=== PATIENT | female | born 1970 | race Two or more races ===

== ENCOUNTER 2020-06-04 10:34 | Outpatient (REF) | payer MEDICAID, SELFPAY | END 2020-06-04 10:35 | disposition home or self-care (01) | LOC: HO.LAB 10:34 | PROVIDERS: PCP Nurse Practitioner Family; Visit Provider Internal Medicine | DX: Z20.828 Contact with and (suspected) exposure to other viral communicable diseases (principal) | CPT/HCPCS: 87635 ==

== ENCOUNTER 2020-09-25 13:42 | Emergency (ER) | payer MEDICAID, SELFPAY ==
[2020-09-25 13:46] VITALS: BP 155/86; PULSE 114; RESP 18; TEMP 37.1; O2SAT 97; BMI 28.8
--- NOTE | 2020-09-25 14:11 | ED.EXTPRO ---
HPI - Extremity Problem General Chief complaint: Extremity Problem Stated complaint: BOTH ARM PAIN Time Seen by Provider: 09/25/20 14:10 Source: patient Mode of arrival: ambulatory Limitations: language barrier History of Present Illness HPI Narrative: 50 y/o female presenting with non-traumatic bilateral arm and hand pain for the last 2 weeks. She states it is intermittent and aching and sharp in nature. She states it is worse in the morning. She has had pain like this on/off for years. She has never had it worked up. She is in between doctors at this time. She states her hands are weak in the morning but improve throughout the day. No numbness. MD Complaint: extremity pain Onset (ago): week(s) (2-3) Pain Consistency: intermittent Location: left, right and upper extremity Severity scale (1-10): 6 Quality: aching Radiation: none Relieving factors: nothing Exacerbating factors: range of motion and palpation Related Data Previous Rx's Medication Instructions Recorded cyclobenzaprine 10 mg PO TID PRN #12 tab 09/25/20 ibuprofen 600 mg PO Q8H PRN #20 tab 09/25/20 oxycodone 5 mg PO Q8H PRN #5 tab 09/25/20 Allergies Allergy/AdvReac Type Severity Reaction Status Date / Time No Known Allergies Allergy Unverified 05/03/20 18:22 Review of Systems Review of Systems: Constitutional: No Fever, No Chills Cardiovascular: No Chest Pain, No SOB, No Orthopnea, No Edema Respiratory: No Cough, No Sputum, No Wheezing, No dyspnea Gastrointestinal: No Nausea, No Vomiting, No Diarrhea, No abdominal Pain Musculoskeletal: + joint pain, + Myalgias Skin: No Skin Lesions, No rash Neuro: No Weakness, No Numbness Heme/Lymph: No Bruising, No Lymphadenopathy PMFSH Past Medical History Attestation statement: The following information was validated with the patient. Social History Social History Advance Directives: No Advance Directives Information Provided: No Physical Exam Vital Signs: Vital Signs: Last Vital Signs Temp 98.7 F 09/25/20 13:46 Pulse 114 H 09/25/20 13:46 Resp 18 09/25/20 13:46 BP 155/86 H 09/25/20 13:46 Pulse Ox 97 09/25/20 13:46 Body Mass Index 28.8 Appearance: Alert. Oriented X3. No acute distress. HEENT: normal inspection CVS: Normal heart rate and rhythm. Pulses normal. Respiratory: No respiratory distress. Skin: Skin warm and dry. Normal skin color. Normal skin turgor. No rashes. Extremities: normal UE inspection with normal shoulder, elbow and wrist ROM bilaterally. diffuse soft tissue tenderness from upper trapezius to lower forearm. no skin changes, ecchymosis, erythema or warmth. no joint swelling or point tenderness Neuro: Oriented X 3. No motor deficit. No sensory deficit. Course Course Course Narrative: 50 y/o female presenting with acute on chronic UE pain. Diffuse tenderness of soft tissues. ?trigger point pain ?undiagnosed fibromyalgia. No evidence of acute infection, injury. Will provide short term pain relief methods with muscle relaxer and NSAID. Encouraged to f/u with PCP for more definitive treatment and workup. Critical Care Time Critical Care Time Critical Care Time: No Discharge Plan Discharge Clinical Impression: Arm pain Patient Disposition: Home, Self-Care Instructions: Arm Pain (ED) Additional Instructions: Take the prescribed medications as needed for pain. Follow up with your doctor this week. If you have worsening pain, numbness, tingling or any other concerning symptom come back to the ER for further evaluation. Prescriptions: New ibuprofen 600 mg tablet 600 mg PO Q8H PRN (Reason: pain) Qty: 20 RF: 0 cyclobenzaprine 10 mg tablet 10 mg PO TID PRN (Reason: muscle spasm) Qty: 12 RF: 0 oxycodone 5 mg tablet 5 mg PO Q8H PRN (Reason: pain) Qty: 5 RF: 0 Interventions: ED Discharge Assessment Last Done: 09/25/20 15:27 Discharge Date/Time: 09/25/20 15:28
== END 2020-09-25 15:28 | disposition home or self-care (01) ==
PROVIDERS: Emergency Provider Emergency Medicine Emergency Medical Services; PCP Nurse Practitioner Family
DX: M79.602 Pain in left arm (principal); M79.601 Pain in right arm; Z79.899 Other long term (current) drug therapy
CPT/HCPCS: 99283

== ENCOUNTER 2020-10-29 09:58 | Outpatient (REF) | payer MEDICAID, SELFPAY ==
--- NOTE | ~2020-10-29 | MM_ITS ---
EXAMINATION: MM SCREENING DIGITAL BREAST TOMOSYNTHESIS, BILATERAL CLINICAL INFORMATION: Screening. Asymptomatic. The lifetime risk of breast cancer based on the Tyrer-Cuzick Model is 6%. COMPARISON: Mammography: 10/24/2019, 09/27/2018, 09/12/2017 TECHNIQUE: Digital breast tomosynthesis is performed in both the craniocaudal and mediolateral oblique views along with computer-aided detection (CAD). Synthesized 2D images are generated from the tomosynthesis. Additional right CC and left MLO views are provided. FINDINGS: The breasts are heterogeneously dense, which may obscure small masses (ACR BI-RADS breast composition Category c). Breast tissue composition borders on extremely dense. The cyst central 11:30 o'clock left breast is slightly decreased in size from prior exam 2019 and substantially decreased in size since 2018. There is no interval mass or architectural abnormality or abnormal calcifications. The axilla and skin contours are unremarkable. MM/MM tomosynthesis screening BI IMPRESSION: No mammographic evidence of malignancy. ASSESSMENT: BI-RADS 2: Benign RECOMMENDATION: Routine annual mammography screening. This patient's information was entered into a reminder system with a target due date for their next mammogram.
== END 2020-10-29 09:59 | disposition home or self-care (01) ==
LOC: HO.MAMMO 09:58
PROVIDERS: PCP Nurse Practitioner Family; Visit Provider Nurse Practitioner Family
DX: Z12.31 Encounter for screening mammogram for malignant neoplasm of breast (principal)
CPT/HCPCS: 77063; 77067

== ENCOUNTER 2020-11-06 08:15 | Emergency (ER) | payer MEDICAID, SELFPAY ==
[2020-11-06 08:36] VITALS: BP 133/80; PULSE 96; RESP 18; TEMP 37.4; O2SAT 99; BMI 29.4
--- NOTE | 2020-11-06 09:12 | ED.URI ---
HPI - URI/Sore Throat General Chief Complaint: Upper Respiratory Symptoms Stated Complaint: body ache Time Seen by Provider: 11/06/20 09:05 Source: patient and hall monitor Mode of arrival: ambulatory Limitations: language barrier History of Present Illness HPI Narrative: 50 yo female with past medical history of hypothyroidism here with complaints of body aches, cough, headache x 2 days Had exposure to [id number] who is COVID positive 5 days ago Related Data Previous Rx's Medication Instructions Recorded cyclobenzaprine 10 mg PO TID PRN #12 tab 09/25/20 ibuprofen 600 mg PO Q8H PRN #20 tab 09/25/20 oxycodone 5 mg PO Q8H PRN #5 tab 09/25/20 Allergies Allergy/AdvReac Type Severity Reaction Status Date / Time No Known Allergies Allergy Unverified 10/15/20 13:32 Review of Systems Review of Systems: Yes all other systems are reviewed and are negative Constitutional: Constitutional: Reports no additional constitutional complaints, Reports body ache(s), Denies chills, Denies fever(s), Reports headache(s) and Denies weakness Eyes: Eyes: Reports no additional eye complaints and Denies change in vision ENT: Reports system reviewed and no additional complaints, except as documented, Denies dizziness, Reports headache(s), Denies nasal congestion, Denies nasal discharge and Denies neck pain Cardiovascular: Cardiovascular: Reports no additional cardiovascular complaints, Denies chest pain, Denies leg edema and Denies dyspnea Respiratory: Respiratory: Reports no additional respiratory complaints, Reports cough and Denies dyspnea Gastrointestinal: Gastrointestinal: Reports no additional gastrointestinal complaints, Denies abdominal pain, Denies diarrhea, Denies nausea and Denies vomiting Genitourinary: Genitourinary: Reports no additional female genitourinary complaints and Denies urinary incontinence Musculoskeletal: Musculoskeletal: Reports no additional musculoskeletal complaints, Denies back pain, Denies arthralgias, Denies joint swelling, Denies neck pain, Denies numbness and Denies tingling Integumentary/Breasts: Skin/Breast: Reports system reviewed and no additional complaints, except as docu and Denies rash Neurologic: Reports system reviewed and no additional complaints, except as documented, Denies Abnormal speech present, Denies dizziness, Reports headache(s), Denies numbness, Denies tingling and Denies weakness [facility] Past Medical History Attestation statement: The following information was validated with the patient. Source: old records reviewed and nursing notes reviewed Medical History Adult hypothyroidism Social History Social History Advance Directives: No Advance Directives Information Provided: No Physical Exam Vital Signs: Vital Signs: Last Vital Signs Temp 99.3 F 11/06/20 08:36 Pulse 96 11/06/20 08:36 Resp 18 11/06/20 08:36 BP 133/80 11/06/20 08:36 Pulse Ox 100 11/06/20 09:35 Body Mass Index 29.4 Const: General: cooperative, healthy appearing, comfortable and no acute distress Orientation/consciousness: patient oriented x3 Limitations: no limitations HENMT: Head: Yes normal to inspection Ears: hearing grossly normal bilaterally General nose exam: Normal external nose present Face and sinus: Yes normal facial exam Mouth: Normal oral and palatal mucosa present Throat: Yes posterior oropharynx normal Eyes: General: appearance normal, both eyes and all related structures Pupils: Equal, round and reactive pupils present Neck: Neck: Yes normal visual inspection Chest: Chest palpation & inspection: normal inspection of the chest Resp: Effort & Inspection: normal respiratory effort Auscultation: clear to auscultation bilaterally Cardio: Rate: regular rate Rhythm: regular rhythm Peripheral pulses: Peripheral pulses 2+ throughout GI: Inspection: Yes normal to inspection Palpation (GI): Soft to palpation and nontender Auscultation: normal bowel sounds Back/Spine/Pelvis: Thoracic/Lumbar Spine: thoracic and lumbar spine normal to inspection Skin: General skin exam: no rashes or lesions noted Neuro: General: patient oriented x3, no focal motor deficits and normal sensation to monofilament Cranial nerves: Yes Equal, round and reactive pupils present Cognition (Neuro): normal cognition Speech: No Abnormal speech present Gait exam (Neuro): Normal gait present Motor exam (neuro): 5/5 motor strength present throughout Extrem: General: Yes normal to inspection Course Course Course Narrative: flu like symptoms x several days with recent COVID exposure. Will send covid testing. 0950-COVID positive. Exam is benign. Vital signs stable. Speaking full sentences in no apparent distress with oxygen saturations greater than 99%. Reviewed worrisome signs and symptoms of when to return to the emergency department. Comfortable discharge home. MDM - URI/Sore Throat Medical Records Attestation: I reviewed the patient's medical records. Lab Data Attestation: I reviewed the patient's lab results. Labs: Lab Results 11/06/20 Range/Units 09:34 COVID-19 (MILA) Positive A (Negative) COVID-19 Clin Com See Note Discharge Plan Discharge Clinical Impression: COVID-19 Patient Disposition: Home, Self-Care Instructions: COVID-19 (Coronavirus Disease 2019) (ED) Additional Instructions: You have tested positive for COVID-19. Per the CDC you must quarantine for total of 10 days from when her symptoms started and her symptoms mostly resolved for greater than 24 hours before discontinuing her quarantine. Take Motrin or Tylenol if able as needed for pain or fever Increase fluids, rest Return to the emergency department for shortness of breath, chest pain, fever that does not respond to Motrin and Tylenol. Consider buying a pulse oximeter and monitoring her oxygen saturations at home and returning to the emergency department for oxygen saturations less than 90% Prescriptions: No Action ibuprofen 600 mg tablet 600 mg PO Q8H PRN (Reason: pain) Qty: 20 RF: 0 cyclobenzaprine 10 mg tablet 10 mg PO TID PRN (Reason: muscle spasm) Qty: 12 RF: 0 oxycodone 5 mg tablet 5 mg PO Q8H PRN (Reason: pain) Qty: 5 RF: 0 Referrals: Alireza Ritchie NP [Primary Care Provider] - 2 days Interventions: ED Discharge Assessment Last Done: 11/06/20 10:11 Discharge Date/Time: 11/06/20 10:11 Print Language: Vietnamese
[2020-11-06 09:35] VITALS: O2SAT 100
[2020-11-06 09:49] LABS: COVID-19 Test Positive (Negative)
== END 2020-11-06 10:11 | disposition home or self-care (01) ==
PROVIDERS: Nurse Practitioner Family; Emergency Provider Emergency Medicine Emergency Medical Services; PCP Nurse Practitioner Family
DX: U07.1 COVID-19 (principal)
CPT/HCPCS: 36415; 87635; 99283

== ENCOUNTER 2021-01-10 12:30 | Outpatient (REF) | payer MEDICAID, SELFPAY ==
[2021-01-10 14:13] LABS: MANUAL DIFF FLAG NO
[2021-01-10 14:16] LABS: Glucose Urine UA NEG (NEG); Leukocyte Esterase Urine NEG (NEG); Nitrite Urine NEG (NEG); PH 6.5 (5.0-8.0); Urine Blood NEG (NEG); Urine Ketones NEG (NEG); Urine Protein NEG (NEG-TRACE)
[2021-01-10 14:17] LABS: Appearance Urine CLEAR; Color Urine YELLOW
[2021-01-10 14:20] LABS: Basophils Absolute Auto 0.1 X10*3/uL (0.0-0.2); Basophils Percent Auto 0.8 % (0-2); Eosinophils Absolute Auto 0.1 X10*3/uL (0.0-0.4); Eosinophils Percent Auto 1.7 % (0-4); Hematocrit 34.9 % (37-47); Hemoglobin 10.9 g/dl (12.0-16.0); Imm Gran Abs Auto 0.02 X10*3/uL (0.00-0.03); Imm Gran Pct Auto 0.3 % (0.0-0.4); Lymphocytes Absolute Auto 2.2 X10*3/uL (1.2-4.9); Lymphocytes Percent Auto 36.4 % (20-40); Mean Corpuscular HGB Conc 31.2 g/dl (31.0-35.0); Mean Corpuscular Hemoglobin 24.8 pg (27.0-33.0); Mean Corpuscular Volume 79.3 fL (80-98); Mean Platelet Volume 11.2 fL (9.4-12.3); Monocytes Absolute Auto 0.6 X10*3/uL (0.1-1.2); Monocytes Percent Auto 9.8 % (2-11); Neutrophils Absolute Auto 3.1 X10*3/uL (2.0-8.3); Platelet Count 274 X10*3/uL (160-400); Red Cell Distribution Width 17.4 % (11.0-16.0)
[2021-01-10 14:27] LABS: RBC Urine 0 /HPF (0); Squamous Epithelial Cell Urine TRACE /LPF; WBC Urine 0 /HPF (0-4)
[2021-01-10 14:41] LABS: Alanine Aminotransferase 23 U/L (0-31); Albumin Level 4.2 g/dL (3.5-5.0); Alkaline Phosphatase 129 U/L (39-117); Anion Gap 13 (12-20); Aspartate Amino Transferase 25 U/L (5-31); Bilirubin Total 0.5 mg/dL (0.0-1.0); Blood Urea Nitrogen 12 mg/dL (9-16); C Reactive Protein 0.52 mg/dL (< or = 0.50); Calcium 9.2 mg/dL (8.4-10.2); Carbon Dioxide 27 mmol/L (22-29); Chloride 103 mmol/L (96-108); Estimated Glomerular Filt Rate 60; Glucose Random 72 mg/dL (60-115); Rheumatoid Factor < 15.0 IU/mL (<15.0); Sodium 139 mmol/L (135-145); Total Protein 7.2 g/dL (6.5-8.0)
[2021-01-10 15:14] LABS: Erythrocyte Sedimentation Rate 10 MM/HR (0-20)
[2021-01-11 09:31] LABS: Thyroglobulin Antibodies 8 IU/mL (< or = 1); Thyroid Peroxidase Antibodies 46 IU/mL (<9)
[2021-01-11 12:51] LABS: Cyclic Citrullinated Peptide <16 UNITS
[2021-01-11 14:25] LABS: Anti DNA DS Antibody 1 IU/mL; Antibody to SS-A Antigen <1.0 NEG AI (<1.0 NEG); Antibody to SS-B Antigen <1.0 NEG AI (<1.0 NEG); SM/Ribonucleoprotein Ab <1.0 NEG AI (<1.0 NEG); Smith Protein <1.0 NEG AI (<1.0 NEG)
[2021-01-11 20:06] LABS: Complement C3 89 mg/dL (83-193)
== END 2021-01-10 12:31 | disposition home or self-care (01) ==
LOC: HO.LAB 12:30
PROVIDERS: Visit Provider Student in an Organized Health Care Education/Training Program
DX: R76.8 Other specified abnormal immunological findings in serum (principal); Z79.899 Other long term (current) drug therapy; Z87.891 Personal history of nicotine dependence
CPT/HCPCS: 36415; 80053; 81001; 84443; 85025; 85652; 86140; 86160; 86200; 86225; 86235; 86376; 86431; 86800; 99202

== ENCOUNTER → 2021-02-06 15:54 | Outpatient (BNVA) | payer MEDICAID, SELFPAY | PROVIDERS: PCP Nurse Practitioner Family; Visit Provider Student in an Organized Health Care Education/Training Program | DX: R76.8 Other specified abnormal immunological findings in serum (principal); E03.9 Hypothyroidism, unspecified; E53.8 Deficiency of other specified B group vitamins; E55.9 Vitamin D deficiency, unspecified; F41.8 Other specified anxiety disorders; F17.210 Nicotine dependence, cigarettes, uncomplicated | CPT/HCPCS: 99212 ==

== ENCOUNTER 2021-06-20 10:29 | Outpatient (REF) | payer MEDICAID, SELFPAY ==
--- NOTE | ~2021-06-20 | XR_ITS ---
EXAMINATION: XR HAND, RIGHT XR HAND, LEFT CLINICAL INFORMATION: Pain. COMPARISON: Right wrist radiographs dated 07/19/2013. TECHNIQUE: AP, oblique, and lateral views of the right and left hand. FINDINGS: Right hand: No fracture or dislocation. Normal carpal alignment. No significant joint space narrowing or marginal osteophytes. No osseous erosion. No periarticular osteopenia. No abnormal soft tissue calcification. Left hand: No fracture or dislocation. Normal carpal alignment. No significant joint space narrowing or marginal osteophytes. No osseous erosion. No periarticular osteopenia. No abnormal soft tissue calcification. XR/XR hand RT min 3V IMPRESSION: Right hand: Unremarkable examination. Left hand: Unremarkable examination.
--- NOTE | ~2021-06-20 | XR_ITS ---
EXAMINATION: XR HAND, RIGHT XR HAND, LEFT CLINICAL INFORMATION: Pain. COMPARISON: Right wrist radiographs dated 07/19/2013. TECHNIQUE: AP, oblique, and lateral views of the right and left hand. FINDINGS: Right hand: No fracture or dislocation. Normal carpal alignment. No significant joint space narrowing or marginal osteophytes. No osseous erosion. No periarticular osteopenia. No abnormal soft tissue calcification. Left hand: No fracture or dislocation. Normal carpal alignment. No significant joint space narrowing or marginal osteophytes. No osseous erosion. No periarticular osteopenia. No abnormal soft tissue calcification. XR/XR hand LT min 3V IMPRESSION: Right hand: Unremarkable examination. Left hand: Unremarkable examination.
== END 2021-06-20 10:30 | disposition home or self-care (01) ==
LOC: HO.XRAY 10:29
PROVIDERS: Visit Provider General Practice
DX: M79.642 Pain in left hand (principal); M79.641 Pain in right hand
CPT/HCPCS: 73130

== ENCOUNTER 2021-07-19 09:48 | Outpatient (REF) | payer MEDICAID, SELFPAY ==
--- NOTE | 2021-07-19 09:54 | EMG_ITS ---
HISTORY OF PRESENT ILLNESS: This is a 51-year-old woman with a 2-month history of bilateral upper extremity pain and numbness. She has no other medical problems. PHYSICAL EXAMINATION: On examination, she is alert and oriented with normal intellectual functions. Cranial nerves II through XII are normal. Muscle tone and strength are normal in all 4 extremities. Deep tendon reflexes symmetrical. No Tinel or Phalen sign. IMPRESSION: Carpal tunnel syndrome. Nerve conduction EMG study: Moderately severe carpal tunnel syndrome bilaterally. Normal EMG of the right C5-T1 innervated muscles. MD CARMELA De Anda/TOMMY / [phone]
== END 2021-07-19 09:49 | disposition home or self-care (01) ==
LOC: HO.NEURO 09:48
PROVIDERS: PCP General Practice; Visit Provider General Practice
DX: G56.03 Carpal tunnel syndrome, bilateral upper limbs (principal)
CPT/HCPCS: 95885; 95913

== ENCOUNTER 2021-08-16 12:05 | Outpatient (REF) | payer MEDICAID, SELFPAY ==
[2021-08-16 13:14] LABS: Binax Internal Control QC Valid; Binax Lot number: 9864; Binax Now Covid-19 Ag Negative (Negative)
== END 2021-08-16 12:06 | disposition home or self-care (01) ==
LOC: HO.LAB 12:05
PROVIDERS: Visit Provider Internal Medicine
DX: Z20.822 Contact with and (suspected) exposure to COVID-19 (principal)
CPT/HCPCS: 36415; C9803

== ENCOUNTER 2021-11-18 14:00 | Outpatient (RCR) | payer MEDICAID, SELFPAY | END 2021-12-03 08:05 | disposition home or self-care (01) | LOC: HO.OT 14:00 | PROVIDERS: PCP Nurse Practitioner Primary Care; Visit Provider General Practice | DX: G56.03 Carpal tunnel syndrome, bilateral upper limbs (principal) | CPT/HCPCS: 29125; 97033; 97035; 97110; 97140; 97166; 97760 ==

== ENCOUNTER → 2021-11-20 10:05 | Outpatient (BNVA) | payer MEDICAID, SELFPAY | PROVIDERS: PCP Nurse Practitioner Primary Care; Visit Provider Orthopaedic Surgery | DX: G56.03 Carpal tunnel syndrome, bilateral upper limbs (principal); M65.4 Radial styloid tenosynovitis [de Quervain] | CPT/HCPCS: 20550; 99202; J1100 ==

== ENCOUNTER 2021-11-25 09:46 | Day surgery (SDC) | payer MEDICAID, SELFPAY ==
[2021-11-25 10:07] VITALS: BP 131/73; PULSE 84; RESP 16; TEMP 36.4; O2SAT 99
[2021-11-25 10:08] VITALS: BMI 32.5
--- NOTE | 2021-11-25 12:23 | MHC.SHP ---
Pre-Procedural Eval Section A Date of Service: 11/25/21 The patient is an INPATIENT: No Changes since office visit: No Cold of Flu in the past 2 weeks, No New Medical Problems, No Changes in Medication and No Patient answered all questions The History & Physical has been completed within 30 days and I have reviewed it.: Yes Section B Chief Complaint: carpal tunnel Allergies: Allergies Allergy/AdvReac Type Severity Reaction Status Date / Time No Known Allergies Allergy Verified 11/25/21 10:04 Plan I have reviewed the history and physical and performed a pertinent physical examination on my patient. No changes have occurred unless specified.
--- NOTE | 2021-11-25 12:23 | W.PM.OPN ---
Operative Note Operative Note Date of Service: 11/25/21 Narrative: Operative Note Preop diagnosis: 1. Left carpal tunnel syndrome 2. Left DeQuervain's tenosynovitis Postop diagnosis: 1. Left carpal tunnel syndrome 2. Left DeQuervain's tenosynovitis Procedure: 1. Left carpal tunnel release 2. Left 1st dorsal compartment release Surgeon: Joya Batista MD Anesthesia: local block using 1% lidocaine with epinephrine Findings: Thickened transverse carpal ligament Thickened 1st dorsal compartment. EBL: Less than 5 mL Tourniquet time: None Specimens: None Complications: None Disposition: Brought to recovery room in stable condition Plan: Follow-up for 7-10 days for wound check and suture removal Indications: The patient is 51 years old, with left carpal tunnel syndrome and DeQuervain's tenosynovitis that has been unresponsive to nonoperative management. The risks and benefits of operative treatment including but not limited to risk of damage to blood vessels, nerves, tendons, infection, persistent pain, persistent symptoms, recurrence or possible need for additional surgery were discussed with the patient and the patient wishes to proceed with surgery. Procedure: Once consent was obtained a local block was performed in the preop area using a combination of 1% lidocaine with epinephrine. The patient was then brought back to the operating suite and placed on the operative table in supine position. A tourniquet was applied to the proximal aspect of the left upper extremity and the limb was prepped and draped in a standard surgical fashion. Once assured that we had a good block, a 1.5 cm longitudinal incision was made centered over the left carpal tunnel. The incision was made through the skin to the subcutaneous tissues using a #15 blade. Dissection was made down to the level of the transverse carpal ligament with care being taken to protect the palmar cutaneous nerve. Once the transverse carpal ligament was clearly visualized, a longitudinal incision was made in the transverse carpal ligament 1st using a #15 blade, then using tenotomy scissors under direct visualization. Care was taken to look for and protect the motor branch of the median nerve when seen in this area. Once satisfied with our carpal tunnel release the wound was irrigated with normal saline. Once assured that we had a good block, a 1.5 cm longitudinal incision was made centered over the 1st dorsal compartment as it passed over the radial styloid of the left wrist. The incision was made through the skin to the subcutaneous tissues using a #15 blade. Careful dissection was made down to the level of the 1st dorsal compartment using tenotomy scissors, with care being taken to protect the nearby branches of the superficial radial nerve. Once the 1st dorsal compartment was exposed, A longitudinal incision was made in the 1st dorsal compartment 1st using a #15 blade, then using tenotomy scissors under direct visualization. The 1st dorsal compartment was noted to be thickened. Following our release, we saw smooth gliding abductor pollicis longus and extensor pollicis brevis tendons. Once satisfied with our 1st dorsal compartment release the wound was copiously irrigated with normal saline and hemostasis was obtained with a brief period of local pressure. The subcutaneous layer was closed with some 4-0 Vicryl suture, and the skin edges were reapproximated with some 5.0 nylon suture material. A sterile dressing was applied. The patient appears to have tolerated the procedure well and with no complications. All digits were well vascularized at the conclusion of the case.
[2021-11-25 13:48] VITALS: BP 116/71; PULSE 77; RESP 18; TEMP 36.6; O2SAT 97
== END 2021-11-25 14:27 | disposition home or self-care (01) ==
PROVIDERS: PCP Nurse Practitioner Primary Care; Visit Provider Orthopaedic Surgery
PROC: (CPT 64721; principal; 2021-11-25 11:00)
DX: G56.02 Carpal tunnel syndrome, left upper limb (principal); M65.4 Radial styloid tenosynovitis [de Quervain]
CPT/HCPCS: 64721; 25000; J0171

== ENCOUNTER → 2021-12-10 09:52 | Outpatient (BNVA) | payer MEDICAID, SELFPAY | PROVIDERS: PCP Nurse Practitioner Primary Care; Visit Provider Orthopaedic Surgery | DX: Z47.89 Encounter for other orthopedic aftercare (principal); M65.4 Radial styloid tenosynovitis [de Quervain]; G56.01 Carpal tunnel syndrome, right upper limb; Z86.69 Personal history of other diseases of the nervous system and sense organs | CPT/HCPCS: 99212 ==

== ENCOUNTER 2022-01-24 14:54 | Outpatient (REF) | payer MEDICAID, SELFPAY ==
--- NOTE | ~2022-01-24 | MM_ITS ---
EXAMINATION: MM SCREENING DIGITAL BREAST TOMOSYNTHESIS, BILATERAL CLINICAL INFORMATION: Screening. Asymptomatic. The lifetime risk of breast cancer based on the Tyrer-Cuzick Model is 6%. COMPARISON: Mammography: 10/29/2020, 10/24/2019, 09/27/2018, ultrasound right breast 03/25/2017, ultrasound left breast 10/09/2009. TECHNIQUE: Digital breast tomosynthesis is performed in both the craniocaudal and mediolateral oblique views along with computer-aided detection (CAD). Synthesized 2D images are generated from the tomosynthesis. FINDINGS: The breasts are heterogeneously dense, which may obscure small masses (ACR BI-RADS breast composition Category c). There are no significant masses, abnormal calcifications, or other abnormalities. There is a smooth nodule mid 12:00 left breast decreased in size from prior studies consistent with regressing fibrocystic changes as previously noted. The axilla and skin contours are unremarkable. No significant changes. MM/MM tomosynthesis screening BI IMPRESSION: No mammographic evidence of malignancy. ASSESSMENT: BI-RADS 2: Benign RECOMMENDATION: Routine annual mammography screening. This patient's information was entered into a reminder system with a target due date for their next mammogram.
== END 2022-01-24 14:55 | disposition home or self-care (01) ==
LOC: HO.MAMMO 14:54
PROVIDERS: Visit Provider Nurse Practitioner Primary Care
DX: Z12.31 Encounter for screening mammogram for malignant neoplasm of breast (principal)
CPT/HCPCS: 77063; 77067

== ENCOUNTER 2022-05-28 14:21 | Outpatient (REF) | payer MEDICAID, SELFPAY ==
--- NOTE | ~2022-05-28 | US_ITS ---
EXAMINATION: US PELVIS CLINICAL INFORMATION: Ovarian cyst, left side. COMPARISON: None. TECHNIQUE: Ultrasound of the pelvis is performed using both transabdominal and transvaginal transducers along with Doppler. Transvaginal imaging is performed due to inadequate visualization transabdominally. FINDINGS: UTERUS: The uterus is anteverted, anteflexed and measures 6.0 cm in length, 2.4 mL in AP and 3.9 cm in transverse dimension. The double wall endometrial thickness is 0.4 cm. The uterus is smooth in contour and has normal myometrial echogenicity. No visible fibroid. ADNEXA: Both ovaries are visualized. There is normal color flow to the adnexa. There is no ovarian torsion. There is no pelvic ascites or fluid collection. Right ovary measures 2.8 x 1.4 x 1.6 cm and volume 3.3 mL. There is punctate calcification seen. Left ovary is not visualized. There is no free fluid in the cul-de-sac. US/US pelvic and transvaginal IMPRESSION: Unremarkable uterus and right ovary. Left ovary is not seen.
== END 2022-05-28 14:22 | disposition home or self-care (01) ==
LOC: HO.US 14:21
PROVIDERS: Visit Provider Advanced Practice Midwife
DX: G56.01 Carpal tunnel syndrome, right upper limb (principal); M65.4 Radial styloid tenosynovitis [de Quervain]; N83.292 Other ovarian cyst, left side
CPT/HCPCS: 76830; 76856; 99212

== ENCOUNTER 2022-06-12 12:13 | Day surgery (SDC) | payer MEDICAID, SELFPAY ==
--- NOTE | 2022-06-12 10:03 | W.PM.OPN ---
Operative Note Operative Note Date of Service: 06/12/22 Narrative: Operative Note Preop diagnosis: 1. right DeQuervain's tenosynovitis 2. Right carpal tunnel syndrome Postop diagnosis: 1. right DeQuervain's tenosynovitis 2. Right carpal tunnel syndrome Procedure: 1. right 1st dorsal compartment release 2. Right carpal tunnel release Surgeon: Joya Batista MD Anesthesia: local block using 1% lidocaine with epinephrine Findings: Thickened 1st dorsal compartment. thickened transverse carpal ligament EBL: Less than 5 mL Tourniquet time: None Specimens: None Complications: None Disposition: Brought to recovery room in stable condition Plan: Follow-up for 7-10 days for wound check and suture removal Indications: The patient is 51 years old, with right carpal tunnel syndrome and right DeQuervain's tenosynovitis that has been unresponsive to nonoperative management. The risks and benefits of operative treatment including but not limited to risk of damage to blood vessels, nerves, tendons, infection, persistent pain, persistent symptoms, recurrence or possible need for additional surgery were discussed with the patient and the patient wishes to proceed with surgery. Procedure: Once consent was obtained a local block was performed in the preop area using a combination of 1% lidocaine with epinephrine. The patient was then brought back to the operating suite and placed on the operative table in supine position. A tourniquet was applied to the proximal aspect of the right upper extremity and the limb was prepped and draped in a standard surgical fashion. Once assured that we had a good block, a 2.0 cm longitudinal incision was made centered over the right carpal tunnel. The incision was made through the skin to the subcutaneous tissues using a #15 blade. Dissection was made down to the level of the transverse carpal ligament with care being taken to protect the palmar cutaneous nerve. Once the transverse carpal ligament was clearly visualized, a longitudinal incision was made in the transverse carpal ligament 1st using a #15 blade, then using tenotomy scissors under direct visualization. Care was taken to look for and protect the motor branch of the median nerve when seen in this area. Once satisfied with our carpal tunnel release the wound was irrigated with normal saline. Once assured that we had a good block, a 1.5 cm longitudinal incision was made centered over the 1st dorsal compartment as it passed over the radial styloid of the right wrist. The incision was made through the skin to the subcutaneous tissues using a #15 blade. Careful dissection was made down to the level of the 1st dorsal compartment using tenotomy scissors, with care being taken to protect the nearby branches of the superficial radial nerve. Once the 1st dorsal compartment was exposed, A longitudinal incision was made in the 1st dorsal compartment 1st using a #15 blade, then using tenotomy scissors under direct visualization. The 1st dorsal compartment was noted to be thickened. Following our release, we saw smooth gliding abductor pollicis longus and extensor pollicis brevis tendons. Once satisfied with our 1st dorsal compartment release the wound was copiously irrigated with normal saline and hemostasis was obtained with a brief period of local pressure. The subcutaneous layer was closed with some 4-0 Vicryl suture, and the skin edges were reapproximated with some 5.0 nylon suture material. A sterile dressing was applied. The patient appears to have tolerated the procedure well and with no complications. All digits were well vascularized at the conclusion of the case.
[2022-06-12 12:46] VITALS: BP 128/71; PULSE 87; RESP 16; TEMP 36.2; O2SAT 96; BMI 29.6
--- NOTE | 2022-06-12 15:34 | MHC.SHP ---
Pre-Procedural Eval Section A Date of Service: 06/12/22 The patient is an INPATIENT: No Changes since office visit: No Cold of Flu in the past 2 weeks, No New Medical Problems, No Changes in Medication and No Patient answered all questions The History & Physical has been completed within 30 days and I have reviewed it.: Yes Section B Chief Complaint: Carpal tunnel syndrome,radial styloid tenosynoviti Allergies: Allergies Allergy/AdvReac Type Severity Reaction Status Date / Time No Known Allergies Allergy Verified 05/28/22 09:42 Plan I have reviewed the history and physical and performed a pertinent physical examination on my patient. No changes have occurred unless specified.
== END 2022-06-12 16:04 | disposition home or self-care (01) ==
PROVIDERS: Visit Provider Orthopaedic Surgery
PROC: (CPT 64721; principal; 2022-06-12 13:40)
PROC: (CPT 64721; 2022-06-12 13:40)
DX: G56.01 Carpal tunnel syndrome, right upper limb (principal); M65.4 Radial styloid tenosynovitis [de Quervain]; M79.641 Pain in right hand; R20.0 Anesthesia of skin; E03.9 Hypothyroidism, unspecified; E53.8 Deficiency of other specified B group vitamins; E55.9 Vitamin D deficiency, unspecified; Z87.891 Personal history of nicotine dependence
CPT/HCPCS: 64721; 25000; J0171

== ENCOUNTER 2022-08-29 16:54 | Emergency (ER) | payer MEDICAID, SELFPAY ==
--- NOTE | ~2022-08-29 | US_ITS ---
EXAMINATION: US VENOUS ULTRASOUND WITH DOPPLER LOWER EXTREMITY, RIGHT CLINICAL INFORMATION: Right calf pain. COMPARISON: None TECHNIQUE: Ultrasound of the deep veins is performed from the hip to the calf with compression sonography and color and pulse Doppler assessment. Spectral analysis with color-flow imaging is performed. FINDINGS: There is normal venous compression and respiratory variation and augmented flow. The visualized common femoral vein, superficial femoral vein, profunda femoral vein, popliteal vein, and the trifurcation region shows no evidence of deep venous thrombosis. There is no significant popliteal fossa cyst. If the patient's symptoms persist, followup ultrasound in 5 days 7 days might be of value to exclude proximal propagation from a non-visualized calf vein. US/US venous duplex LE RT IMPRESSION: No DVT demonstrated in the right lower extremity.
--- NOTE | ~2022-08-29 | CT_ITS ---
EXAMINATION: CT HEAD WITHOUT CONTRAST CLINICAL INFORMATION: Headache. Blurred vision. COMPARISON: None. TECHNIQUE: Contiguous axial imaging was performed from the skull base to vertex without intravenous administration of contrast. Coronal and sagittal reformatted images are performed at the CT scanner. [This CT examination was performed using dose optimization techniques as appropriate, variously including the following: *Automated exposure control *Adjustment of mA and/or kV according to patient size (this includes techniques or standardized protocols for targeted exams where dose is matched to indication/reason for exam; i.e. extremities or head) *Use of iterative reconstruction technique] DLP: 678 mGy-cm. FINDINGS: There is no evidence of acute intracranial hemorrhage or territorial infarction. No abnormal mass-effect or midline shift is seen. Jensen to white matter differentiation is well preserved. No extra-axial fluid collections are identified. The ventricles are normal in size. There is no abnormal attenuation within the brain parenchyma. There is no osseous abnormality. The mastoid air cells and visualized portions of the paranasal sinuses are well-aerated. CT/CT head/brain wo IV con IMPRESSION: No acute intracranial pathology.
[2022-08-29 16:59] VITALS: BP 159/84; PULSE 85; RESP 18; TEMP 36.6; O2SAT 99; BMI 32.1
--- NOTE | 2022-08-29 17:06 | ED_ITS ---
HPI - Headache General Chief Complaint: Headache <Adriana Grissom NP - Last Filed: 08/29/22 17:09> Stated Complaint: headache, blurred vision, xray for neck pain? <Adriana Grissom NP - Last Filed: 08/29/22 17:09> Time Seen by Provider: 08/29/22 19:26 <Adriana Grissom NP - Last Filed: 08/29/22 17:09> Source: patient <KANU hC - Last Filed: 08/29/22 21:41> Mode of arrival: ambulatory <KANU Ch Last Filed: 08/29/22 21:41> Limitations: no limitations <KANU Ch Last Filed: 08/29/22 21:41> History of Present Illness HPI Narrative: 52-year-old female history of carpal tunnel syndrome, de Quervain tenosynovitis presenting to the emergency department with complaints of headache, bilateral frontal headache that has been intermittent and severe in nature for the past 2 weeks, not improving with [id number] medications. She tells me when she takes Tylenol it gets better slightly and then once it is wearing off it comes back again. She rates it a 7/10. She reports that she has had intermittent blurred vision for the past 2 weeks when she gets severe pain. She also tells me that this feels like her typical headache however did not going away. Patient reports that she is also having dull aching pain to her right calf, she tells me this has been going on for a few months however she has never gotten it checked out. She does not have a history of PE or DVT. Not on blood thinners. Denies fevers, chills, chest pain, shortness of breath, nausea, vomiting, dizziness, weakness. NIH stroke scale 0 <KANU Ch Last Filed: 08/29/22 21:41> Related Data Home Medications: Home Medications Medication Instructions Recorded Confirmed cholecalciferol (vitamin D3) 50 50 mcg PO DAILY 01/10/21 mcg (2,000 unit) capsule cyanocobalamin (vitamin B-12) 1,000 mcg PO DAILY 01/10/21 1,000 mcg capsule levothyroxine 150 mcg capsule 150 mcg PO DAILY 01/10/21 01/10/21 Previous Rx's Medication Instructions Recorded ibuprofen 600 mg tablet 600 mg PO Q8H PRN pain #20 tabs 09/25/20 hydrocodone 5 mg-acetaminophen 325 1 tab PO Q4-6H PRN pain #10 tabs 06/12/22 mg tablet diphenhydramine HCl 25 mg capsule 25 mg PO ONCE #10 caps 08/29/22 (Benadryl) metoclopramide HCl 5 mg tablet 5 mg PO DAILY #10 tabs 08/29/22 (Reglan) <Adriana Grissom NP - Last Filed: 08/29/22 17:09> Allergies/Adverse Reactions: Allergies Allergy/AdvReac Type Severity Reaction Status Date / Time No Known Allergies Allergy Verified 06/25/22 11:44 <Adriana Grissom NP - Last Filed: 08/29/22 17:09> Review of Systems Review of Systems: Constitutional : No Weight loss, No Fever, No Chills, No Fatigue, No Malaise ENT/Mouth : No sore throat, No Rhinorrhea Eyes: No Eye Pain, No Swelling, No Redness Cardiovascular : No Chest Pain, No SOB, No Dyspnea on Exertion, No Orthopnea, No Edema, No Palpitations Respiratory : No Cough, No Sputum, No Wheezing Gastrointestinal : No Nausea, No Vomiting, No Diarrhea, No Constipation, No abdominal Pain, No Hematochezia, No Melena Genitourinary : No Dysuria, No Urinary Frequency, No Hematuria, Musculoskeletal : No joint pain, No Myalgias, No Joint Swelling, +RLE pain Skin : No Skin Lesions, No rash Neuro : No Weakness, No Numbness, No Dizziness, + Headache Psych : No Anxiety/Panic, No Depression All other systems reviewed and are negative <KANU Ch - Last Filed: 08/29/22 21:41> Yes all other systems are reviewed and are negative <KANU Ch Last Filed: 08/29/22 21:41> [facility] Past Medical History Attestation statement: The following information was validated with the patient. <KANU Ch Last Filed: 08/29/22 21:41> Source: old records reviewed and nursing notes reviewed <KANU Ch - Last Filed: 08/29/22 21:41> Medical History: Medical History Adult hypothyroidism Anxiety Depression Diffuse cystic mastopathy of both breasts Midline back pain Poor vision Tobacco abuse Vitamin B 12 deficiency Vitamin D deficiency <Adriana Grissom NP - Last Filed: 08/29/22 17:09> Surgical History: Surgical History Hx of tubal ligation <Adriana Grissom NP - Last Filed: 08/29/22 17:09> Family History Family History: Family History Mother Diabetes Leukemia <Adriana Grissom NP - Last Filed: 08/29/22 17:09> Social History Social History: Social History Alcohol intake: current Patient Tobacco Use Status: Former Tobacco user Tobacco use type: Cigarette Cigarettes Per Day: 3 Years Smoked: 20 Advance Directives: No Advance Directives Information Provided: No Current occupational status: employed 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 <Adriana Grissmo NP - Last Filed: 08/29/22 17:09> Physical Exam Vital Signs: Vital Signs: Last Vital Signs Temp 97.8 F 08/29/22 19:31 Pulse 68 08/29/22 19:31 Resp 16 08/29/22 19:31 BP 131/77 08/29/22 19:31 Pulse Ox 100 08/29/22 19:31 O2 Del Method 08/29/22 19:31 BMI result Body Mass Index 32.1 <Adriana Grissom NP - Last Filed: 08/29/22 17:09> Vital Signs: Last Vital Signs Temp 97.8 F 08/29/22 19:31 Pulse 68 08/29/22 19:31 Resp 16 08/29/22 19:31 BP 131/77 08/29/22 19:31 Pulse Ox 100 08/29/22 19:31 O2 Del Method 08/29/22 19:31 BMI result Body Mass Index 32.1 vss <KANU Ch - Last Filed: 08/29/22 21:41> Appearance: Alert.? Oriented X3.? No acute distress.? Head: Normocephalic, atraumatic, no step-offs or deformities Eyes: Pupils equal, round and reactive to light.? Neck: Normal inspection.? Neck supple.? CVS: Normal heart rate and rhythm.? Pulses normal.? Respiratory: No respiratory distress.? Breath sounds normal.? Abdomen: Soft and nontender.? Skin: Skin warm and dry.? Normal skin color.? Normal skin turgor.? Extremities: No lower extremity edema.? + R sided calf pain. 5/5 strength to bilateral upper and lower extremities Neuro: Oriented X 3.? No motor deficit.? No sensory deficit. CN 2-12 intact <KANU Ch - Last Filed: 08/29/22 21:41> Course Course Course Narrative: This is a rapid medical exam. Defer additional HPI, ROS, PE to primary provider. 52-year-old female here with 2 weeks of headache, blurry vision. <Adriana Grissom NP - Last Filed: 08/29/22 17:09> Reevaluation(s) Reevaluation #1: CBC appears to be within normal limits, chemistry with no acute electrolyt e abnormalities requiring intervention. Normal inflammatory markers, low suspicion for temporal arteritis. COVID negative. Ultrasound of right lower extremity with no acute findings. CT of head unremarkable. I did re-evaluate patient after fluids, Reglan and Benadryl and patient tells me she feels much better, she no longer has a headache, tells me that her right calf pain is not present at this time. Advised her to follow-up with her PCP and return in 5-7 days if symptoms persist. Explained all discharge instructions with patient. I will send her home with Benadryl and Reglan as needed for headaches I did educate her that she should take both together not take Reglan own as this can cause abnormal twitching. Educated patient on diagnosis and treatment plan, answered all question, patient verbalizes understanding. At this time patient will be discharged home, advised to return with new or worsening symptoms. Educated on worrisome signs and symptoms and when to return. At this time I feel comfortable discharge home. To know at time of discharge patient feeling better stable vital signs, NIH stroke scale 0, neuro nonfocal and patient tells me she is back to baseline <KANU Ch - Last Filed: 08/29/22 21:41> Time: 21:41 <KANU Ch - Last Filed: 08/29/22 21:41> Medications Administered Discontinued Medications Generic Name Dose Route Start Last Admin Trade Name Freq PRN Reason Stop Dose Admin Diphenhydramine HCl 25 mg 08/29/22 20:11 08/29/22 20:26 Diphenhydramine Hcl 50 Mg/Ml Vial IVPUSH 08/29/22 20:12 25 mg ONCE ONE Administration Sodium Chloride 1,000 mls @ 999 mls/hr 08/29/22 20:15 08/29/22 20:20 Ns IV 08/29/22 21:15 999 mls/hr .Q1H1M DARCY Administration Metoclopramide HCl 10 mg 08/29/22 20:11 08/29/22 20:25 Metoclopramide Hcl 10 Mg/2 Ml Vial IVPUSH 08/29/22 20:12 10 mg ONCE ONE Administration <Adriana Grissom NP - Last Filed: 08/29/22 17:09> Medications Administered Discontinued Medications Generic Name Dose Route Start Last Admin Trade Name Freq PRN Reason Stop Dose Admin Diphenhydramine HCl 25 mg 08/29/22 20:11 08/29/22 20:26 Diphenhydramine Hcl 50 Mg/Ml Vial IVPUSH 08/29/22 20:12 25 mg ONCE ONE Administration Sodium Chloride 1,000 mls @ 999 mls/hr 08/29/22 20:15 08/29/22 20:20 Ns IV 08/29/22 21:15 999 mls/hr .Q1H1M DARCY Administration Metoclopramide HCl 10 mg 08/29/22 20:11 08/29/22 20:25 Metoclopramide Hcl 10 Mg/2 Ml Vial IVPUSH 08/29/22 20:12 10 mg ONCE ONE Administration <KANU Ch - Last Filed: 08/29/22 21:41> Medical Decision Making Medical Decision Making MDM Narrative: 2001 52 year old female presents w/ headache and right calf pain PE w/ discomfort w/ palpatio of right calf. Neuro nonfocal. Cerebellar intact. NIHSS 0 Likely headache versus migraine unlikely stroke, posterior stroke, meningitis encephalitis. Right calf pain likely secondary to muscle sprain or strain, unlikely DVT, muscle tear. Plan at this time labs, imaging <KANU Ch - Last Filed: 08/29/22 21:41> Differential Diagnosis Differential Diagnoses: The differential diagnosis associated with the presentation includes <KANU Ch - Last Filed: 08/29/22 21:41> Likely headache versus migraine unlikely stroke, posterior stroke, meningitis encephalitis. Right calf pain likely secondary to muscle sprain or strain, unlikely DVT, muscle tear. <KANU Ch - Last Filed: 08/29/22 21:41> Admission/Observation Consideration of admission/observation: Escalation of care including admission/observation considered <KANU Ch - Last Filed: 08/29/22 21:41> Unlikely <KANU Ch - Last Filed: 08/29/22 21:41> Lab Data [facility] Lab Attestation statement: I reviewed the patient's lab results. <KANU Ch - Last Filed: 08/29/22 21:41> Result Diagrams: 08/29/22 17:27 08/29/22 17:27 <Adriana Grissom NP - Last Filed: 08/29/22 17:09> Labs: Lab Results 08/29/22 08/29/22 08/29/22 Range/Units 17:27 17:27 17:27 WBC 6.7 (4.8-10.8) X10*3/uL RBC 4.70 (4.20-5.50) X10*6/uL Hgb 12.9 (12.0-16.0) g/dl Hct 38.9 (37.0-47.0) % MCV 82.8 (80.0-98.0) fL MCH 27.4 (27.0-33.0) pg MCHC 33.2 (31.0-35.0) g/dl RDW 13.8 (11.0-16.0) % Plt Count 257 (160-400) X10*3/uL MPV 11.4 (9.4-12.3) fL Immature Gran % (Auto) 0.1 (0.0-0.4) % Neut % (Auto) 51.5 (45-73) % Lymph % (Auto) 37.2 (20-40) % [place] % (Auto) 7.8 (2-11) % Eos % (Auto) 2.5 (0-4) % Baso % (Auto) 0.9 (0-2) % Lymph # (Auto) 2.5 (1.2-4.9) X10*3/uL [place] # (Auto) 0.5 (0.1-1.2) X10*3/uL Eos # (Auto) 0.2 (0.0-0.4) X10*3/uL Baso # (Auto) 0.1 (0.0-0.2) X10*3/uL Abs Immat Gran (auto) 0.01 (0.00-0.03) X10*3/uL Absolute Neuts (auto) 3.4 (2.0-8.3) x10*3/uL Absolute Nucleated RBC 0.000 (0.0-0.012) X10*3/uL Nucleated RBC % (auto) 0.0 (0.0-0.2) /100WBC ESR (0-20) MM/HR Sodium 141 (135-145) mmol/L Potassium 3.8 (3.3-5.1) mmol/L Chloride 106 (96-108) mmol/L Carbon Dioxide 24 (22-29) mmol/L Anion Gap 15 (12-20) BUN 16 (9-16) mg/dL Creatinine 0.83 (0.5-1.4) mg/dL Estim Creat Clear Calc 72.8 Estimated GFR > 60 Random Glucose 107 (60-115) mg/dL Calcium 9.3 (8.4-10.2) mg/dL Total Bilirubin 0.6 (0.0-1.0) mg/dL Direct Bilirubin 0.2 (0.0-0.5) mg/dL AST 21 (5-31) U/L ALT 23 (0-31) U/L Alkaline Phosphatase 160 H (39-117) U/L C-Reactive Protein 0.27 (< or = 0.50) mg/dL Total Protein 7.5 (6.5-8.0) g/dL Albumin 4.2 (3.5-5.0) g/dL COVID-19 (MILA) Negative (Negative) COVID-19 Clin Com See Note 08/29/22 Range/Units 17:27 WBC (4.8-10.8) X10*3/uL RBC (4.20-5.50) X10*6/uL Hgb (12.0-16.0) g/dl Hct (37.0-47.0) % MCV (80.0-98.0) fL MCH (27.0-33.0) pg MCHC (31.0-35.0) g/dl RDW (11.0-16.0) % Plt Count (160-400) X10*3/uL MPV (9.4-12.3) fL Immature Gran % (Auto) (0.0-0.4) % Neut % (Auto) (45-73) % Lymph % (Auto) (20-40) % [place] % (Auto) (2-11) % Eos % (Auto) (0-4) % Baso % (Auto) (0-2) % Lymph # (Auto) (1.2-4.9) X10*3/uL [place] # (Auto) (0.1-1.2) X10*3/uL Eos # (Auto) (0.0-0.4) X10*3/uL Baso # (Auto) (0.0-0.2) X10*3/uL Abs Immat Gran (auto) (0.00-0.03) X10*3/uL Absolute Neuts (auto) (2.0-8.3) x10*3/uL Absolute Nucleated RBC (0.0-0.012) X10*3/uL Nucleated RBC % (auto) (0.0-0.2) /100WBC ESR 7 (0-20) MM/HR Sodium (135-145) mmol/L Potassium (3.3-5.1) mmol/L Chloride (96-108) mmol/L Carbon Dioxide (22-29) mmol/L Anion Gap (12-20) BUN (9-16) mg/dL Creatinine (0.5-1.4) mg/dL Estim Creat Clear Calc Estimated GFR Random Glucose (60-115) mg/dL Calcium (8.4-10.2) mg/dL Total Bilirubin (0.0-1.0) mg/dL Direct Bilirubin (0.0-0.5) mg/dL AST (5-31) U/L ALT (0-31) U/L Alkaline Phosphatase (39-117) U/L C-Reactive Protein (< or = 0.50) mg/dL Total Protein (6.5-8.0) g/dL Albumin (3.5-5.0) g/dL COVID-19 (MILA) (Negative) COVID-19 Clin Com <Adriana Grissom [employer]ESS PROJECT ENGINEER - Last Filed: 08/29/22 17:09> Lab Results 08/29/22 08/29/22 08/29/22 Range/Units 17:27 17:27 17:27 WBC 6.7 (4.8-10.8) X10*3/uL RBC 4.70 (4.20-5.50) X10*6/uL Hgb 12.9 (12.0-16.0) g/dl Hct 38.9 (37.0-47.0) % MCV 82.8 (80.0-98.0) fL MCH 27.4 (27.0-33.0) pg MCHC 33.2 (31.0-35.0) g/dl RDW 13.8 (11.0-16.0) % Plt Count 257 (160-400) X10*3/uL MPV 11.4 (9.4-12.3) fL Immature Gran % (Auto) 0.1 (0.0-0.4) % Neut % (Auto) 51.5 (45-73) % Lymph % (Auto) 37.2 (20-40) % [place] % (Auto) 7.8 (2-11) % Eos % (Auto) 2.5 (0-4) % Baso % (Auto) 0.9 (0-2) % Lymph # (Auto) 2.5 (1.2-4.9) X10*3/uL [place] # (Auto) 0.5 (0.1-1.2) X10*3/uL Eos # (Auto) 0.2 (0.0-0.4) X10*3/uL Baso # (Auto) 0.1 (0.0-0.2) X10*3/uL Abs Immat Gran (auto) 0.01 (0.00-0.03) X10*3/uL Absolute Neuts (auto) 3.4 (2.0-8.3) x10*3/uL Absolute Nucleated RBC 0.000 (0.0-0.012) X10*3/uL Nucleated RBC % (auto) 0.0 (0.0-0.2) /100WBC ESR (0-20) MM/HR Sodium 141 (135-145) mmol/L Potassium 3.8 (3.3-5.1) mmol/L Chloride 106 (96-108) mmol/L Carbon Dioxide 24 (22-29) mmol/L Anion Gap 15 (12-20) BUN 16 (9-16) mg/dL Creatinine 0.83 (0.5-1.4) mg/dL Estim Creat Clear Calc 72.8 Estimated GFR > 60 Random Glucose 107 (60-115) mg/dL Calcium 9.3 (8.4-10.2) mg/dL Total Bilirubin 0.6 (0.0-1.0) mg/dL Direct Bilirubin 0.2 (0.0-0.5) mg/dL AST 21 (5-31) U/L ALT 23 (0-31) U/L Alkaline Phosphatase 160 H (39-117) U/L C-Reactive Protein 0.27 (< or = 0.50) mg/dL Total Protein 7.5 (6.5-8.0) g/dL Albumin 4.2 (3.5-5.0) g/dL COVID-19 (MILA) Negative (Negative) COVID-19 Clin Com See Note 08/29/22 Range/Units 17:27 WBC (4.8-10.8) X10*3/uL RBC (4.20-5.50) X10*6/uL Hgb (12.0-16.0) g/dl Hct (37.0-47.0) % MCV (80.0-98.0) fL MCH (27.0-33.0) pg MCHC (31.0-35.0) g/dl RDW (11.0-16.0) % Plt Count (160-400) X10*3/uL MPV (9.4-12.3) fL Immature Gran % (Auto) (0.0-0.4) % Neut % (Auto) (45-73) % Lymph % (Auto) (20-40) % [place] % (Auto) (2-11) % Eos % (Auto) (0-4) % Baso % (Auto) (0-2) % Lymph # (Auto) (1.2-4.9) X10*3/uL [place] # (Auto) (0.1-1.2) X10*3/uL Eos # (Auto) (0.0-0.4) X10*3/uL Baso # (Auto) (0.0-0.2) X10*3/uL Abs Immat Gran (auto) (0.00-0.03) X10*3/uL Absolute Neuts (auto) (2.0-8.3) x10*3/uL Absolute Nucleated RBC (0.0-0.012) X10*3/uL Nucleated RBC % (auto) (0.0-0.2) /100WBC ESR 7 (0-20) MM/HR Sodium (135-145) mmol/L Potassium (3.3-5.1) mmol/L Chloride (96-108) mmol/L Carbon Dioxide (22-29) mmol/L Anion Gap (12-20) BUN (9-16) mg/dL Creatinine (0.5-1.4) mg/dL Estim Creat Clear Calc Estimated GFR Random Glucose (60-115) mg/dL Calcium (8.4-10.2) mg/dL Total Bilirubin (0.0-1.0) mg/dL Direct Bilirubin (0.0-0.5) mg/dL AST (5-31) U/L ALT (0-31) U/L Alkaline Phosphatase (39-117) U/L C-Reactive Protein (< or = 0.50) mg/dL Total Protein (6.5-8.0) g/dL Albumin (3.5-5.0) g/dL COVID-19 (MILA) (Negative) COVID-19 Clin Com <KANU Ch - Last Filed: 08/29/22 21:41> Independent Interpretation I performed an independent interpretation of an: Ultrasound (Negative) and CT Scan (Negative) <KANU Ch - Last Filed: 08/29/22 21:41> Radiology Impression Discussion of test interpretation with radiology: I have reviewed the radiologist's reading. <KANU Ch - Last Filed: 08/29/22 21:41> External Record Review External record reviewed: Inpatient record, Office record and Outside ED record <KANU Ch - Last Filed: 08/29/22 21:41> Prescription Management I considered prescription management with: Other (Benadryl and Reglan for headache) <KANU Ch - Last Filed: 08/29/22 21:41> Core Measures AMI core measures followed: Yes <KANU Ch - Last Filed: 08/29/22 21:41> Measure exclusions: not indicated <KANU Ch - Last Filed: 08/29/22 21:41> Discharge Plan Discharge Clinical Impression: Headache, Pain of right calf <Adriana Grissom NP - Last Filed: 08/29/22 17:09> Patient Disposition: Home, Self-Care <Adriana Grissom NP - Last Filed: 08/29/22 17:09> Instructions: Acute Headache (ED), Leg Cramps (ED), Leg Pain (ED) <Adriana Grissom NP - Last Filed: 08/29/22 17:09> Additional Instructions: Take your medications as prescribed. If you were prescribed antibiotics today, it is important that you take your medication to their entirety, do not skip any doses, do not finish them early. Follow-up with your primary care provider this week. Return to the emergency department with new or worsening symptoms. Such as fevers, chills, chest pain, shortness of breath, nausea, vomiting, dizziness, headache, vision changes, lethargy In case of emergency call 911 Follow up with neurology if symptoms persist Reglan and Benadryl have been sent to your pharmacy you can take this as needed for migraines. Please do not take Reglan alone as it can cause involuntary twitching. If the patient's symptoms persist, followup ultrasound in 5 days 7 days might be of value to exclude proximal propagation from a non-visualized calf vein. <Adriana Grissom NP - Last Filed: 08/29/22 17:09> Prescriptions: New metoclopramide HCl [Reglan] 5 mg tablet 5 mg PO DAILY Qty: 10 0RF diphenhydramine HCl [Benadryl] 25 mg capsule 25 mg PO ONCE Qty: 10 0RF No Action ibuprofen 600 mg tablet 600 mg PO Q8H PRN (Reason: pain) Qty: 20 0RF hydrocodone-acetaminophen 5-325 mg tablet 1 tab PO Q4-6H PRN (Reason: pain) Qty: 10 0RF Rx Instructions: Partial Fill upon patient request. levothyroxine 150 mcg capsule 150 mcg PO DAILY cholecalciferol (vitamin D3) 50 mcg (2,000 unit) capsule 50 mcg PO DAILY cyanocobalamin (vitamin B-12) 1,000 mcg capsule 1,000 mcg PO DAILY Rx Instructions: 2 caps daily <Adriana Grissom NP - Last Filed: 08/29/22 17:09> Referrals: [facility] [Primary Care Provider] - 2 days <Adriana Grissom NP - Last Filed: 08/29/22 17:09> Stand Alone Forms: Work/School Release <Adriana Grissom NP - Last Filed: 08/29/22 17:09>
[2022-08-29 17:32] LABS: MANUAL DIFF FLAG NO
[2022-08-29 17:34] LABS: Basophils Absolute Auto 0.1 X10*3/uL (0.0-0.2); Basophils Percent Auto 0.9 % (0-2); Eosinophils Absolute Auto 0.2 X10*3/uL (0.0-0.4); Eosinophils Percent Auto 2.5 % (0-4); Hematocrit 38.9 % (37.0-47.0); Hemoglobin 12.9 g/dl (12.0-16.0); Imm Gran Abs Auto 0.01 X10*3/uL (0.00-0.03); Imm Gran Pct Auto 0.1 % (0.0-0.4); Lymphocytes Absolute Auto 2.5 X10*3/uL (1.2-4.9); Lymphocytes Percent Auto 37.2 % (20-40); Mean Corpuscular HGB Conc 33.2 g/dl (31.0-35.0); Mean Corpuscular Hemoglobin 27.4 pg (27.0-33.0); Mean Corpuscular Volume 82.8 fL (80.0-98.0); Mean Platelet Volume 11.4 fL (9.4-12.3); Monocytes Absolute Auto 0.5 X10*3/uL (0.1-1.2); Monocytes Percent Auto 7.8 % (2-11); Neutrophils Absolute Auto 3.4 x10*3/uL (2.0-8.3); Neutrophils Percent Auto 51.5 % (45-73); Platelet Count 257 X10*3/uL (160-400); Red Cell Distribution Width 13.8 % (11.0-16.0); White Blood Count 6.7 X10*3/uL (4.8-10.8)
[2022-08-29 17:48] LABS: COVID-19 Test Negative (Negative); IDNOW Serial# BCCEAD1C
[2022-08-29 17:55] LABS: Alanine Aminotransferase 23 U/L (0-31); Albumin Level 4.2 g/dL (3.5-5.0); Alkaline Phosphatase 160 U/L (39-117); Anion Gap 15 (12-20); Aspartate Amino Transferase 21 U/L (5-31); Bilirubin Direct 0.2 mg/dL (0.0-0.5); Bilirubin Total 0.6 mg/dL (0.0-1.0); Blood Urea Nitrogen 16 mg/dL (9-16); Calcium 9.3 mg/dL (8.4-10.2); Carbon Dioxide 24 mmol/L (22-29); Chloride 106 mmol/L (96-108); Creatinine Clr Calc Pharmacy 72.8; Estimated Glomerular Filt Rate > 60; Glucose Random 107 mg/dL (60-115); Potassium 3.8 mmol/L (3.3-5.1); Sodium 141 mmol/L (135-145); Total Protein 7.5 g/dL (6.5-8.0)
[2022-08-29 19:31] VITALS: BP 131/77; PULSE 68; RESP 16; TEMP 36.6; O2SAT 100
[2022-08-29 20:08] LABS: C Reactive Protein 0.27 mg/dL (< or = 0.50)
[2022-08-29] MEDS: 0.9 % Sodium Chloride 1,000 ML 999 ML IV (20:20)
[2022-08-29] MEDS: Metoclopramide HCl 10 MG/2 ML VIAL IVPUSH (20:25)
[2022-08-29] MEDS: diphenhydrAMINE HCL 50 MG/ML VIAL 25 MG IVPUSH (20:26)
[2022-08-29 20:39] LABS: Erythrocyte Sedimentation Rate 7 MM/HR (0-20)
== END 2022-08-29 21:51 | disposition home or self-care (01) ==
PROVIDERS: Nurse Practitioner Family; Physician Assistant; Emergency Provider Emergency Medicine
DX: R51.9 Headache, unspecified (principal); M79.604 Pain in right leg; R60.0 Localized edema; Z20.822 Contact with and (suspected) exposure to COVID-19; Z20.828 Contact with and (suspected) exposure to other viral communicable diseases; Z79.899 Other long term (current) drug therapy
CPT/HCPCS: 70450; 80048; 80076; 85025; 85652; 86140; 87635; 93971; 96374; 96375; 99284; J1200; J2765

== ENCOUNTER 2022-09-11 13:50 | Outpatient (REF) | payer MEDICAID, SELFPAY ==
--- NOTE | ~2022-09-11 | XR_ITS ---
EXAMINATION: XR RIGHT FOOT AND ANKLE CLINICAL INFORMATION: Right posterior ankle and right plantar foot pain. COMPARISON: None. TECHNIQUE: 2 views of the right ankle and 3 views of the right foot. FINDINGS: There is no evidence of acute fracture or dislocation of the right ankle. Right ankle mortise appears intact. There is some soft tissue swelling seen about the lateral malleolus. There is no evidence of acute fracture or dislocation of the right foot. A small spur seen at the site of insertion of the Achilles tendon. There is some calcification seen about the distal aspect of the tendon. Possible injury of the distal tendon may be present. Right foot joint spaces are maintained. No erosive changes are appreciated. There is soft tissue prominence seen about the lateral aspect of the 5th metatarsophalangeal joint. XR/XR foot RT min 3V IMPRESSION: 1. Soft tissue swelling overlying the lateral malleolus. 2. Calcific densities seen about the Achilles tendon. 3. Soft tissue prominence about the left 5th metatarsophalangeal joint.
--- NOTE | ~2022-09-11 | XR_ITS ---
EXAMINATION: XR RIGHT FOOT AND ANKLE CLINICAL INFORMATION: Right posterior ankle and right plantar foot pain. COMPARISON: None. TECHNIQUE: 2 views of the right ankle and 3 views of the right foot. FINDINGS: There is no evidence of acute fracture or dislocation of the right ankle. Right ankle mortise appears intact. There is some soft tissue swelling seen about the lateral malleolus. There is no evidence of acute fracture or dislocation of the right foot. A small spur seen at the site of insertion of the Achilles tendon. There is some calcification seen about the distal aspect of the tendon. Possible injury of the distal tendon may be present. Right foot joint spaces are maintained. No erosive changes are appreciated. There is soft tissue prominence seen about the lateral aspect of the 5th metatarsophalangeal joint. XR/XR ankle RT 2V IMPRESSION: 1. Soft tissue swelling overlying the lateral malleolus. 2. Calcific densities seen about the Achilles tendon. 3. Soft tissue prominence about the left 5th metatarsophalangeal joint.
== END 2022-09-11 13:51 | disposition home or self-care (01) ==
LOC: HO.XRAY 13:50
PROVIDERS: Visit Provider Nurse Practitioner Family
DX: M79.604 Pain in right leg (principal)
CPT/HCPCS: 73600; 73630

== ENCOUNTER → 2022-09-24 08:50 | Outpatient (BNVA) | payer MEDICAID, SELFPAY | PROVIDERS: Visit Provider Physician Assistant | DX: M72.2 Plantar fascial fibromatosis (principal); M76.71 Peroneal tendinitis, right leg | CPT/HCPCS: 99202 ==

== ENCOUNTER → 2022-11-03 13:39 | Outpatient (BNVA) | payer MEDICAID, SELFPAY | PROVIDERS: Visit Provider Surgery | DX: D12.6 Benign neoplasm of colon, unspecified (principal); Z12.11 Encounter for screening for malignant neoplasm of colon | CPT/HCPCS: 99202 ==

== ENCOUNTER 2022-11-20 14:00 | Outpatient (RCR) | payer MEDICAID, SELFPAY ==
--- NOTE | 2022-10-21 18:11 | MHC.PT.EP ---
[facility] [place] [facility] [place] [facility] [place] [facility] [address] [phone] F: [phone] F: [phone] F: [phone] F: [phone] Physical Therapy Plan of Care Date of Evaluation: Date of Surgery: Diagnosis: R plantar fascia fibromatosis R peroneal tendonitis Assessment: Patient is a vincentian speaking 52 y.o. female who is referred to PT by KANU Portillo with Dx of R plantar fascia fibromatosis and R peroneal tendonitis. Patient impairments include pain, limited ROM, weakness, antalgic gait. Patient current functional limitations are walking, stair use (ascending and descending), caring for grandchildren bending, prolonged standing, sleeping, house chores. Patient will benefit from skilled PT to address aforementioned impairments and functional limitations to meet established goals. Frequency and Duration: The patient will be seen 2x/week for 4 weeks Short Term Goals: 2 weeks Patient demonstrates consistency and independence with HEP to self manage symptoms. Patient presents with increaed R ankle DF 0 degrees to normalize heel to toe gait pattern for ambulation on flat surfaces. 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 Patient presents with incraesed R ankle DF 5 degrees to be able to ascend/descend steps reciprocally. Treatment Plan: Modalities to reduce pain, spasms and effusion. Manual therapy to restore motion and function. Therapeutic exercise to improve strength and flexibility. Neuromuscular re-education for posture and balance. Therapeutic activities to return to functional activities of daily living. Electronically signed by: Abhay Lorenz, PT, DPT Please sign and return to therapist. Thank you for your referral.
--- NOTE | 2022-11-20 17:46 | MHC.PT.DC ---
[facility] [place] [facility] [place] [facility] [place] [facility] [address] [phone] F: [phone] F: [phone] F: [phone] F: [phone] Physical Therapy Discharge Report Diagnosis: R plantar fascia fibromatosis R peroneal tendonitis Date of Surgery: Date of Evaluation: 10/21/22 Date of Discharge: 11/20/22 Treatments to Date: 7 Cancellations to Date: No Shows to Date: Discharge Status: Improved Function Independent with HEP Discharge Summary: Pt was giving bands for HEP, With Pics. Pt instructed to slowly increase amp distance. Strength increased as evidence by ability to complete exercises in therapy session. Patient is discharged from PT at this time. Electronically signed by: Abhay Lorenz, PT, DPT Please sign and return to therapist. Thank you for your referral.
== END 2022-11-20 17:47 | disposition home or self-care (01) ==
LOC: HO.PT 14:00
PROVIDERS: PCP Nurse Practitioner Primary Care; Visit Provider Physician Assistant
DX: M72.2 Plantar fascial fibromatosis (principal); M76.71 Peroneal tendinitis, right leg
CPT/HCPCS: 97035; 97110; 97140; 97161; 97530

== ENCOUNTER 2023-02-05 11:40 | Outpatient (REF) | payer MEDICAID, SELFPAY ==
--- NOTE | ~2023-02-05 | MM_ITS ---
EXAMINATION: MM SCREENING DIGITAL BREAST TOMOSYNTHESIS, BILATERAL CLINICAL INFORMATION: Screening. Asymptomatic. The lifetime risk of breast cancer based on the Tyrer-Cuzick Model is 6%. COMPARISON: Mammography: 01/24/2022, 10/29/2020, 10/24/2019, 09/27/2018 TECHNIQUE: Digital breast tomosynthesis is performed in both the craniocaudal and mediolateral oblique views along with computer-aided detection (CAD). Synthesized 2D images are generated from the tomosynthesis. FINDINGS: The breasts are heterogeneously dense, which may obscure small masses (ACR BI-RADS breast composition Category c). Breast tissue composition borders on extremely dense. Parenchymal pattern is similar to prior studies and there is no developing density or architectural abnormality. Cyst central 11:30 left breast is substantially decreased in size. There are no significant masses, abnormal calcifications, or other abnormalities. The axilla and skin contours are unremarkable. MM/MM tomosynthesis screening BI IMPRESSION: No mammographic evidence of malignancy. ASSESSMENT: BI-RADS 2: Benign RECOMMENDATION: Routine annual mammography screening. This patient's information was entered into a reminder system with a target due date for their next mammogram.
== END 2023-02-05 11:41 | disposition home or self-care (01) ==
LOC: HO.MAMMO 11:40
PROVIDERS: PCP Nurse Practitioner Primary Care; Visit Provider Nurse Practitioner Primary Care
DX: Z12.31 Encounter for screening mammogram for malignant neoplasm of breast (principal)
CPT/HCPCS: 77063; 77067

== ENCOUNTER 2023-03-23 14:53 | Outpatient (REF) | payer MEDICAID, SELFPAY ==
--- NOTE | ~2023-03-23 | XR_ITS ---
EXAMINATION: XR CERVICAL SPINE CLINICAL INFORMATION: Radicular neck pain. COMPARISON: None available. TECHNIQUE: 5 views of the cervical spine were obtained. FINDINGS: There is straightening of the normal cervical lordosis with normal spinal alignment. Mild disc space narrowing and marginal osteophyte formation is seen at C5-C6. Marginal osteophyte formation is most pronounced anteriorly. Mild bilateral neural foraminal narrowing is seen at this level. The facet joints are unremarkable. The spinous processes are intact. The odontoid process is intact. The soft tissues are unremarkable.. XR/XR cervical spine 4V IMPRESSION: 1. Straightening of the normal cervical lordosis may be secondary to positioning and/or muscle spasm. 2. C5-C6 mild degenerative disc disease and mild bilateral neural foraminal narrowing.
== END 2023-03-23 14:54 | disposition home or self-care (01) ==
LOC: HO.HHCX 14:53
PROVIDERS: Visit Provider Internal Medicine Geriatric Medicine
DX: M54.2 Cervicalgia (principal); M54.10 Radiculopathy, site unspecified
CPT/HCPCS: 72050

== ENCOUNTER 2023-04-03 15:06 | Outpatient (AMB) | payer MEDICAID, SELFPAY ==
--- NOTE | 2023-04-03 15:11 | MHC.OFFVIS ---
Intake Vital Signs 04/03/23 15:14 Height 5 ft 1 in Weight 163 lb 12.855 oz BMI 30.9 BP 118/78 Blood Pressure Location Lt brachial Position Sitting Pulse 76 Pulse Source Pulse Oximeter Intake Visit Reasons: Hypothyroidism Intake Note: Patient present today for Hypothyroidism. 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 Operator Language: Communications Editor Name: Family member josue Information Interpreted: non-clinical & clinical Accompanied by: Daughter Allergies No Known Allergies Allergy (Verified 04/03/23 15:15) Medication List - Last Reconciled 04/03/23 by Shay Cates MD bisacodyl (Dulcolax (bisacodyl)) 10 mg (2 x 5 mg) PO ONCE 1 day cholecalciferol (vitamin D3) 50 mcg PO DAILY cyanocobalamin (vitamin B-12) 1,000 mcg PO DAILY diphenhydramine HCl (Benadryl) 25 mg PO ONCE hydrocodone-acetaminophen 5-325 mg 1 tab PO Q4-6H PRN ibuprofen 600 mg PO Q8H PRN levothyroxine 150 mcg PO DAILY metoclopramide HCl (Reglan) 5 mg PO DAILY polyethylene glycol 3350 (Miralax) 238 grams PO ONCE 1 day HPI HPI Comments History of Present Illness Details 52 YO F with who is seen in consultation at the request of his PCP for Hyothyroidism. First diagnosed with Hypothyroidism since 16 yrs old with labs revealing []. Currently using levothyroxine 150 ug . On this dose for a few mos. Was on 125 ug prior . Denies - fatigue, +weight gain , -cold intolerance, +dry skin, +hair loss, +constipation. There is no hx of hyperlipidemia . Denies obstructive sx of goiter . Denies consuming any kelp or seaweed. Denies taking amiodarone. perimenopaual : Biotin: No Family history of thyroid disease: Mother and brother hypothyroidism Labs:TSH =116 on 12/17/22. However, patient states when she had a blood work done she was not taking the thyroid home consistently because of a misunderstanding with her provider [facility] Medical History (Updated 04/03/23 @ 15:18 by Shay Cates MD) Adult hypothyroidism Anxiety Colon cancer screening Depression Diffuse cystic mastopathy of both breasts Hypothyroidism Midline back pain Poor vision Tobacco abuse Vitamin B 12 deficiency Vitamin D deficiency Surgical History (Updated 04/03/23 @ 15:16 by Rosalinda Chow) History of carpal tunnel surgery Hx of tubal ligation Family History Mother Diabetes Leukemia Social History Alcohol intake: current Patient Tobacco Use Status: Former Tobacco user Tobacco use type: Cigarette Cigarettes Per Day: 3 Years Smoked: 20 Current occupational status: employed 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 Thyroid gland measure 15 gms . No nodules or tenderness palpated. There is no cervical adenopathy palpated. Lungs CTA. Heart S1, S2 Reg R/R -M/R/G. Abdominal exam benign. Skin exam reveals absence of dryness or thyroid dermopathy or vitiligo. Nail exam reveals absence of thyroid acropachy or oncholysis. Neurologic exam reveals 2+ reflexes . Muscle Strength is 5/5 proximally. There are no tremors in upper extremities. Assessment & Plan Assessment & Plan (1) Hypothyroidism: Code(s): E03.9 - Hypothyroidism, unspecified Plan: This is a 52-year-old female with history of hypothyroidism currently being treated with 150 mcg levothyroxine. She appears to be clinically euthyroid Plan is to recheck TSH and free T4 and adjust levothyroxine cor Orders: Orders Free T4 (Free Thyroxine) Today E03.9 - Hypothyroidism, unspecified Thyroid Stimulating Hormone Today E03.9 - Hypothyroidism, unspecified Coding Level of Care Code New Pt Level 4 (31038) Diagnoses Hypothyroidism E03.9
[2023-04-03 15:14] VITALS: BP 118/78; PULSE 76; BMI 30.9
== END 2023-04-03 15:45 | disposition home or self-care (01) ==
PROVIDERS: PCP Nurse Practitioner Primary Care; Visit Provider Internal Medicine Endocrinology, Diabetes & Metabolism
DX: E03.9 Hypothyroidism, unspecified (principal)
CPT/HCPCS: 99204

== ENCOUNTER 2023-04-03 15:06 | Outpatient (REF) | payer MEDICAID, SELFPAY ==
[2023-04-03 17:25] LABS: Free T4 (Free Thyroxine) 1.25 ng/dL (0.71-1.85); Thyroid Stimulating Hormone 0.08 uIU/mL (0.32-4.0)
== END 2023-04-03 15:07 | disposition home or self-care (01) ==
LOC: HO.LAB 15:06
PROVIDERS: PCP Nurse Practitioner Primary Care; Visit Provider Internal Medicine Endocrinology, Diabetes & Metabolism
DX: E03.9 Hypothyroidism, unspecified (principal)
CPT/HCPCS: 36415; 84439; 84443; 99202

== ENCOUNTER 2023-06-03 08:42 | Outpatient (REF) | payer MEDICAID, SELFPAY ==
--- NOTE | 2023-06-03 08:46 | EMG_ITS ---
Please see scanned EMG / Nerve Conduction Report. MTDD
== END 2023-06-03 08:43 | disposition home or self-care (01) ==
LOC: HO.NEURO 08:42
PROVIDERS: PCP Nurse Practitioner Primary Care; Visit Provider Internal Medicine Geriatric Medicine
DX: M54.2 Cervicalgia (principal); M54.10 Radiculopathy, site unspecified
CPT/HCPCS: 95885; 95910

== ENCOUNTER 2023-06-26 06:31 | Day surgery (SDC) | payer MEDICAID, SELFPAY ==
[2023-06-24 14:29] VITALS: BMI 32.7
--- NOTE | 2023-06-25 10:10 | HO.ANESPROP2 ---
Documented by User: Joan Plasencia NP 06/25/23 10:10 HPI - Anesthesia Eval Consult details Narrative: 52yo F for Colonoscopy, possible polypectomy PMFSH Active Problems Active Problems: All Active Problems (Updated 04/03/23 @ 15:18 by Shay Cates MD) Hypothyroidism (Acute) Colon cancer screening (Acute) Peroneal tendonitis of right lower leg (Acute) Plantar fasciitis of right foot (Acute) Pain of right calf (Acute) De Quervain's tenosynovitis, left (Acute) De Quervain's tenosynovitis, right (Acute) Carpal tunnel syndrome of left wrist (Acute) Carpal tunnel syndrome of right wrist (Acute) DAIANA positive (Acute) Arm pain (Acute) COVID-19 (Acute) Past Medical History Medical History (Updated 04/03/23 @ 15:18 by Shay Cates MD) Hypothyroidism Colon cancer screening Midline back pain Diffuse cystic mastopathy of both breasts Poor vision Depression Anxiety Tobacco abuse Vitamin B 12 deficiency Vitamin D deficiency Adult hypothyroidism Family History Family History Mother Diabetes Leukemia Surgical History Surgical History (Updated 04/03/23 @ 15:16 by Rosalinda Chow) History of carpal tunnel surgery Hx of tubal ligation Social History Social History Alcohol intake: current Alcohol intake frequency: holidays/special occasions only Patient Tobacco Use Status: Former Tobacco user Tobacco use type: Cigarette Cigarettes Per Day: 3 Years Smoked: 20 Are you DNR?: No Advance Directives: No Advance Directives Information Provided: Yes Recently lost weight without trying: No Nutrition Risks: No Nutritional Risk Current occupational status: employed 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 Allergies Allergy/AdvReac Type Severity Reaction Status Date / Time No Known Allergies Allergy Verified 04/03/23 15:15 Home Medications Medication Instructions Recorded Confirmed Last Taken Type cholecalciferol (vitamin D3) 50 50 mcg PO DAILY 01/10/21 11/03/22 Unknown History mcg (2,000 unit) capsule cyanocobalamin (vitamin B-12) 1,000 mcg PO DAILY 01/10/21 11/03/22 Unknown History 1,000 mcg capsule Exam Exam Date and Time: June 25, 2023 1010 Height,Weight and Vital Signs: Height 5 ft 1 in Weight 78.471 kg Assessment and Plan Assessment Anesthesia Assessment: Chart Reviewed Documented by User: Ravi Lewis MD 06/26/23 07:29 PMFSH Past Medical History Medical History (Updated 04/03/23 @ 15:18 by Shay Cates MD) Hypothyroidism Colon cancer screening Midline back pain Diffuse cystic mastopathy of both breasts Poor vision Depression Anxiety Tobacco abuse Vitamin B 12 deficiency Vitamin D deficiency Adult hypothyroidism Family History Family History Mother Diabetes Leukemia Family history of problems with anesthesia: No Surgical History Surgical History (Updated 04/03/23 @ 15:16 by Rosalinda Chow) History of carpal tunnel surgery Hx of tubal ligation History of Problems with Anesthesia: No Social History Social History Alcohol intake: current Alcohol intake frequency: holidays/special occasions only Patient Tobacco Use Status: Former Tobacco user Tobacco use type: Cigarette Cigarettes Per Day: 3 Years Smoked: 20 Are you DNR?: No Advance Directives: No Advance Directives Information Provided: Yes Recently lost weight without trying: No Nutrition Risks: No Nutritional Risk Current occupational status: employed 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 Allergies Allergy/AdvReac Type Severity Reaction Status Date / Time No Known Allergies Allergy Verified 04/03/23 15:15 Home Medications Medication Instructions Recorded Confirmed Last Taken Type cholecalciferol (vitamin D3) 50 50 mcg PO DAILY 01/10/21 11/03/22 Unknown History mcg (2,000 unit) capsule cyanocobalamin (vitamin B-12) 1,000 mcg PO DAILY 01/10/21 11/03/22 Unknown History 1,000 mcg capsule Exam Airway Mallampati Class: I TM Dist: <=3cm Neck ROM: Full Loose/Missing/Broken Teeth: Yes Heart: ok Lungs: ok Assessment and Plan Assessment Anesthesia Assessment: Anesthesia Plan Discussed Final Anesthetic Review Family History of Problems with Anesthesia: No History of Problems with Anesthesia: No NPO: Yes ASA Class: II Final Preanesthetic Review: No Changes in Pt Med Stat, Meds/Allgs Chart Reviewed, Consent Obtained/Reviewed and Anes Risks/Benef Reviewed Patient Risk: Low Procedure Risk: Low Anesthetic Plan Anesthetic Plan: MAC: and Agree w/ Assess. and Plan Disposition: Standard PACU
[2023-06-26 06:33] VITALS: BP 123/78; PULSE 68; RESP 18; TEMP 36.1; O2SAT 100
[2023-06-26] MEDS: Lactated Ringers 1,000 ML 100 ML IVCONT (06:57)
--- NOTE | 2023-06-26 07:30 | P.HPSUR_ITS ---
Pre-Procedural Eval Section A Date of Service: 06/26/23 Section B Chief Complaint: Encounter for screening for malignant neoplasm of Details of Present Illness: Had poor bowel prep in 2019, short interval colonoscopy therefore recommended, no GI complaints Relevant Family History (Specify if Yes): No Relevant Social History: None Present Medications: see Short Stay Collaborative assessment Medical History: Significant History ( thyroid disease, DAIANA positive) History of Previous Operations: No relevant previous surgery Allergies: Allergies Allergy/AdvReac Type Severity Reaction Status Date / Time No Known Allergies Allergy Verified 04/03/23 15:15 Review of Systems Sugical H&P ROS: Negative: Constitution, Cardiovascular, Respiratory, Neurological, Psychiatric, Hem-Onc, Allergic/Immunologic, Gastrointestinal, Genitourinary, Musculoskeletal, Integumentary, Endocrine and Eyes/Ears/Nose/Throat Exam Surgical H&P Exam: Normal: HEENT, Normal: Heart, Normal: Lungs, Normal: Extremi ties, Normal: Abdomen, Normal: Skin and Normal: Neurological Plan Diagnosis/Plan: Unchanged I have reviewed the history and physical and performed a pertinent physical examination on my patient. No changes have occurred unless specified. Time Spent With Patient Time: Total time managing care of this patient today ____ minutes.
--- NOTE | 2023-06-26 08:04 | W.PM.OPN ---
Operative Note Operative Note Date of Service: 06/26/23 Narrative: Preop diagnosis: Colon cancer screening Postop diagnosis: 1. Two small polyps, about 2-3 mm each at level 20 cm 2. Internal external hemorrhoids, large Procedure: Colonoscopy with polypectomy using cold forceps x2 Surgeon: Jesu Pa MD The patient is a 52-year-old female who had a colonoscopy in 2019 with suboptimal bowel prep. I had recommended a interval follow-up colonoscopy. She understood the technique of the procedure as well to risks, benefits, and alternatives The patient was brought to the operating room and placed in left lateral decubitus position under monitored anesthesia care. A surgical time-out was done. A full digital rectal exam was done and this did not reveal any significant anal lesions. The tip of the Olympus colonoscope was gently introduced through the anal orifice advanced with insufflation all the way to the cecum. The cecum was intubated. The cecum was identified by visualization of the ileocecal valve as well as the appendiceal orifice. The cecal mucosa was unremarkable. The scope was gradually withdrawn with careful examination of the entire colonic mucosa being done with scope withdrawal. The patient had adequate bowel prep so it was unlikely that any lesion may have been missed. There was note of 2 small polyps, each about 2-3 mm all 20 cm adjacent to each other. These were removed using multiple bites of cold forceps. The rectum was reached and there were no lesions seen. There were large internal and external hemorrhoids in the anal canal. The scope was then withdrawn completely with desufflation The patient tolerated the procedure well. There were no immediate complications. Depending on the path report, her next colonoscopy may be in the next 10 years.
[2023-06-26 08:10] VITALS: BP 107/59; PULSE 71; RESP 20; TEMP 36.6; O2SAT 97
[2023-06-26 08:25] VITALS: BP 109/66; PULSE 60; RESP 18; TEMP 36.1; O2SAT 99
== END 2023-06-26 09:00 | disposition home or self-care (01) ==
PROVIDERS: PCP Nurse Practitioner Primary Care; Visit Provider Surgery
PROC: 0DJD8ZZ Inspection of Lower Intestinal Tract, Via Natural or Artificial Opening Endoscopic (ICD-10-PCS; CPT 45378; principal; 2023-06-26 07:30)
DX: Z12.11 Encounter for screening for malignant neoplasm of colon (principal); Z86.010 Personal history of colon polyps; K63.5 Polyp of colon; K64.8 Other hemorrhoids; K64.4 Residual hemorrhoidal skin tags; E03.9 Hypothyroidism, unspecified; E53.8 Deficiency of other specified B group vitamins; E55.9 Vitamin D deficiency, unspecified; N60.12 Diffuse cystic mastopathy of left breast; N60.11 Diffuse cystic mastopathy of right breast; F41.9 Anxiety disorder, unspecified; Z79.1 Long term (current) use of non-steroidal anti-inflammatories (NSAID); Z79.899 Other long term (current) drug therapy; Z87.891 Personal history of nicotine dependence
CPT/HCPCS: 45380; 88305; J2704

== ENCOUNTER → 2023-06-26 06:31 | Outpatient (BNV) | payer MEDICAID, SELFPAY | PROVIDERS: PCP Nurse Practitioner Primary Care; Visit Provider Surgery | DX: Z12.11 Encounter for screening for malignant neoplasm of colon (principal); K63.5 Polyp of colon; K64.8 Other hemorrhoids | CPT/HCPCS: 45380 ==

== ENCOUNTER 2023-07-08 14:53 | Outpatient (AMB) | payer MEDICAID, SELFPAY ==
[2023-07-08 14:58] VITALS: BP 138/84; PULSE 82; BMI 30.1
--- NOTE | 2023-07-08 14:58 | A.OFFVIS_ITS ---
Intake Vital Signs 07/08/23 14:58 Height 5 ft 1 in Weight 159 lb 2 oz BMI 30.1 BP 138/84 Blood Pressure Location Lt brachial Position Sitting Pulse 82 Intake Visit Reasons: S/p colonoscopy Intake Note: Patient is seen in office for post op assessment post colonoscopy. Patient c/o: denies any concerns, here for results Prison Classification Counselor Required: No Accompanied by: Family/Other Allergies No Known Allergies Allergy (Verified 07/08/23 14:59) HPI S/p colonoscopy HPI Details She had undergone colonoscopy for screening last June 26, 2023. She tolerated the procedure well. She currently denies significant complaints. [facility] Medical History (Updated 07/17/23 @ 15:12 by Jesu Pa MD) Hyperplastic colon polyp Hypothyroidism Colon cancer screening Midline back pain Diffuse cystic mastopathy of both breasts Poor vision Depression Anxiety Tobacco abuse Vitamin B 12 deficiency Vitamin D deficiency Adult hypothyroidism Surgical History History of carpal tunnel surgery Hx of tubal ligation Family History Mother Diabetes Leukemia Social History Alcohol intake: current Alcohol intake frequency: holidays/special occasions only Patient Tobacco Use Status: Former Tobacco user Tobacco use type: Cigarette Cigarettes Per Day: 3 Years Smoked: 20 Current occupational status: employed 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 Review of Systems Const Denies chills and Denies fever(s) Card Denies chest pain, Denies dyspnea and Denies dyspnea on exertion Resp Denies cough, Denies dyspnea and Denies dyspnea on exertion GI Denies hematochezia and Denies change in bowel habits Denies hematuria Musc Denies back pain and Denies limited range of motion Neuro Denies focal weakness and Denies convulsions Psych Denies depression and Denies mood swings Physical Exam Vital Signs: Last Vital Signs Pulse 82 07/08/23 14:58 BP 138/84 07/08/23 14:58 BMI result Body Mass Index 30.1 Const General: comfortable and no acute distress Resp Effort & Inspection: normal respiratory effort GI Palpation (GI): Soft to palpation, not firm and nontender Assessment & Plan Assessment & Plan (1) Colon cancer screening: Code(s): Z12.11 - Encounter for screening for malignant neoplasm of colon Plan: Status post colonoscopy last June 26, 2023. She is doing well post colonoscopy. I removed 2 small polyps which were hyperplastic. I explained to her the benign nature of this pathology. She falls at average risk for colon cancer so her next colonoscopy may be in the next 10 years. She understands the plan well. (2) Hyperplastic colon polyp: Code(s): K63.5 - Polyp of colon Plan: 2 small polyps were removed and these were hyperplastic. She understands the benign nature of this pathology. Coding Level of Care Code Est Pt Level 2 (97346) Diagnoses Colon cancer screening Z12.11 Hyperplastic colon polyp K63.5
== END 2023-07-08 15:04 | disposition home or self-care (01) ==
PROVIDERS: PCP Nurse Practitioner Primary Care; Referring Provider Nurse Practitioner Primary Care; Visit Provider Surgery
DX: Z12.11 Encounter for screening for malignant neoplasm of colon (principal); K63.5 Polyp of colon
CPT/HCPCS: 99212

== ENCOUNTER → 2023-07-08 14:53 | Outpatient (BNVA) | payer MEDICAID, SELFPAY | PROVIDERS: PCP Nurse Practitioner Primary Care; Visit Provider Surgery | DX: K63.5 Polyp of colon (principal); Z09 Encounter for follow-up examination after completed treatment for conditions other than malignant neoplasm | CPT/HCPCS: 99212 ==

== ENCOUNTER 2023-11-04 10:14 | Outpatient (REF) | payer MEDICAID, SELFPAY ==
[2023-11-04 11:54] LABS: Free T4 (Free Thyroxine) 1.66 ng/dL (0.71-1.85); Thyroid Stimulating Hormone 0.02 uIU/mL (0.32-4.0)
== END 2023-11-04 10:15 | disposition home or self-care (01) ==
LOC: HO.LAB 10:14
PROVIDERS: PCP Nurse Practitioner Primary Care; Visit Provider Internal Medicine Endocrinology, Diabetes & Metabolism
DX: E03.9 Hypothyroidism, unspecified (principal)
CPT/HCPCS: 36415; 84439; 84443

== ENCOUNTER 2023-11-10 15:03 | Outpatient (AMB) | payer MEDICAID, SELFPAY ==
--- NOTE | 2023-11-10 15:57 | A.OFFVIS_ITS ---
Intake Vital Signs 11/10/23 15:58 Height 5 ft 1 in Weight 159 lb BMI 30.0 Intake Visit Reasons: O/V- LT HAND PAIN s/p CTR&deq 11/25/21 Intake Note: Arianna 53 yr old female presents today for her left hand pain s/p CTR & dequervains from 11/25/[address] Batista. Patient states -. She is also s/p Rt hand CTR & dequervain with Dr. Batista on 06/12/22. States she is having constant hand pain especially in her palmar aspect of hand. Also mentioned she has numbness radiating to her arm. Allergies No Known Allergies Allergy (Verified 11/10/23 16:15) HPI O/V- LT HAND PAIN s/p CTR&deq 11/25/21 HPI Details Arianna is a 53 year old right hand dominant Yoruba speaking woman who presents with complaints of left hand pain. She is seen today with her daughter who acted as a greeter. She complains of pain in all digits of her left hand, along with the dorsal aspect of her hand & wrist, which radiates up the dorsum of her forearm and into her shoulder. She says this is accompanied by a tingling sensation like crawling ants . She also complains of similar pain in her right side, but says this is primarily in her wrist. She says her sensation is normal in her right side. She says she does not work and primarily cares for her 3 grandchildren at home. She has been seen by Rheumatology in the past for multiple pain complaints and a positive DAIANA. She was last seen at [place] for this on 02/06/21. Her daughter says she is supposed to be following up with Rheumatology sometime soon. She has a hx of a left carpal tunnel release & 1st dorsal compartment release, DOS: 11/25/21, with good improvement in her symptoms post-operatively. She has a hx of right carpal tunnel release & 1st dorsal compartment release, DOS: 06/12/22, with good improvement in her symptoms post-operatively. [facility] Medical History (Updated 11/10/23 @ 16:[address]) Hyperplastic colon polyp Hypothyroidism Colon cancer screening Midline back pain Diffuse cystic mastopathy of both breasts Poor vision Depression Anxiety Tobacco abuse Vitamin B 12 deficiency Vitamin D deficiency Adult hypothyroidism Surgical History History of carpal tunnel surgery Hx of tubal ligation Family History Mother Diabetes Leukemia Social History Alcohol intake: current Alcohol intake frequency: holidays/special occasions only Patient Tobacco Use Status: Former Tobacco user Tobacco use type: Cigarette Cigarettes Per Day: 3 Years Smoked: 20 Current occupational status: employed 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 Review of Systems Const All systems reviewed & are unremarkable except as noted in HPI and below Physical Exam Vital Signs: BMI result Body Mass Index 30.0 Const General: no acute distress and alert Orientation/consciousness: patient oriented x3 Neuro General: patient oriented x3 Extrem Other: Evaluation of Bilateral Upper Extremity: The patient is alert, oriented, and in no acute distress Neuro: Median, Ulnar, Radial nerves motor and sensory intact and sensation is normal to the tips of all digits Vascular: Cap refill brisk ROM: She can make a fist and extend all her digits No locking or catching No tenderness over the 1st dorsal compartments bilaterally. All bilateral carpal tunnel and 1st dorsal compartment incisions are well healed and nontender. She demonstrates pain in all digits of her left hand, along with the dorsal aspect of her hand & wrist, which radiates up the dorsum of her forearm and into her shoulder. She says this is accompanied by a tingling sensation like crawling ants on the dorsum of her forearm extending up to her shoulder. She has no swelling or erythema. She has smooth and full active range of motion of the fingers the wrist and elbow.. Psych Appearance: grossly normal Affect: normal affect Attitude: cooperative Assessment & Plan Assessment & Plan (1) Left hand pain: Code(s): M79.642 - Pain in left hand (2) Left arm pain: Code(s): M79.602 - Pain in left arm Plan Assessment and plan: 1. Left dorsal hand & arm pain Generalized, including fingers, hand, wrist & forearm dorsally, and into her shoulder No area of focal tenderness I educated her about this condition The etiology is unclear. No operative intervention or injections are indicated. She may benefit from Ot hand therapy but I think she would benefit from seeing Rheumatology for this first. She is scheduled to follow up with Rheumatology in the next few months. If she sees Rheumatology and decides she e would like to try OT hand therapy for stretching, strengthening, and improving overall function she can contact us and we will make the referral. She can follow up prn 2. Right carpal tunnel syndrome, S/P release DOS: 06/12/22 With good resolution of her symptoms 3. Right de Quervain tenosynovitis, S/P release DOS: 06/12/22 With good resolution of her symptoms 4. Left carpal tunnel syndrome, S/P release DOS: 11/25/21 With good resolution of her symptoms 5. Left de Quervain tenosynovitis, S/P release DOS: 11/25/21 With good resolution of her symptoms Scribed for Joya Batista MD by Rd Artis, medical pathologist, on 11/10/23 at 4:40 PM, EST. Coding Level of Care Code Est Pt Level 3 (31454) Diagnoses Left hand pain M79.642 Left arm pain M79.602
== END 2023-11-10 16:38 | disposition home or self-care (01) ==
PROVIDERS: PCP Nurse Practitioner Primary Care; Referring Provider Nurse Practitioner Primary Care; Visit Provider Orthopaedic Surgery
DX: M79.642 Pain in left hand (principal); M79.602 Pain in left arm
CPT/HCPCS: 99213

== ENCOUNTER → 2023-11-10 15:03 | Outpatient (BNVA) | payer MEDICAID, SELFPAY | PROVIDERS: PCP Nurse Practitioner Primary Care; Visit Provider Orthopaedic Surgery | DX: M79.642 Pain in left hand (principal); M79.602 Pain in left arm | CPT/HCPCS: 99212 ==

== ENCOUNTER 2023-11-11 15:53 | Outpatient (AMB) | payer MEDICAID, SELFPAY ==
[2023-11-11 15:56] VITALS: BP 140/74; PULSE 73; BMI 30.2
--- NOTE | 2023-11-11 15:56 | A.OFFVIS_ITS ---
Intake Vital Signs 11/11/23 15:56 Height 5 ft 1 in Weight 159 lb 9.835 oz BMI 30.2 BP 140/74 H Blood Pressure Location Lt brachial Position Sitting Pulse 73 Pulse Source Pulse Oximeter Intake Visit Reasons: f/u hypothyroidism-confirmed Intake Note: Patient present today for Hypothyroidism follow up visit. Electrical Instrument Repairer Required: Yes Electrical Instrument Repairer Language: Water Safety Teacher Name: Mary medical staff Information Interpreted: non-clinical & clinical Accompanied by: Self / Same As Patient Allergies No Known Allergies Allergy (Verified 11/11/23 16:00) Medication List - Last Reconciled 11/11/23 by Shay Cates MD bisacodyl (Dulcolax (bisacodyl)) 10 mg (2 x 5 mg) PO ONCE 1 day cholecalciferol (vitamin D3) 50 mcg PO DAILY cyanocobalamin (vitamin B-12) 1,000 mcg PO DAILY diphenhydramine HCl (Benadryl) 25 mg PO ONCE ibuprofen 600 mg PO Q8H PRN levothyroxine 100 mcg PO DAILY metoclopramide HCl (Reglan) 5 mg PO DAILY polyethylene glycol 3350 (Miralax) 238 grams PO ONCE 1 day HPI HPI Comments History of Present Illness Details 53 YO F with who is seen in consultatio n at the request of his PCP for Hyothyroidism. First diagnosed with Hypothyroidism since 16 yrs old with labs revealing []. Currently using levothyroxine 125 ug . On this dose for a few mos. Was on 125 ug prior . Denies - fatigue, +weight gain , -cold intolerance, +dry skin, +hair loss, +constipation. There is no hx of hyperlipidemia . Denies obstructive sx of goiter . Denies consuming any kelp or seaweed. Denies taking amiodarone. perimenopaual : Biotin: No Family history of thyroid disease: Mother and brother hypothyroidism Labs:TSH =116 on 12/17/22. However, patient states when she had a blood work done she was not taking the thyroid home consistently because of a misunderstanding with her provider [facility] Medical History (Updated 11/10/23 @ 16:[address]) Hyperplastic colon polyp Hypothyroidism Colon cancer screening Midline back pain Diffuse cystic mastopathy of both breasts Poor vision Depression Anxiety Tobacco abuse Vitamin B 12 deficiency Vitamin D deficiency Adult hypothyroidism Surgical History History of carpal tunnel surgery Hx of tubal ligation Family History Mother Diabetes Leukemia Social History Alcohol intake: current Alcohol intake frequency: holidays/special occasions only Patient Tobacco Use Status: Former Tobacco user Tobacco use type: Cigarette Cigarettes Per Day: 3 Years Smoked: 20 Current occupational status: employed 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 Thyroid gland measure 15 gms . No nodules or tenderness palpated. There is no cervical adenopathy palpated. Lungs CTA. Heart S1, S2 Reg R/R -M/R/G. Abdominal exam benign. Skin exam reveals absence of dryness or thyroid dermopathy or vitiligo. Nail exam reveals absence of thyroid acropachy or oncholysis. Neurologic exam reveals 2+ reflexes . Muscle Strength is 5/5 proximally. There are no tremors in upper extremities. Assessment & Plan Assessment & Plan (1) Hypothyroidism: Code(s): E03.9 - Hypothyroidism, unspecified Plan: This is a 52-year-old female with history of hypothyroidism currently being treated with 125 mcg levothyroxine. She appears to be clinically euthyroid but has a suppressed TSH Plan is to decrease levothyroxine to 100 mcg and recheck TSH and free T4 in 6 weeks and adjust levothyroxine accordingly Orders: Orders Free T4 (Free Thyroxine) 6 Weeks E03.9 - Hypothyroidism, unspecified Thyroid Stimulating Hormone 6 Weeks E03.9 - Hypothyroidism, unspecified Medications: New levothyroxine 100 mcg PO DAILY 30 tabs 5RF Discontinued levothyroxine Discontinued Reason: Doctor's Order 125 mcg PO DAILY 30 tabs 4RF Coding Level of Care Code Tele Est Pt Level 3 (60572) Diagnoses Hypothyroidism E03.9
== END 2023-11-11 16:10 | disposition home or self-care (01) ==
PROVIDERS: PCP Nurse Practitioner Primary Care; Visit Provider Internal Medicine Endocrinology, Diabetes & Metabolism
DX: E03.9 Hypothyroidism, unspecified (principal)
CPT/HCPCS: 99213

== ENCOUNTER → 2023-11-11 15:53 | Outpatient (BNVA) | payer MEDICAID, SELFPAY | PROVIDERS: PCP Nurse Practitioner Primary Care; Visit Provider Internal Medicine Endocrinology, Diabetes & Metabolism | DX: E03.9 Hypothyroidism, unspecified (principal) | CPT/HCPCS: 99212 ==

== ENCOUNTER 2024-01-21 | Outpatient (REF) | payer MEDICAID, SELFPAY | END 2024-01-21 00:01 | disposition home or self-care (01) | LOC: HO.HHCLNP | PROVIDERS: Visit Provider Nurse Practitioner Primary Care | DX: R30.0 Dysuria (principal) | CPT/HCPCS: 87086 ==

== ENCOUNTER 2024-01-22 16:16 | Outpatient (REF) | payer MEDICAID, SELFPAY | END 2024-01-22 16:17 | disposition home or self-care (01) | LOC: HO.HHCLNP 16:16 | PROVIDERS: Visit Provider Nurse Practitioner Primary Care | DX: Z13.89 Encounter for screening for other disorder (principal) ==

== ENCOUNTER 2024-01-27 11:36 | Outpatient (REF) | payer MEDICAID, SELFPAY ==
[2024-01-27 12:56] LABS: Thyroid Stimulating Hormone 11.15 uIU/mL (0.32-4.0)
[2024-01-27 13:08] LABS: Vitamin B12 345 pg/mL (200-900)
== END 2024-01-27 11:37 | disposition home or self-care (01) ==
LOC: HO.LAB 11:36
PROVIDERS: PCP Nurse Practitioner Primary Care; Visit Provider Nurse Practitioner Primary Care
DX: E03.9 Hypothyroidism, unspecified (principal)
CPT/HCPCS: 36415; 82550; 82607; 82746; 84443

== ENCOUNTER 2024-02-08 14:12 | Outpatient (REF) | payer MEDICAID, SELFPAY | END 2024-02-08 14:13 | disposition home or self-care (01) | LOC: HO.MAMMO 14:12 | PROVIDERS: PCP Nurse Practitioner Primary Care; Visit Provider Nurse Practitioner Primary Care | DX: Z12.31 Encounter for screening mammogram for malignant neoplasm of breast (principal) | CPT/HCPCS: 77063; 77067 ==

== ENCOUNTER → 2024-02-08 14:30 | Outpatient (BNV) | payer MEDICAID, SELFPAY | PROVIDERS: PCP Nurse Practitioner Primary Care; Visit Provider Radiology Diagnostic Radiology | DX: Z12.31 Encounter for screening mammogram for malignant neoplasm of breast (principal) | CPT/HCPCS: 77063; 77067 ==

== ENCOUNTER 2024-04-12 12:58 | Outpatient (AMB) | payer MEDICAID, SELFPAY ==
--- NOTE | 2024-04-12 13:40 | MHC.OFFVIS ---
Vital Signs 04/12/24 13:43 Height 5 ft 1 in Weight 153 lb 3.54 oz BMI 28.9 BP 132/88 Blood Pressure Location Rt brachial Position Sitting Pulse 68 Pulse Source Pulse Oximeter Intake Visit Reasons: f/u hypothyroidism/CONFIRMED Intake Note: Patient present today for Hypothyroidism follow up. Change Management Administrator Required: Yes Change Management Administrator Language: Per Diem Clerk Services: Change Management Administrator Present Change Management Administrator Name: SERAFIN Burrows Information Interpreted: non-clinical & clinical Accompanied by: Grand Child Allergies No Known Allergies Allergy (Verified 04/12/24 13:44) HPI Comments Details: 53 YO F with who is seen in consultation at the request of his PCP for Hyothyroidism. First diagnosed with Hypothyroidism since 16 yrs old with labs revealing []. Currently using levothyroxine 100 ug . On this dose for a 3 mos. . Claims compliance Denies - fatigue, +weight gain , -cold intolerance, +dry skin, +hair loss, +constipation. There is no hx of hyperlipidemia . Denies obstructive sx of goiter . Denies consuming any kelp or seaweed. Denies taking amiodarone. perimenopaual : Biotin: No Family history of thyroid disease: Mother and brother hypothyroidism Labs: [facility] Medical History (Updated 11/10/23 @ 16:[address]is) Hyperplastic colon polyp Hypothyroidism Colon cancer screening Midline back pain Diffuse cystic mastopathy of both breasts Poor vision Depression Anxiety Tobacco abuse Vitamin B 12 deficiency Vitamin D deficiency Adult hypothyroidism Surgical History History of carpal tunnel surgery Hx of tubal ligation Family History Mother Diabetes Leukemia Social History Alcohol intake: current Alcohol intake frequency: holidays/special occasions only Patient Tobacco Use Status: Former Tobacco user Tobacco use type: Cigarette Cigarettes Per Day: 3 Years Smoked: 20 Current occupational status: employed 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 Thyroid gland measure 15 gms . No nodules or tenderness palpated. There is no cervical adenopathy palpated. Lungs CTA. Heart S1, S2 Reg R/R -M/R/G. Abdominal exam benign. Skin exam reveals absence of dryness or thyroid dermopathy or vitiligo. Nail exam reveals absence of thyroid acropachy or oncholysis. Neurologic exam reveals 2+ reflexes . Muscle Strength is 5/5 proximally. There are no tremors in upper extremities. Assessment & Plan Assessment & Plan (1) Hypothyroidism: Code(s): E03.9 - Hypothyroidism, unspecified Category: Medical Plan: This is a 52-year-old female with history of hypothyroidism currently being treated with 100 mcg levothyroxine. She appears to be clinically euthyroid but has aelevated TSH Plan is to increase levothyroxine to mcg and recheck TSH and free T4 in 6 weeks and adjust levothyroxine accordingly Orders: Orders Free T4 (Free Thyroxine) 6 Weeks E03.9 - Hypothyroidism, unspecified Thyroid Stimulating Hormone 6 Weeks E03.9 - Hypothyroidism, unspecified Medications: New levothyroxine 112 mcg PO DAILY 30 tabs 5RF Discontinued levothyroxine Discontinued Reason: Doctor's Order 100 mcg PO DAILY 30 tabs 5RF Coding Level of Care Code Est Pt Level 3 (93552) Diagnoses Hypothyroidism E03.9
[2024-04-12 13:43] VITALS: BP 132/88; PULSE 68; BMI 28.9
== END 2024-04-12 14:25 | disposition home or self-care (01) ==
PROVIDERS: PCP Nurse Practitioner Primary Care; Visit Provider Internal Medicine Endocrinology, Diabetes & Metabolism
DX: E03.9 Hypothyroidism, unspecified (principal)
CPT/HCPCS: 99213

== ENCOUNTER → 2024-04-12 12:58 | Outpatient (BNVA) | payer MEDICAID, SELFPAY | PROVIDERS: PCP Nurse Practitioner Primary Care; Visit Provider Internal Medicine Endocrinology, Diabetes & Metabolism | DX: E03.9 Hypothyroidism, unspecified (principal); Z79.899 Other long term (current) drug therapy | CPT/HCPCS: 99212 ==

== ENCOUNTER 2024-07-15 14:30 | Outpatient (REF) | payer MEDICAID, SELFPAY ==
[2024-07-15 15:57] LABS: Free T4 (Free Thyroxine) 1.05 ng/dL (0.71-1.85); Thyroid Stimulating Hormone 9.97 uIU/mL (0.32-4.0)
== END 2024-07-15 14:31 | disposition home or self-care (01) ==
LOC: HO.HMGCLDS 14:30
PROVIDERS: PCP Nurse Practitioner Primary Care; Visit Provider Internal Medicine Endocrinology, Diabetes & Metabolism
DX: E03.9 Hypothyroidism, unspecified (principal)
CPT/HCPCS: 36415; 84439; 84443

== ENCOUNTER 2024-07-18 10:23 | Outpatient (AMB) | payer MEDICAID, SELFPAY ==
--- NOTE | 2024-07-18 10:30 | MHC.OFFVIS ---
Vital Signs 07/18/24 10:40 Height 5 ft 1 in Weight 154 lb 15.759 oz BMI 29.3 BP 128/78 Blood Pressure Location Rt brachial Position Sitting Pulse 77 Pulse Source Pulse Oximeter Intake Visit Reasons: Hypothyroidism (Adult) Intake Note: Patient present today for Hypothyroidism follow up. Tape Folding Machine Operator Required: Yes Tape Folding Machine Operator Language: Secretary To The Vice President Services: Tape Folding Machine Operator Present Tape Folding Machine Operator Name: [id number] Information Interpreted: non-clinical & clinical Accompanied by: Self / Same As Patient Allergies No Known Allergies Allergy (Verified 07/18/24 10:40) Medication List - Last Reconciled 07/18/24 by Shay Cates MD bisacodyl (Dulcolax (bisacodyl)) 10 mg (2 x 5 mg) PO ONCE 1 day cholecalciferol (vitamin D3) 50 mcg PO DAILY cyanocobalamin (vitamin B-12) 1,000 mcg PO DAILY diphenhydramine HCl (Benadryl) 25 mg PO ONCE ibuprofen 600 mg PO Q8H PRN levothyroxine 125 mcg PO DAILY metoclopramide HCl (Reglan) 5 mg PO DAILY polyethylene glycol 3350 (Miralax) 238 grams PO ONCE 1 day HPI Comments Details: 54 YO F with who is seen in consultation at the request of his PCP for Hyothyroidism. First diagnosed with Hypothyroidism since 16 yrs old with labs revealing []. Currently using levothyroxine 125 ug . On this dose for a mo . Claims compliance Denies - fatigue, +weight gain , -cold intolerance, +dry skin, +hair loss, +constipation. There is no hx of hyperlipidemia . Denies obstructive sx of goiter . Denies consuming any kelp or seaweed. Denies taking amiodarone. perimenopaual : Biotin: No Family history of thyroid disease: Mother and brother hypothyroidism Labs: [facility] Medical History (Updated 11/10/23 @ 16:[address]) Hyperplastic colon polyp Hypothyroidism Colon cancer screening Midline back pain Diffuse cystic mastopathy of both breasts Poor vision Depression Anxiety Tobacco abuse Vitamin B 12 deficiency Vitamin D deficiency Adult hypothyroidism Surgical History History of carpal tunnel surgery Hx of tubal ligation Family History Mother Diabetes Leukemia Social History Alcohol intake: current Alcohol intake frequency: holidays/special occasions only Patient Tobacco Use Status: Former Tobacco user Tobacco use type: Cigarette Cigarettes Per Day: 3 Years Smoked: 20 Current occupational status: employed 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 Thyroid gland measure 15 gms . No nodules or tenderness palpated. There is no cervical adenopathy palpated. Lungs CTA. Heart S1, S2 Reg R/R -M/R/G. Abdominal exam benign. Skin exam reveals absence of dryness or thyroid dermopathy or vitiligo. Nail exam reveals absence of thyroid acropachy or oncholysis. Neurologic exam reveals 2+ reflexes . Muscle Strength is 5/5 proximally. There are no tremors in upper extremities. Assessment & Plan Assessment & Plan (1) Hypothyroidism: Code(s): E03.9 - Hypothyroidism, unspecified Category: Medical Plan: This is a 52-year-old female with history of hypothyroidism currently being treated with 250 mcg levothyroxine. She appears to be clinically euthyroid but has aelevated TSH Plan is to recheck TSH and free T4 in 6 weeks once the patient has consistently been in the 125 mcg and adjust levothyroxine accordingly Coding Level of Care Code Est Pt Level 3 (10264) Diagnoses Hypothyroidism E03.9
[2024-07-18 10:40] VITALS: BP 128/78; PULSE 77; BMI 29.3
== END 2024-07-18 11:43 | disposition home or self-care (01) ==
PROVIDERS: PCP Nurse Practitioner Primary Care; Visit Provider Internal Medicine Endocrinology, Diabetes & Metabolism
DX: E03.9 Hypothyroidism, unspecified (principal)
CPT/HCPCS: 99213

== ENCOUNTER → 2024-07-18 10:23 | Outpatient (BNVA) | payer MEDICAID, SELFPAY | PROVIDERS: PCP Nurse Practitioner Primary Care; Visit Provider Internal Medicine Endocrinology, Diabetes & Metabolism | DX: E03.9 Hypothyroidism, unspecified (principal) | CPT/HCPCS: 99212 ==

== ENCOUNTER 2024-08-01 14:40 | Emergency (ER) | payer MEDICAID, SELFPAY ==
--- NOTE | ~2024-08-01 | XR_ITS ---
EXAMINATION: XR SHOULDER, LEFT CLINICAL INFORMATION: pain COMPARISON: None available. TECHNIQUE: AP external rotation, Grashey, scapular Y, and axillary views of the left shoulder. FINDINGS: No fracture, dislocation, or suspicious bone lesion. Normal bone mineralization. Normal alignment. Very mild degenerative arthritis of the glenohumeral joint, which is normally aligned. Mild arthritis in the AC joint, which is normally aligned. There is predominantly superior surface spurring with no undersurface spurring. There is a neutral lateral acromion. The subacromial space is preserved. Remainder the bony and soft tissue structures appear normal. XR/XR shoulder LT min 2V IMPRESSION: 1. No acute findings left shoulder. 2. Very mild degenerative arthritis glenohumeral joint and AC joint. Electronically signed by: Teofilo Barillas MD 08/01/2024 04:35 PM URSULA FLORES
--- NOTE | ~2024-08-01 | XR_ITS ---
EXAMINATION: XR CERVICAL SPINE CLINICAL INFORMATION: neck pain COMPARISON: Cervical spine March 23, 2023 TECHNIQUE: 3 views of the cervical spine were obtained. FINDINGS: No acute abnormality. No fracture. No subluxation. No prevertebral soft tissue swelling. Degenerative disc height narrowing and vertebral endplate spurs anteriorly C5-C6. The remainder of the disc heights are normal. Facet joints are normal. XR/XR cervical spine 3V IMPRESSION: 1. No acute abnormality. 2. Degenerative disc disease C5-C6. Electronically signed by: Hari Espinal MD 08/01/2024 04:59 PM EST
[2024-08-01 14:48] VITALS: BP 138/85; PULSE 73; RESP 16; TEMP 36; O2SAT 98; BMI 28.3
--- NOTE | 2024-08-01 14:49 | ED_ITS ---
HPI - Extremity Injury (Upper) General Chief Complaint: Extremity Injury, Upper Stated Complaint: l shoulder pain Time Seen by Provider: 08/01/24 17:17 Source: patient Mode of arrival: ambulatory Limitations: no limitations History of Present Illness ED Provider: Yaakov Schrader PA-C HPI narrative: 54-year-old female who was healthy presents to the ED for left posterior neck radiating down left arm for the past 2 months that is worse on movement. Patient denies any chest pain or shortness of breath Related Data Home Medications ?Medication ?Instructions ?Recorded ?Confirmed cholecalciferol (vitamin D3) 50 50 mcg PO DAILY 01/10/21 11/03/22 mcg (2,000 unit) capsule cyanocobalamin (vitamin B-12) 1,000 mcg PO DAILY 01/10/21 11/03/22 1,000 mcg capsule Previous Rx's ?Medication ?Instructions ?Recorded ibuprofen 600 mg tablet 600 mg PO Q8H PRN pain #20 tabs 09/25/20 diphenhydramine HCl 25 mg capsule 25 mg PO ONCE #10 caps 08/29/22 (Benadryl) metoclopramide HCl 5 mg tablet 5 mg PO DAILY #10 tabs 08/29/22 (Reglan) bisacodyl 5 mg tablet,delayed 10 mg (2 x 5 mg) PO ONCE for 11/19/22 release (Dulcolax (bisacodyl)) colonoscopy prep 1 day #2 tabs polyethylene glycol 3350 17 238 g PO ONCE for colonoscopy prep 11/19/22 gram/dose oral powder (Miralax) 1 day #238 grams levothyroxine 125 mcg tablet 125 mcg PO DAILY #30 tabs 07/13/24 naproxen 500 mg tablet 500 mg PO BID PRN pain 7 days #14 08/01/24 tabs prednisone 20 mg tablet 40 mg (2 x 20 mg) PO DAILY 5 days 08/01/24 #10 tabs Allergies Allergy/AdvReac Type Severity Reaction Status Date / Time No Known Allergies Allergy Verified 08/01/24 14:49 Review of Systems 2 Review of Systems: posterior neck pain radiating down left arm for months Yes all other systems are reviewed and are negative PMFSH Past Medical History Medical History (Updated 08/02/24 @ 00:01 by Donell Murphy) Hyperplastic colon polyp Hypothyroidism Colon cancer screening Midline back pain Diffuse cystic mastopathy of both breasts Poor vision Depression Anxiety Tobacco abuse Vitamin B 12 deficiency Vitamin D deficiency Adult hypothyroidism Surgical History History of carpal tunnel surgery Hx of tubal ligation Family History Family History Mother Diabetes Leukemia Social History Social History Alcohol intake: current Alcohol intake frequency: holidays/special occasions only Patient Tobacco Use Status: Former Tobacco user Tobacco use type: Cigarette Cigarettes Per Day: 3 Years Smoked: 20 Smoked in Last 30 Days: No Use of substances other than those prescribed or required for medical reasons: No Advance Directives: No Advance Directives Information Provided: Yes Do you have a plan to hurt others: No Plan Patient : No Current occupational status: employed 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 [employer] Physical Exam 2 Vital Signs: Vital Signs: Last Vital Signs Temp 97.6 F 08/01/24 20:34 Pulse 61 08/01/24 20:34 Resp 14 08/01/24 20:34 BP 147/80 H 08/01/24 20:34 Pulse Ox 100 08/01/24 20:34 O2 Del Method Room Air 08/01/24 20:34 BMI result Body Mass Index 28.3 Const: General: cooperative, healthy appearing, comfortable, no acute distress, well developed, alert, awake and Physically active O rientation/consciousness: patient oriented x3 HEENT: Head: Yes normal to inspection, Yes No palpable skull fracture present, Yes normocephalic and Yes atraumatic Eyes: General: appearance normal, both eyes and all related structures Neck: Neck: Yes normal visual inspection, Yes full ROM, Yes no lymphadenopathy, Yes no meningeal signs, Yes trachea midline, Yes supple, No anterior neck swelling and Yes tender (posterior cervical spine tenderness) Chest: Chest palpation & inspection: normal inspection of the chest and normal palpation of entire chest wall Resp: Effort & Inspection: normal respiratory effort and able to speak in complete sentences Auscultation: clear to auscultation bilaterally Cardio: Jugular venous distension: no JVD Heart sounds: S1 normal heart sound present and S2 normal heart sound present GI: Inspection: Yes normal to inspection Palpation (GI): Soft to palpation, not firm, nontender, no guarding and not rigid : General: Yes no CVA tenderness Back/Spine/Pelvis: Back: no CVA tenderness and No back tenderness Skin: General skin exam: no rashes or lesions noted, elasticity normal and turgor normal Neuro: General: patient oriented x3, gait normal, tone normal, moves all extremities, Normal light touch and pain sensation, no meningeal signs, no focal motor deficits, CN's II-XI intact bilaterally and normal sensation to monofilament Extrem: General: Yes normal to inspection, Yes full ROM, Yes capillary refill normal and Yes normal exam except as noted Shoulder/upper arm images: 1. Positive for tenderness on palpation and range of motion. Negative for swelling, ecchymosis, redness, pus discharge, foul odor, crepitus, rash. Rest of extremity normal. Motor/neuro/vascular exam intact Psych: Appearance: grossly normal, well kempt and not disheveled Course Course Course Narrative: This is an RME: Additional HPI, ROS, PE not included below will be deferred to primary provider. RME assessment and note performed by: Saida Golden PA-C This is a [id number] who presents to the ER with complaint of left neck/shoulder pain x a while . Pain worsens with movement and with palpation. Reports that she had carpal tunnel surgery several years ago and was told this is unrelated. No CP or SOB. Plan: XR shoulder, neck xray Medical Decision Making Medical Decision Making [facility] Narrative: 54-year-old female presents to ED for chronic neck pain and chronic shoulder pain for the past 2 months without any trauma. Patient is not pain on range of motion. Patient denies any recent chiropractic work. Patient denies any nausea vomiting chest pain or shortness of breath. EKG negative STEMI 2 troponins negative. Excess. Of cervical spine shows cervical radiculopathy. Not suspecting carotid or vertebral dissection. Not suspecting stroke. Not suspecting meningitis, subluxation, or any other concerning symptoms. Patient explained worrisome signs and informed to return to the ED immediately Differential Diagnosis Differential Diagnoses: The differential diagnosis associated with the presentation includes (Cervical radiculopathy, cervical sprain, shoulder arthritis shoulder fracture) Admission/Observation Consideration of admission/observation: Escalation of care including admission/observation considered Lab Data [facility] Lab Attestation statement: I reviewed the patient's lab results. 08/01/24 17:41 08/01/24 17:41 Labs: Lab Results 08/01/24 08/01/24 Range/Units 17:41 19:44 WBC 7.4 (4.8-10.8) X10*3/uL RBC 4.40 (4.20-5.50) X10*6/uL Hgb 12.7 (12.0-16.0) g/dl Hct 37.9 (37.0-47.0) % MCV 86.1 (80.0-98.0) fL MCH 28.9 (27.0-33.0) pg MCHC 33.5 (31.0-35.0) g/dl RDW 13.0 (11.0-16.0) % Plt Count 246 (160-400) X10*3/uL MPV 10.7 (9.4-12.3) fL Immature Gran % (Auto) 0.7 H (0.0-0.4) % Neut % (Auto) 55.6 (45-73) % Lymph % (Auto) 33.7 (20-40) % [place] % (Auto) 7.3 (2-11) % Eos % (Auto) 2.3 (0-4) % Baso % (Auto) 0.4 (0-2) % Lymph # (Auto) 2.5 (1.2-4.9) X10*3/uL [place] # (Auto) 0.5 (0.1-1.2) X10*3/uL Eos # (Auto) 0.2 (0.0-0.4) X10*3/uL Baso # (Auto) 0.0 (0.0-0.2) X10*3/uL Abs Immat Gran (auto) 0.05 H (0.00-0.03) X10*3/uL Absolute Neuts (auto) 4.1 (2.0-8.3) x10*3/uL Absolute Nucleated RBC 0.000 (0.0-0.012) X10*3/uL Nucleated RBC % (auto) 0.0 (0.0-0.2) /100WBC PT 10.3 L (10.9-12.4) SEC INR 0.9 (0.9-1.1) APTT 30.3 (26.0-36.8) SEC Sodium 141 (135-145) mmol/L Potassium 3.9 (3.3-5.1) mmol/L Chloride 107 (96-108) mmol/L Carbon Dioxide 28 (22-29) mmol/L Anion Gap 10 L (12-20) BUN 16 (9-16) mg/dL Creatinine 0.90 (0.5-1.4) mg/dL Estim Creat Clear Calc 64.1 Estimated GFR > 60 Random Glucose 105 (60-115) mg/dL Calcium 8.7 D (8.4-10.2) mg/dL Total Bilirubin 0.6 (0.0-1.0) mg/dL AST 30 (5-31) U/L ALT 28 (0-31) U/L Alkaline Phosphatase 152 H (39-117) U/L Troponin I High Sens 8.9 9.0 (<3.5-17.0) ng/L Total Protein 7.6 (6.5-8.0) g/dL Albumin 4.2 (3.5-5.0) g/dL Independent Interpretation I performed an independent interpretation of an: EKG (Negative STEMI) and Plain X-Ray Radiology Impression Discussion of test interpretation with radiology: I have reviewed the radiologist's reading. Independent Historian Clinical information obtained from an independent historian. History obtained from or confirmed by: Other (Patient) External Record Review External record reviewed: Other (Prior visit) Prescription Management I considered prescription management with: Pain Medication Discharge Plan Discharge Clinical Impression: Cervical radiculopathy, Arthritis of shoulder Patient Disposition: Home, Self-Care Instructions: Osteoarthritis (ED), Cervical Radiculopathy (ED) Additional Instructions: Return to the ED for any upper extremity weakness, paralysis, inability neck pain, pain, shortness of breath, slurred speech, facial droop, headache, paralysis of extremities, dizziness, nausea, vomiting, or any other concerning symptoms. Recommend follow up with primary care provider. FINDINGS: No acute abnormality. No fracture. No subluxation. No prevertebral soft tissue swelling. Degenerative disc height narrowing and vertebral endplate spurs anteriorly C5-C6. The remainder of the disc heights are normal. Facet joints are normal. XR/XR cervical spine 3V IMPRESSION: 1. No acute abnormality. 2. Degenerative disc disease C5-C6. Electronically signed by: Hari Espinal MD 08/01/2024 04:59 PM EST RP XR/XR shoulder LT min 2V IMPRESSION: 1. No acute findings left shoulder. 2. Very mild degenerative arthritis glenohumeral joint and AC joint. Electronically signed by: Teofilo Barillas MD 08/01/2024 04:35 PM EST RP Prescriptions: New prednisone 20 mg tablet 40 mg PO DAILY 5 Days Qty: 10 0RF naproxen 500 mg tablet 500 mg PO BID PRN (Reason: pain) 7 Days Qty: 14 0RF No Action bisacodyl [Dulcolax (bisacodyl)] 5 mg tablet,delayed release (DR/EC) 10 mg PO ONCE 1 Days Qty: 2 0RF Rx Instructions: Take at 4pm on the day prior to the procedure. polyethylene glycol 3350 [Miralax] 17 gram/dose powder 238 g PO ONCE 1 Days Qty: 238 0RF Rx Instructions: Mix entire bottle with 64 oz of clear liquid (no red or purple dye) and divide in half. At 6 pm, begin drinking the first half of the mixture (approx. 1 8oz glass every 15 minutes) until gone. At 11pm, begin drinking the second half of the mixture in the same fashion, until gone. levothyroxine 125 mcg tablet 125 mcg PO DAILY Qty: 30 5RF ibuprofen 600 mg tablet 600 mg PO Q8H PRN (Reason: pain) Qty: 20 0RF metoclopramide HCl [Reglan] 5 mg tablet 5 mg PO DAILY Qty: 10 0RF diphenhydramine HCl [Benadryl] 25 mg capsule 25 mg PO ONCE Qty: 10 0RF cholecalciferol (vitamin D3) 50 mcg (2,000 unit) capsule 50 mcg PO DAILY cyanocobalamin (vitamin B-12) 1,000 mcg capsule 1,000 mcg PO DAILY Rx Instructions: 2 caps daily Stand Alone Forms: Work/School Release Interventions: ED Discharge Assessment Last Done: 08/01/24 20:34 Discharge Date/Time: 08/01/24 20:35 Print Language: Sami
--- NOTE | 2024-08-01 17:35 | ECG_ITS ---
Test Reason : LEFT SHOULDER PAIN Blood Pressure : / mmHG Vent. Rate : 064 BPM Atrial Rate : 064 BPM P-R Int : 172 ms QRS Dur : 082 ms QT Int : 416 ms P-R-T Axes : 049 028 026 degrees QTc Int : 429 ms Normal sinus rhythm Normal ECG When compared with ECG of 12-NOV-2018 16:47, No significant change was found Referred By: Yaakov Cervantes Electronically Signed By:NICHOLAS CHEEMA
[2024-08-01 17:45] LABS: MANUAL DIFF FLAG NO
--- NOTE | 2024-08-01 17:52 | PC.NURSE ---
a&ox4. vss and up to date. pt presents to the ED w/ constant left shoulder pain x march. pt reports worsening pain recently. denies injury/numbness/tingling. ROM intact. pulses palpable. chest xray completed - negative. labs obtained/sent to lab. ekg performed by tech. pt on RA w/o difficulty. no sob/wob noted. respirations even/unlabored. plan of care ongoing. call gan placed within reach.
[2024-08-01 18:01] LABS: Alanine Aminotransferase 28 U/L (0-31); Albumin Level 4.2 g/dL (3.5-5.0); Alkaline Phosphatase 152 U/L (39-117); Anion Gap 10 (12-20); Aspartate Amino Transferase 30 U/L (5-31); Bilirubin Total 0.6 mg/dL (0.0-1.0); Blood Urea Nitrogen 16 mg/dL (9-16); Calcium 8.7 mg/dL (8.4-10.2); Carbon Dioxide 28 mmol/L (22-29); Chloride 107 mmol/L (96-108); Creatinine Clr Calc Pharmacy 64.1; Estimated Glomerular Filt Rate > 60; Glucose Random 105 mg/dL (60-115); Potassium 3.9 mmol/L (3.3-5.1); Sodium 141 mmol/L (135-145); Total Protein 7.6 g/dL (6.5-8.0)
[2024-08-01 18:08] LABS: INTERNATIONAL NORM RATIO 0.9 (0.9-1.1); Prothrombin Time 10.3 SEC (10.9-12.4); Troponin-I High Sensitivity 8.9 ng/L (<3.5-17.0)
[2024-08-01 18:10] LABS: Basophils Percent Auto 0.4 % (0-2); Eosinophils Absolute Auto 0.2 X10*3/uL (0.0-0.4); Eosinophils Percent Auto 2.3 % (0-4); Hematocrit 37.9 % (37.0-47.0); Hemoglobin 12.7 g/dl (12.0-16.0); Imm Gran Abs Auto 0.05 X10*3/uL (0.00-0.03); Imm Gran Pct Auto 0.7 % (0.0-0.4); Lymphocytes Absolute Auto 2.5 X10*3/uL (1.2-4.9); Lymphocytes Percent Auto 33.7 % (20-40); Mean Corpuscular HGB Conc 33.5 g/dl (31.0-35.0); Mean Corpuscular Hemoglobin 28.9 pg (27.0-33.0); Mean Corpuscular Volume 86.1 fL (80.0-98.0); Mean Platelet Volume 10.7 fL (9.4-12.3); Monocytes Absolute Auto 0.5 X10*3/uL (0.1-1.2); Monocytes Percent Auto 7.3 % (2-11); Neutrophils Absolute Auto 4.1 x10*3/uL (2.0-8.3); Neutrophils Percent Auto 55.6 % (45-73); Platelet Count 246 X10*3/uL (160-400); White Blood Count 7.4 X10*3/uL (4.8-10.8)
[2024-08-01 18:11] LABS: Partial Thromboplastin Time 30.3 SEC (26.0-36.8)
[2024-08-01 20:27] VITALS: BP 147/80; PULSE 61; RESP 14; TEMP 36.4; O2SAT 100
[2024-08-01 20:34] VITALS: BP 147/80; PULSE 61; RESP 14; TEMP 36.4; O2SAT 100
== END 2024-08-01 20:35 | disposition home or self-care (01) ==
PROVIDERS: Physician Assistant; Emergency Provider Internal Medicine; PCP Nurse Practitioner Primary Care
DX: M19.012 Primary osteoarthritis, left shoulder (principal); M54.12 Radiculopathy, cervical region; M25.512 Pain in left shoulder; E03.9 Hypothyroidism, unspecified; F17.210 Nicotine dependence, cigarettes, uncomplicated; Z79.899 Other long term (current) drug therapy
CPT/HCPCS: 36415; 72040; 73030; 80053; 84484; 85025; 85610; 85730; 93005; 99283; 99284

== ENCOUNTER → 2024-08-01 14:53 | Outpatient (BNV) | payer MEDICAID, SELFPAY | PROVIDERS: PCP Nurse Practitioner Primary Care; Visit Provider Radiology Diagnostic Radiology | DX: M25.512 Pain in left shoulder (principal) | CPT/HCPCS: 73030 ==

== ENCOUNTER → 2024-08-01 17:35 | Outpatient (BNV) | payer MEDICAID, SELFPAY | PROVIDERS: Emergency Provider Internal Medicine; PCP Nurse Practitioner Primary Care; Visit Provider Internal Medicine | DX: M25.512 Pain in left shoulder (principal) | CPT/HCPCS: 93010 ==

== ENCOUNTER 2024-10-11 16:36 | Outpatient (REF) | payer MEDICAID, SELFPAY ==
--- NOTE | ~2024-10-11 | CT_ITS ---
CLINICAL HISTORY: eval for worsneing foraminal stenosis, cervical radiculopathy CT cervical spine without contrast Comparison: Cervical spine radiographs 08/01/2024 Findings: There are no acute fractures. There is multilevel cervical spondylosis most significant at C5-C6. There is disc space narrowing C5-C6. There is posterior disc osteophyte complex. There is mild central canal stenosis. There is mild effacement of the anterior aspect of the spinal cord. There is significant uncinate hypertrophy. There is moderate left foraminal stenosis and [id number] left foraminal stenoses. The other disc levels demonstrate mild disc osteophyte complexes. There is mild right foraminal stenosis C4-C5. The other disc levels demonstrate no significant central canal or foraminal stenoses. The CT cervical spine findings correspond to knee radiographs performed 08/01/2024. There are mild degenerative changes of the upper thoracic spine with mild disc osteophyte complexes. No acute findings on limited view of the intracranial contents. Soft tissues of the neck are normal. Lung apices are clear. IMPRESSION: Multilevel cervical spondylosis most significant at C5-C6 as above This document has been electronically signed by: Shay Pisano MD on 10/12/2024 09:04:04
--- OUTSIDE RECORDS SUMMARY | 2024-10-11 19:49 | XMS_ITS | Encounter Summary ---
Author Organization [employer] [facility] Address [address] [place] [address] 7 [place] [address] Care Team Providers Care Principal Technical Architect Name Role Phone Adeline Faustin Primary Care Provider [phone] Encounter Details Date Type Department Care Team (Latest Contact Info) Description 07/01/2019 Abstract [facility] CONVERSIONS Dental, Provider, DDS Social History Tobacco Use Types Packs/Day Years Used Date Smoking Tobacco: Never Assessed Comments Unknown Sex and Gender Information Value Date Recorded Sex Assigned at Female 06/16/2022 10:14 AM EDT Legal Sex Female 10:14 AM EDT Gender Identity Female 06/16/2022 10:14 AM EDT Sexual Orientation Straight 06/16/2022 10 :14 AM EDT documented as of this encounter Plan of Treatment Upcoming Encounters Date Type Department Care Team (Late st Contact Info) Description 11/25/2024 11:15 AM EDT Office Visit [facility] MEDICINE [address] [place] [address] Adeline Faustin ANP [address] [place] [address] documented as of this encounter Visit Diagnoses Not on filedocumented in this encounter Care Teams Principal Technical Architect Relationship Specialty Start Date End Date Adeline Faustin ANP [address] [place] [address] PCP - General Family Medicine 04/16/20 documented as of this encounter
--- OUTSIDE RECORDS SUMMARY | 2024-10-11 19:49 | XMS_ITS | Encounter Summary ---
Author Organization [facility] Address [address] [place] [address] 7 [place] [address] Care Team Providers Care Inspector Fabric Name Role Phone Adeline Faustin Primary Care Provider [phone] Encounter Details Date Type Department Care Team (Latest Contact Info) Description 10/01/2018 Abstract [facility] CONVERSIONS Dental, Provider, DDS Social History Tobacco [...] Description 11/25/2024 11:15 AM EDT Office Visit [facility] MEDICINE [address] [place] [address] Adeline Faustin ANP [address] [place] [address] documented as of this encounter Visit Diagnoses Not on filedocumented in this encounter Care Teams Inspector Fabric Relationship Specialty Start Date End Date Adeline Faustin ANP [address] [place] [address] PCP - General Family Medicine 04/16/20 documented as of this encounter
--- OUTSIDE RECORDS SUMMARY | 2024-10-11 19:49 | XMS_ITS | Encounter Summary ---
Author Organization [employer] Address [address] [place] [address] [address] [place] [address] Care Team Providers Care Sales And Service Advisor Name Role Phone Adeline Faustin PAULETTE Primary Care Provider [phone] Reason for Visit * Reason Onset Date Comments Beatriz recall 09/19/2024 Encounter Details Date Type Department Care Team (Late st Contact Info) Description 09/19/2024 Telephone [facility] MEDICINE [address] [place] [address] Cata Parm[place], [place] November recall Social History Tobacco Use Types Packs/Day Years Used Date Smoking Tobacco: Former Cigarettes Q uit: 2019 Passive Smoke Exposure: Past Smokeless Tobacco: Never Alcohol Use Standard Drinks/Week Comments Not Currently 0 (1 standard drink = 0.6 oz pur e alcohol) Depression Answer Date Recorded Patient Health Questionnaire-9 Score 0 11/12/2023 Patient Health Questionnaire-9 Score 0 11/12/2023 Last PHQ-9: Questionnaire Data Not on file 0 11/12/2023 Housing Stability Answer Date Recorded What is your housing situation today? I have sanjay huggins 11/04/[address] you li ve. Do you have problems with any of the following? None of the above 11/04/2023 Food Insecurity Answer Date Recorded Within the past 12 months, y ou worried that your food would run out before you got money to buy more: Never True 11/12/2023 Within the past 12 months,th e food you bought just didn't last and you didn't have enough money to get more: Never True Transportation Answer Date Recorded In the past 12 months, has l ack of transportation kept you from medical appts, meetings, work or from getting things needed for daily living? No 11/12/2023 Utilities Answer Date Recorded In the past 12 months, has t he electric, gas, oil or water company threatened to shut off services in your home? No 11/04/2023 Depression Answer Date Recorded Patient Health Questionnaire-2 Score 0 11/12/2023 Internet Access Answer Date Recorded Internet Access Q1 Yes 07/18/2024 Internet Access Q2 Not on file 07/18/2024 Comments No Sex and Gender Information Value Date Recorded Sex Assigned at Female 06/16/2022 10:14 AM EDT Legal Sex Female 10:14 AM EDT Gender Identity Female 06/16/2022 10:14 AM EDT Sexual Orientation Straight 06/16/2022 10 :14 AM EDT documented as of this encounter Miscellaneous Notes * Telephone Encounter - Forrest Parmar MA - 09/19/2024 3:39 PM EST T/C to pt to schedule a recall f/u chronic condition. PT agreed to come in on 11/25/24 at 11:15am. documented in this encounter Plan of Treatment Upcoming Encounters Date Type Department Care Team (Late st Contact Info) Description 11/25/2024 11:15 AM EDT Office Visit [facility] MEDICINE [address] [place] [address] Adeline Faustin ANP [address] [place] [address] documented as of this encounter Visit Diagnoses Not on filedocumented in this encounter Additional Health Concerns Assessment Noted Time PHQ-9 Depression Total Score: 0 11/12/19 24 10:07 AM EDT documented as of this encounter Care Teams Sales And Service Advisor Relationship Specialty Start Date End Date Adeline Faustin ANP [address] [place] [address] PCP - General Family Medicine 04/16/20 documented as of this encounter
--- OUTSIDE RECORDS SUMMARY | 2024-10-11 19:49 | XMS_ITS | Encounter Summary ---
Author Organization [employer] [facility] Address [address] [place] [address] [address] [place] [address] Care Team Providers Care Direct Casting Operator Name Role Phone Adeline Faustin Primary Care Provider [phone] Reason for Visit * Reason Onset Date Comments Change providers 12/17/2022 Encounter Details Date Type Department Care Team ([facility] st Contact Info) Description 12/17/2022 Telephone [facility] MEDICINE [address] [place] [address] Adeline Faustin ANP [address] [place] [address] Change providers Social History Tobacco Use Types Packs/Day Years Used Date Smoking Tobacco: Former Cigarettes Q uit: 2019 Passive Smoke Exposure: Past Smokeless Tobacco: Never Alcohol Use Standard Drinks/Week Comments Not Currently 0 (1 standard drink = 0.6 oz pur e alcohol) Depression Answer Date Recorded Patient Health Questionnaire-2 Score 0 09/22/2022 Comments No Sex and Gender Information Value Date Recorded Sex Assigned at Female 06/16/2022 10:14 AM EDT Legal Sex Female 10:14 AM EDT Gender Identity Female 06/16/2022 10:14 AM EDT Sexual Orientation Straight 06/16/2022 10 :14 AM EDT COVID-19 Exposure Response Date Recorded In the last 10 days, have yo u been in contact with someone who was confirmed or suspected to have Coronavirus/COVID-19? No / Unsure 12/16/2022 11:18 AM EDT documented as of this encounter Miscellaneous Notes * Telephone Encounter - Sergei Maldonado RN - 12/19/2022 2:03 PM EDT RN called patient to discuss transfer request, Patient reports that she would like to transfer as she feels needs not being met. Patient informed transfer approved and that message will be sent to java front end web developer to call patient and tell who is accepting new patients. Patient advised in the mean time until she sees the new provider her current PCP will refill medications. RN ensured patienthad understanding of her medication and dosage changes that occurred recently with her TSH levels. Patient verbalized she understood instructions with medications and agrees with plan regarding transfer. Message forwarded to manager of planning to call patient about transfer request. * Telephone Encounter - Barbara Larios - 12/17/2022 4:31 PM EDT Tc from pt requesting to switch providers due to a medication concern she is having regarding levothyroxine (Synthroid, Levoxyl) 150 MCG tablet .. ( pt was wrongly taking medication ) Please contact pt at [phone] Malay Speaker documented in this encounter Plan of Treatment Upcoming Encounters Date Type Department Care Team (Late st Contact Info) Description 11/25/2024 11:15 AM EDT Office Visit [facility] MEDICINE [address] [place] [address] Adeline Faustin ANP [address] [place] [address] documented as of this encounter Visit Diagnoses Not on filedocumented in this encounter Care Teams Direct Casting Operator Relationship Specialty Start Date End Date Adeline Fasutin ANP [address] [place] [address] PCP - General Family Medicine 04/16/20 documented as of this encounter
--- OUTSIDE RECORDS SUMMARY | 2024-10-11 19:49 | XMS_ITS | Encounter Summary ---
Author Organization [employer] Address [address] [place] [address] [address] [place] [address] Care Team Providers Care Chemical Strength Tester Name Role Phone Adeline Faustin Primary Care Provider [phone] Reason for Visit * Reason Onset Date Comments Pt1 02/02/2024 Encounter Details Date Type Department Care Team ([facility] st Contact Info) Description 02/02/2024 Telephone [facility] MED[facility] [address] [place] [address] Adeline Faustin ANP [address] [place], [place] [id number] Pt1 Social History Tobacco Use Types Packs/Day Years [...] Recorded Patient Health Questionnaire-2 Score 0 11/12/2023 Comments No Sex and Gender Information Value Date Recorded Sex Assigned at Female 06/16/2022 10:14 AM EDT Legal Sex Female 10:14 AM EDT Gender Identity Female 06/16/2022 10:14 AM EDT Sexual Orientation Straight 06/16/2022 10 :14 AM EDT documented as of this encounter Miscellaneous Notes * Telephone Encounter - [place] - 02/02/2024 9:23 AM EDT Patient calling requesting PT1 Home Address verified: Y/N: Yes Provider name or facility name: [facility] Facility Address: [address] [place] [address] [place] [address] Escort needed: Y/N: No Do you have a wheelchair: Y/N: No If yes- Manual or electric: no Visits: 2 a month documented in this encounter Plan of Treatment Upcoming Encounters Date Type Department Care Team (Late st Contact Info) Description 11/25/2024 11:15 AM EDT Office Visit [facility] [address] [place] [address] Adeline Faustin ANP [address] [place] [address] documented as of this encounter Visit Diagnoses Not on filedocumented in this encounter Additional Health Concerns Assessment Noted Time PHQ-9 Depression Total Score: 0 11/12/19 24 10:07 AM EDT documented as of this encounter Care Teams Chemical Strength Tester Relationship Specialty Start Date End Date Adeline Faustin ANP [address] [place] [address] PCP - General Family Medicine 04/16/20 documented as of this encounter
--- OUTSIDE RECORDS SUMMARY | 2024-10-11 19:49 | XMS_ITS | Encounter Summary ---
Author Organization [employer] [facility] Address [address] [place] [address] 7 [place] [address] Care Team Providers Care Irrigation System Operator Name Role Phone Adeline Faustin Primary Care Provider [phone] Encounter Details Date Type Department Care Team (Latest Contact Info) Description 08/13/2020 Abstract [facility] CONVERSIONS Dental, Provider, DDS Social [...] Description 11/25/2024 11:15 AM EDT Office Visit [facility] MEDICINE [address] [place] [address] Adeline Faustin ANP [address] [place] [address] documented as of this encounter Visit Diagnoses Not on filedocumented in this encounter Care Teams Irrigation System Operator Relationship Specialty Start Date End Date Adeline Faustin ANP [address] [place] [address] PCP - General Family Medicine 04/16/20 documented as of this encounter
--- OUTSIDE RECORDS SUMMARY | 2024-10-11 19:49 | XMS_ITS | Encounter Summary ---
Author Organization [employer] [facility] Address [address] [place] [address] [address] [place] [address] Care Team Providers Care Development Writer Name Role Phone Adeline Faustin Primary Care Provider Encounter Details Date Type Department Care Team (Late st Contact Info) Description 09/11/2022 Orders Only [facility] MED[facility]INE [address] [place] [address] Debbie De La Paz FNP [address] [place] [address] Pain of right lower extremity (Primary Dx) Social History Tobacco Use Types Packs/Day Years Used Date Smoking Tobacco: Former Cigarettes Q uit: 2019 Passive Smoke Exposure: Past Smokeless Tobacco: Never Alcohol Use Standard Drinks/Week Comments Never 0 (1 standard drink = 0.6 oz pur e alcohol) Comments Unknown Sex and Gender Information Value [...] suspected to have Coronavirus/COVID-19? No / Unsure 08/29/2022 9:53 AM EST documented as of this encounter Plan of Treatment Upcoming Encounters Date Type Department Care Team (Late st Contact Info) Description 11/25/2024 11:15 AM EDT Office Visit [facility] [address] [place] [address] Adeline Faustin ANP [address] [place] [address] Scheduled Orders Name Type Priority Associated Diagnoses Orde r Schedule XR Foot 3+ Views Right Imaging Routine Pain of right lower extremity Expected: 09/11/2022, Expires: 09/11/2023 documented as of this encounter Visit Diagnoses Diagnosis Pain of right lower extremity- Primary documented in this encounter Care Teams Development Writer Relationship Specialty Start Date End Date Adeline Faustin ANP [address] [place] [id number] PCP - General Family Medicine 04/16/20 documented as of this encounter
--- OUTSIDE RECORDS SUMMARY | 2024-10-11 19:49 | XMS_ITS | Clinical Summary ---
Author Organization [employer] Address [address] [place] [address] [address] [place] [address] Care Team Providers Care Nocturnist Name Role Phone Yesica Flores PAULETTE Primary Care Provider [phone] Allergies No known active allergies Medications ascorbic acid (Vitamin C) 250 MG tablet TAKE 1 TABLET BY MOUTH WITH IRON TABLET ONCE DAILY 1 Active ferrous sulfate 325 (65 Fe) MG tablet TAKE 1 TABLET BY MOUTH ONCE DAILY WITH VITAMIN C 1 Active metoclopramide (Reglan) 5 MG tablet Take 5 mg by mouth in the morning. 3 Active PARoxetine (Paxil) 10 MG tablet Take 1 tablet (10 mg) by mouth in the morning. 30 tablet 11 3 Active meclizine (Antivert) 25 MG tablet 1 tab po BID 60 tablet 3 3 Active levothyroxine (Synthroid, Levoxyl) 125 MCG tablet Take 125 mcg by mouth in the morning. Active naproxen (Naprosyn) 500 MG tabletIndications :Chronic pain of left upper extremity 1 tab up to twice daily with food as needed for pain 60 tablet 4 Active gabapentin (Neurontin) 100 MG capsuleIndication s:Left cervical radiculopathy 1 capsule at bedtime daily, may increase to 2 capsules at bedtime if ineffective 90 capsule 1 5 Active Active Problems Problem Noted Date Diagnosed Date Elevated blood pressure reading 10/04/2023 Assessment & Plan (10/04/2023 11:44 PM EST): Mild elevated BP today ,possible reactive to pain? -advised pt to f w PCP to monitor BP Hand pain, left 10/04/2023 Assessment & Plan (10/04/2023 11:45 PM EST): Here pt w Tinel + , phalen neg normal strength in upper extremities Noted pevious surgeries scars in both wrist Most likely symptoms are still associated w her previous dx CTS,despite recent normal EMG will have pt to be reevaluated w her surgeon . -advise pt to use wrist brace for now-has at home -tylenol prn -referred back to hand surgeon -States has TFT w specialist and reports controlled recently -alarm signs and symptoms discussed w pt Cardiovascular event risk 11/12/2022 Overview (11/12/2022): 10-yr ASCVD risk 4.9% 09/2022 Acquired hypothyroidism 06/06/2015 Cobalamin deficiency 06/06/2015 Lumbago with sciatica 06/06/2015 Mixed anxiety and depressive disorder 06/06/2015 Tobacco dependence syndrome 06/06/2015 Overview (01/21/2024): Quit 3 years ago 2020. Visual impairment 06/06/2015 Vitamin D deficiency 06/06/2015 Encounters Date Type Department Care Team Description 09/19/[address] [address] Forrest Parmar [place] Beatriz recall 09/06/2024 Patient Outreach [facility] [address] [place] [phone] Yesica Flores ANP Care Coordination (CH[facility] outreach for SDOH PT-1 and food needs-referral completed /) 09/06/2024 Telephone [facility] [address] [place] [phone] Yesica Flores ANP PT-1 09/01/2024 2:15 PM EST Office Visit [address] [address] Yesica Flores ANP Left cervical radiculopathy (Primary Dx); Chronic pain of left upper extremity; Elevated CK 08/24/2024 Telephone [facility] [address] [place] [phone] Yesica Flores ANP 08/02/2024 Telephone [facility] [address] [place] [phone] Yesica Flores ANP ER Follow-up 08/01/2024 Orders Only GENERIC EXTERNAL DATA DEPARTMENT Provider, Generic External Data 07/26/2024 10:15 AM EST Office Visit [address] [address] Yesica Flores ANP Encounter for immunization (Primary Dx); Neck pain; Chronic pain of left upper extremity; Acute pain of left knee; Acute cough 07/26/2024 Travel 07/18/2024 Patient Outreach [address] [address] Yesica Flores ANP Pre-visit Planning (SDOH screening was completed on 11/12/2023) 07/15/2024 Orders Only GENERIC EXTERNAL DATA DEPARTMENT Provider, Generic External Data 07/12/2024 Refill [facility] [address] [place] [phone] Name, MD Jean Pierre from Last 3 Months Immunizations Name Administration Dates Next Due Influenza injectable quadriv alent IIV4 with preservative 06/23/2018,06/18/2016,06/06/2015 Influenza injectable quadriv alent preservative free 08/27/2020,08/01/2019 Influenza, IIV3, injectable 06/09/2008 Influenza, Split (incl. [place] antigen) 06/28/2013,06/10/2012 Influenza, seasonal, injecta ble, preservative free 07/26/2024 Pfizer Covid-19 Vaccine 12+ rob-sucrose (Jensen Cap) 12/11/2021,11/20/2021 TD (adult), 2 Lf tetanus tox oid, preservative free, adsorbed 07/26/2024,09/06/1998,10/20/1996 Tdap 12/14/2012 Zoster, Recombinant 12/05/2020,10/04/2020 Social History Tobacco Use Types Packs/Day Years Used Date Smoking Tobacco: Former Cigarettes Q uit: 2019 Passive Smoke Exposure: Past Smokeless Tobacco: Never Tobacco Cessation:Counseling Given: Not Answered Alcohol Use Standard Drinks/Week Comments Not Currently [...] Orientation Straight 06/16/2022 10 :14 AM EDT Last Filed Vital Signs Vital Sign Reading Time Taken Comments Blood Pressure 153/96 09/01/2024 2:14 PM EST Pulse 71 09/01/2024 2:14 PM EST Temperature 36.3 ??C (97.4 ??F) 09/01/2024 2:14 PM ES T Respiratory Rate 16 09/01/2024 2:14 PM EST Oxygen Saturation 99% 09/01/2024 2:14 PM EST Inhaled Oxygen Concentration - - Weight 71 kg (156 lb 9.6 oz) 09/01/2024 2:14 PM EST Height 157.5 cm (5' 2 ) 01/21/2024 10:33 AM EDT Body Mass Index 28.64 01/21/2024 10:33 AM EDT Plan of Treatment Upcoming Encounters Date Type Department Care Team (Late st Contact Info) Description 11/25/2024 11:15 AM EDT Office Visit [facility] [address], [place] [phone] Yesica Flores, ANP [address] [place] [address] Health Maintenance Due Date Last Done Comments CT Colonography 1968 FIT DNA/Cologuard 1968 FIT 1968 FOBT 1970 Sigmoidoscopy 1968 Hepatitis C Screening 1986 Hepatitis A Vaccines (1 of 2 - Risk 2-dose series) 1987 Hepatitis B Vaccines (1 of 3 - 19+ 3-dose series) 1987 Pneumococcal Vaccine: 50+ Years (1 of 1 - PCV) 2018 Depression Screening 11/11/2024 11/12/2023, 11/12/19 24 SDOH Screening 11/11/2024 11/12/2023 Mammogram 02/07/2025 02/08/2024, 01/16, 01/24/2022, Additional history exists Alcohol/Substance Use Screening 09/01/2025 09/01/2024 COVID-19 Vaccine ( season) 2025 12/11/2021, 11/20/2021 Postponed from 04/17/2024 (Patient Refused) Tobacco Screening 09/01/2025 09/01/2024 Cervical Cancer Screening 11/20/2026 HPV/Cotest 11/20/2026 11/20/2021 Pap Smear 11/20/2026 11/20/2021 Colonoscopy 06/26/2033 09/22/2022, 1011/2018, 05/20/2018 Colorectal Cancer Screening 06/26/2033 DTaP/Tdap/Td Vaccines (3 - Td or Tdap) 07/26/2034 07/26/2024, 12/14/2012, 09/06/1998, Additional history exists RSV Patients and Patients Aged 60 years or older (1 - 1-dose 75+ series) 2043 Zoster Vaccines Completed 12/05/2020, 10/04/2020 HIV Screening Completed 10/03/2022 Influenza Vaccine Completed 07/26/2024, , 08/01/2019, Additional history exists HIB Vaccines Aged Out No longer eligi ble based on patient's age to complete this topic HPV Vaccines Aged Out No longer eligi ble based on patient's age to complete this topic IPV Vaccines Aged Out No longer eligi ble based on patient's age to complete this topic Meningococcal Vaccine Aged Out No melissa andrei eligible based on patient's age to complete this topic RSV under 20 months Aged Out No longe r eligible based on patient's age to complete this topic Rotavirus Vaccines Aged Out No longer eligible based on patient's age to complete this topic Procedures Procedure Name Priority Date/Time Associated Diagnosis Comments HIGH SENSITIVITY TROPONIN I Routine 08/01/2024 7:44 PM EST APTT Routine 08/01/2024 5:41 PM EST PROTHROMBIN TIME-INR Routine 08/01/2024 5:41 PM EST CBC WITH AUTO DIFFERENTIAL Routine 08/01/2024 5:41 PM EST HIGH SENSITIVITY TROPONIN I Routine 08/01/2024 5:41 PM EST COMPREHENSIVE METABOLIC PANEL Routine 08/01/2024 5:41 PM EST XR CERVICAL SPINE 3V Routine 08/01/2024 2:53 PM EST XR SHOULDER 2+ VIEWS LEFT Routine 08/01/2024 2:53 PM EST TSH Routine 07/15/2024 2:39 PM EST T4, FREE Routine 07/15/2024 2:39 PM EST BI MAMMOGRAM SCREENING TOMOSYNTHESIS BILATERAL Routine 02/08/2024 2:28 PM EDT HIV 1/2 ANTIGEN/ANTIBODY, FOURTH GENERATION W/RFL Routine 10/03/2022 9:03 AM EST Routine screening for STI (sexually transmitted infection) HM COLONOSCOPY Routine 09/22/2022 2:02 PM EST THINPREP IMAGING PAP AND HPV MRNA E6/E7 WITH REFLEX TO HPV 16,18/45 Routine 11/20/2021 9:08 AM EDT from Last 3 Months or Most Recently Relevant to Health Maintenance Results * High Sensitivity Troponin I (08/01/2024 7:44 PM EST) Only the most recent of2 resultswithin the time period is included. [facility] TROPONIN I HIGH SENSITIVITY 9.0 <3.5 - 17.0 ng/L [facility] Comment:The White high sens itivity Troponin-I results should beused in conjunction with other diagnostic information suchas ECG, clinical observations and information, and patientsymptoms to aid in the diagnosis of MN. 08/01/2024 7:44 PM EST 08/01/2024 7:47 PM EST us Generic External Data Provider LAB BLOOD ORDERAB LES Final Result [facility] [address] [place] [phone] * (ABNORMAL) CBC auto differential (08/01/2024 5:41 PM EST) [facility] White Blood Count 7.4 4.8 - 10.8 X10*3/uL [facility] Red Blood Count 4.40 4.20 - 5.50 X10*6/uL [facility] Hemoglobin 12.7 12.0 - 16.0 g/dl [facility] Hematocrit 37.9 37.0 - 47.0 % [facility] Mean Corpuscular Volume 86.1 80.0 - 98.0 fL [facility] Mean Corpuscular Hemoglobin 28.9 27.0 - 33.0 pg [facility] Mean Corpuscular HGB Conc 33.5 31.0 - 35.0 g/dl [facility] Red Cell Distribution Width 13.0 11.0 - 16.0 % [facility] Platelet Count 246 160 - 400 X10*3/uL [facility] Mean Platelet Volume 10.7 9.4 - 12.3 fL [facility] Neutrophils Percent Auto 55.6 45 - 73 % [facility] Imm Gran Pct Auto 0.7(H) 0.0 - 0.4 % [facility] Lymphocytes Percent Auto 33.7 20 - 40 % [facility] Monocytes Percent Auto 7.3 2 - 11 % [facility] Eosinophils Percent Auto 2.3 0 - 4 % [facility] Basophils Percent Auto 0.4 0 - 2 % [facility] NRBC Pct Auto 0.0 0.0 - 0.2 /100WBC [facility] Neutrophils Absolute Auto 4.1 2.0 - 8.3 x10*3/uL [facility] Imm Gran Abs Auto 0.05(H) 0.00 - 0.03 X10*3/uL [facility] Lymphocytes Absolute Auto 2.5 1.2 - 4.9 X10*3/uL [facility] Monocytes Absolute Auto 0.5 0.1 - 1.2 X10*3/uL [facility] Eosinophils Absolute Auto 0.2 0.0 - 0.4 X10*3/uL [facility] Basophils Absolute Auto 0.0 0.0 - 0.2 X10*3/uL [facility] NRBC Abs Auto 0.000 0.0 - 0.012 X10*3/uL [facility] 08/01/2024 5:41 PM EST 08/01/2024 5:44 PM EST us Generic External Data Provider LAB BLOOD ORDERAB LES Final Result [facility] [address] [place] [phone] [phone] * Partial Thromboplastin Time, Activated (APTT) (08/01/2024 5:41 PM EST) Partial Thromboplastin Time 30.3 26.0 - 36.8 SEC [facility] Comment:For information rega rding the monitoring of direct thrombininhibitors, please refer to Pharmacy. 08/01/2024 5:41 PM EST 08/01/2024 5:44 PM EST Generic External Data Provider LAB BLOOD ORDERAB LES Final Result Performing Organization Address [facility] Co de Phone Number [facility] [address] [place] [phone] * (ABNORMAL) Prothrombin Time-INR (08/01/2024 5:41 PM EST) Prothrombin Time 10.3(L) 10.9 - 12.4 SEC [facility] INTERNATIONAL NORM RATIO 0.9 0.9 - 1.1 [facility] Comment:INTERNATIONAL NORMAL IZED RATIO (INR) REFERENCE RANGES Reference RangeFor patients not on anticoagulant therapy: 0.9 - 1.1INR ranges for oral anticoagulanttherapy:For prevention and treatment of venous thrombosis and pulmonary embolism: 2.0 - 3.0For acute myocardial infarction with aspirin therapy: 2.0 - 3.0For acute myocardial infarction without aspirin therapy: 3.0 - 4.0For patients with mechanical prosthetic heart valves: 2.5 - 3.5 08/01/2024 5:41 PM EST 08/01/2024 5:44 PM EST Generic External Data Provider LAB BLOOD ORDERAB LES Final Result Performing Organization Address [facility] Co de Phone Number [facility] [address] [place] [phone] * (ABNORMAL) Comprehensive Metabolic Panel (08/01/2024 5:41 PM EST) Sodium 141 135 - 145 mmol/L [facility] Potassium 3.9 3.3 - 5.1 mmol/L [facility] Chloride 107 96 - 108 mmol/L [facility] Carbon Dioxide 28 22 - 29 mmol/L [facility] Anion Gap 10(L) 12 - 20 [facility] Urea Nitrogen (BUN) 16 9 - 16 mg/dL [facility] Creatinine, Serum 0.90 0.5 - 1.4 mg/dL [facility] Creatinine Clr Calc Pharmacy 64.1 [facility] Comment:Provided height and weight: 157.48 cm,70.307 kg.eGFR (calculated from the MDRD study equation) and eCrCl(calculated from the Cockcroft-Gault equation) are based ondifferent parameters and may not yield comparable results.If eCrCl result is absurd, please check patient'sheight/weight. Estimated Glomerular Filt Rate >60 [facility] Comment:Chronic Kidney Disea se: Estimated GFR < 60 mL/min/1.92c4Gbnswv Kidney Disease: Estimated GFR < 15 mL/min/1.73m2 Glucose 105 60 - 115 mg/dL [facility] Calcium 8.7 8.4 - 10.2 mg/dL [facility] Bilirubin, Total 0.6 0.0 - 1.0 mg/dL [facility] Aspartate Amino Transferase 30 5 - 31 U/L [facility] Alanine Aminotransferase 28 0 - 31 U/L [facility] Total Protein 7.6 6.5 - 8.0 g/dL [facility] Albumin Level 4.2 3.5 - 5.0 g/dL [facility] Alkaline Phosphatase 152(H) 39 - 117 U/L [facility] 08/01/2024 5:41 PM EST 08/01/2024 5:44 PM EST us Generic External Data Provider LAB BLOOD ORDERAB LES Final Result [facility] [address] [place] [phone] [phone] * XR CERVICAL SPINE 3V (08/01/2024 2:53 PM EST) Anatomical Region Laterality Modality Abdomen Radiographic Rosalie ging 08/01/2024 2:53 PM EST Narrative 08/01/2024 5:01 PM EST ? [facility] ?[address] ?[place] [address] ?XRay Report ? Signed ? Patient: Semidey,Arianna ?MR#: [id number] ? : 1970 ?Acct:[id number] ? Age/Sex: 54 / F ?ADM Date: 08/01/24 ? Loc: HO.ED ? Attending Dr: ? Ordering Physician: Saida Golden ?? Date of Service: 08/01/24 ?? Procedure(s): XR cervical spine 3V ?? Accession Number(s): [id number] ? cc: Saida Golden; YESICA FLORES NP ? EXAMINATION: ?? XR CERVICAL SPINE ? CLINICAL INFORMATION: ?? neck pain ? COMPARISON: ?? Cervical spine March 23, 2023 ? TECHNIQUE: ?? 3 views of the cervical spine were obtained. ? FINDINGS: ?? No acute abnormality. No fracture. No subluxation. No prevertebral soft ?? tissue swelling. ?? Degenerative disc height narrowing and vertebral endplate spurs ?? anteriorly C5-C6. The remainder of the disc heights are normal. Facet ?? joints are normal. ? XR/XR cervical spine 3V ?? IMPRESSION: ?? 1. ??No acute abnormality. ?? 2. ??Degenerative disc disease C5-C6. ? Electronically signed by: ??Hari Espinal MD ??08/01/2024 04:59 PM EST RP ? Dictated By: ?Arose,Hari BERRY ? Signed By: ?<Electronically signed by Hari Espinal MD in OV> ?08/01/24 1659 ? DD/ 1453 ? TD/TT: 08/01/24 1537 ? Third Grade Teacher: BA ? Procedure Note Tayler Stuart - 08/01/2024 [place] [phone] [place] [address] XRay Report Signed Patient: Kendrick NicoleEvieR#: [id number] : 1970Acct:[id number] Age/Sex: 54 / FADM Date: 08/01/24 Loc: HO.ED Attending Dr: Ordering Physician: Saida Golden Date of Service: 08/01/24 Procedure(s): XR cervical spine 3V Accession Number(s): [id number] cc: Saida Golden; YESICA FLORES NP EXAMINATION: XR CERVICAL SPINE CLINICAL INFORMATION: neck pain COMPARISON: Cervical spine March 23, 2023 TECHNIQUE: 3 views of the cervical spine were obtained. FINDINGS: No acute abnormality. No fracture. No subluxation. No prevertebral soft tissue swelling. Degenerative disc height narrowing and vertebral endplate spurs anteriorly C5-C6. The remainder of the disc heights are normal. Facet joints are normal. XR/XR cervical spine 3V IMPRESSION: 1. No acute abnormality. 2. Degenerative disc disease C5-C6. Electronically signed by: Hari Espinal MD 08/01/2024 04:59 PM EST RP Dictated By: Hari Espinal MD Signed By: <Electronically signed by Hari Espinal MD in OV> 08/01/24 1659 DD/ 1453 TD/TT: 08/01/24 1537 Third Grade Teacher: ERIKA [facility] External Provider IMG XR PROCEDURES Edited Result - Final * XR Shoulder 2+ Views Left (08/01/2024 2:53 PM EST) Anatomical Region Laterality Modality Upper Extremities, Shoulder Left Radi ographic Imaging 08/01/2024 2:53 PM EST Narrative 08/01/2024 4:37 PM EST ? [facility] ?[address] ?[place] [address] ?XRay Report ? Signed ? Patient: Semidey,Arianna ?MR#: [id number] ? : 1970 ?Acct:[id number] ? Age/Sex: 54 / F ?ADM Date: 12/16/24 ? Loc: HO.ED ? Attending Dr: ? Ordering Physician: Saida Golden ?? Date of Service: 08/01/24 ?? Procedure(s): XR shoulder LT min 2V ?? Accession Number(s): [id number] ? cc: Saida Golden; YESICA FLORES NP ? EXAMINATION: ?? XR SHOULDER, LEFT ? CLINICAL INFORMATION: ?? pain ? COMPARISON: ?? None available. ? TECHNIQUE: ?? AP external rotation, Grashey, scapular Y, and axillary views of the ?? left shoulder. ? FINDINGS: ?? No fracture, dislocation, or suspicious bone lesion. Normal bone ?? mineralization. Normal alignment. ?? Very mild degenerative arthritis of the glenohumeral joint, which is ?? normally aligned. ?? Mild arthritis in the AC joint, which is normally aligned. There is ?? predominantly superior surface spurring with no undersurface spurring. ?? There is a neutral lateral acromion. The subacromial space is preserved. ? Remainder the bony and soft tissue structures appear normal. ? XR/XR shoulder LT min 2V ?? IMPRESSION: ?? 1. No acute findings left shoulder. ?? 2. Very mild degenerative arthritis glenohumeral joint and AC joint. ? Electronically signed by: ??Teofilo Barillas MD ??08/01/2024 04:35 PM EST RP ? Dictated By: ?Teofilo Barillas MD ? Signed By: ?<Electronically signed by Teofilo Barillas MD in OV> ?08/01/24 1635 ? DD/ 1453 ? TD/TT: 08/01/24 1537 ? Third Grade Teacher: ? Procedure Note Tayler Stuart - 08/01/[address] [address] XRay Report Signed Patient: Beto NicoleR#: [id number] : 1970Acct:[id number] Age/Sex: 54 / FADM Date: 08/01/24 Loc: HO.ED Attending Dr: Ordering Physician: Saida Golden Date of Service: 08/01/24 Procedure(s): XR shoulder LT min 2V Accession Number(s): [id number] cc: Saida Golden; YESICA FLORES NP EXAMINATION: XR SHOULDER, LEFT CLINICAL INFORMATION: pain COMPARISON: None available. TECHNIQUE: AP external rotation, Grashey, scapular Y, and axillary views of the left shoulder. FINDINGS: No fracture, dislocation, or suspicious bone lesion. Normal bone mineralization. Normal alignment. Very mild degenerative arthritis of the glenohumeral joint, which is normally aligned. Mild arthritis in the AC joint, which is normally aligned. There is predominantly superior surface spurring with no undersurface spurring. There is a neutral lateral acromion. The subacromial space is preserved. Remainder the bony and soft tissue structures appear normal. XR/XR shoulder LT min 2V IMPRESSION: 1. No acute findings left shoulder. 2. Very mild degenerative arthritis glenohumeral joint and AC joint. Electronically signed by: Teofilo Barillas MD 08/01/2024 04:35 PM EST RP Dictated By: Teofilo Barillas MD Signed By: <Electronically signed by Teofilo Barillas MD in OV> 08/01/24 1635 DD/ 1453 TD/TT: 08/01/24 1537 Third Grade Teacher: [facility] External Provider IMG XR PROCEDURES Edited Result - Final * (ABNORMAL) TSH (07/15/2024 2:39 PM EST) Pathologist [facility] Thyroid Stimulating Hormone 9.97(H) 0.32 - 4.0 uIU/mL [facility] Comment:Note: A sustained TS H level above 2.5 uIU/mL may warrant further investigation. TSH 3rd Generation ([facility]) 07/15/2024 2:39 PM EST 07/15/2024 3:15 PM EST Generic External Data Provider LAB BLOOD ORDERAB LES Final Result [facility] [address] [place] [phone] * T4, Free (07/15/2024 2:39 PM EST) Free T4 (Free Thyroxine) 1.05 0.71 - 1.85 ng/dL [facility] 07/15/2024 2:39 PM EST 07/15/2024 3:15 PM EST us Generic External Data Provider LAB BLOOD ORDERAB LES Final Result [facility] [address] [facility] [place] [address] [phone] * BI Mammogram Screening Tomosynthesis Bilateral (02/08/2024 2:28 PM EDT) Anatomical Region Laterality Modality Breast Bilateral Mammography 02/08/2024 2:28 PM EDT Narrative 02/08/2024 4:44 PM EDT ? [facility] ? [address] ?[place] [address] ? Mammography Report ? Signed ? Patient: Semidey,Arianna ?MR#: [id number] ? : 1970 ?Acct:[id number] ? Age/Sex: 53 / F ?ADM Date: 02/08/24 ? Loc: HO.MAMMO ? Attending Dr: Yesica Flores DIRECTOR [employer]ING ? Ordering Physician: SANDRA,YESICA COLON ?Results: 1Negative ? Date of Service: 02/08/24 ?Follow Up: 1 Year From Orig ?? inal Mammogram ? Procedure(s): MM tomosynthesis screening BI ?? Accession Number(s): [id number] ? cc: YESICA FLORES NP ? EXAMINATION: ?? MM SCREENING DIGITAL BREAST TOMOSYNTHESIS, BILATERAL ? CLINICAL INFORMATION: ? Screening. Asymptomatic. ? COMPARISON: ?? Mammography: This study is compared with prior exams dating back to ?? 2019. ? TECHNIQUE: ?? Digital breast tomosynthesis is performed in both the craniocaudal and ?? mediolateral oblique views along with computer-aided detection (CAD). ?? Synthesized 2D images are generated from the tomosynthesis. ? FINDINGS: ?? The breasts are heterogeneously dense, which may obscure small masses ?? (ACR BI-RADS breast composition Category c). ? There are no significant masses, abnormal calcifications, or other ?? abnormalities. ? MM/MM tomosynthesis screening BI ?? IMPRESSION: ?? No mammographic evidence of malignancy. ? ASSESSMENT: ? BI-RADS BI-RADS 1 - Negative ? RECOMMENDATION: ?? Routine annual mammography screening. ? 1 year F/U ? This examination should not preclude the clinical evaluation of a ?? suspicious palpable abnormality. ? This patient's information was entered into a reminder system with a ?? target due date for their next mammogram. ? Dictated By: ?Nivia Nathan MD ? Signed By: ?<Electronically signed by Nivia Nathan MD in OV> ? 02/08/24 1640 ? DD/ 1428 ? TD/TT: ? Third Grade Teacher: ? Procedure Note Tayler Stuart - 02/08/2024 [facility] [address] [place], [place] [address] Mammography Report Signed Patient: Beto NicoleR#: [id number] : 1970Acct:[id number] Age/Sex: 53 / FADM Date: 02/08/24 Loc: KE[facility] Attending Dr: Yesica Flores DIRECTOR [employer] Ordering Physician: YESICA FLORESesults: 1Negative Date of Service: 02/08/24Follow Up: 1 Year From Orig inal Mammogram Procedure(s): MM tomosynthesis screening BI Accession Number(s): [id number] cc: YESICA FLORES NP EXAMINATION: MM SCREENING DIGITAL BREAST TOMOSYNTHESIS, BILATERAL CLINICAL INFORMATION: Screening. Asymptomatic. COMPARISON: Mammography: This study is compared with prior exams dating back to 2019. TECHNIQUE: Digital breast tomosynthesis is performed in both the craniocaudal and mediolateral oblique views along with computer-aided detection (CAD). Synthesized 2D images are generated from the tomosynthesis. FINDINGS: The breasts are heterogeneously dense, which may obscure small masses (ACR BI-RADS breast composition Category c). There are no significant masses, abnormal calcifications, or other abnormalities. MM/MM tomosynthesis screening BI IMPRESSION: No mammographic evidence of malignancy. ASSESSMENT: BI-RADS BI-RADS 1 - Negative RECOMMENDATION: Routine annual mammography screening. 1 year F/U This examination should not preclude the clinical evaluation of a suspicious palpable abnormality. This patient's information was entered into a reminder system with a target due date for their next mammogram. Dictated By: Nivia Nathan MD Signed By: <Electronically signed by Nivia Nathan MD in OV> 02/08/24 1640 DD/ 1428 TD/TT: Third Grade Teacher: Yesica [facility] BI PROCEDURES Final Result * HIV-1/2 Antigen and Antibodies, Fourth Generation, with Reflexes (10/03/2022 9:03 AM EST) HIV Antigen/Antibody, 4th Generation NON-REAC TIVE NON-REAC TIVE [facility] Comment: HIV-1 antigen and HIV-1/HIV-2 antibodies were not detected. There is no laboratory evidence of HIV infection. PLEASE NOTE: This information has been disclosed to you from records whose confidentiality may be protected by state law. ??If your state requires such protection, then the state law prohibits you from making any further disclosure of the information without the specific written consent of the person to whom it pertains, or as otherwise permitted by law. A general authorization for the release of medical or other information is NOT sufficient for this purpose. ?? For additional information please refer to http://education.[employer]/faq/CSY635 (This link is being provided for informational/ educational purposes only.) The performance of this assay has not been clinically validated in patients less than 2 years old. Blood Venous blood specimen / Unknown 10/03/2022 9:03 AM EST 10/03/2022 9:04 AM EST Narrative [facility] - 10/07/2022 3:43 PM EST FASTING:YES FASTING: YES Formerly [facility] LAB BLOOD ORDERABLES Final Resul t [employer] [address] [place] [address], [facility], [place] [address] [facility] [employer] [address] [place] [address], (Nl2) [place] [address] * THINPREP TIS PAP AND HPV mRNA E6/E7 WITH REFLEX TO HPV 16,18/45 (11/20/2021 9:08 AM EDT) Clinical Information: None given [facility] COMMENT SEE COMMENT [facility] Comment: EXPLANATORY NOTE: ? The Pap is a screening test for cervical cancer. It is ?? not a diagnostic test and is subject to false negative ?? and false positive results. It is most reliable when a ?? satisfactory sample, regularly obtained, is submitted ?? with relevant clinical findings and history, and when ?? the Pap result is evaluated along with historic and ?? current clinical information. ?? COMMENT: This Pap test has been evaluated with computer assisted technology. [employer] SYSTEM French Folder: SEE COMMENT [facility] Comment: CMG, CT(ASCP) CT screening location: [address] ??[address] HPV nRNA E6/E7 Not Detected Not Detected [facility] Comment: Methodology: Manager Web-Mediated Amplification This assay detects E6/E7 viral messenger RNA (mRNA) from 14 high-risk HPV types (16,18,31,33,35,39,45,51,52,56,58,59,66,68). ? The analytical performance characteristics of this assay have been determined by [facility]. The modifications have not been cleared or approved by the FDA. This assay has been validated pursuant to the CLIA regulations and is used for clinical purposes. ?? For additional information, please refer to http://education.[employer]/faq/GGA305u2 (This link if provided for information/ educational purposes only.) Interpretation/Re sult: Negative for intraepithelial lesion or malignancy. [facility] LMP: 2,020 [facility] Prev. BX: NONE [facility] Prev. PAP: 12/2015 [facility] SOURCE: [facility] Statement Of Adequacy: SEE COMMENT [facility] Comment: Satisfactory for evaluation. Endocervical/transformation zone component present. Partially obscuring inflammation 11/20/2021 9:08 AM EDT Eryn Presley CNM LAB PATHOLOGY ORDERABLES Final Result [facility] [address] * (ABNORMAL) Colonoscopy (05/20/2019) Colonoscopy Abnormal(A ) Normal 05/20/2019 Jesu Pa MD HEALTH MAINTENANCE Final Res ult from Last 3 Months or Most Recently Relevant to Health Maintenance Insurance [facility] C3 HSN FULL Care Teams Nocturnist Relationship Specialty Start Date End Date Yesica Flores ANP [address] [place] [id number] PCP - General Family Medicine 04/16/20
--- OUTSIDE RECORDS SUMMARY | 2024-10-11 19:49 | XMS_ITS | Encounter Summary ---
Author Organization [employer] Address [address] [place] [address] [address] [place] [address] Care Team Providers Care Senior Counsel Commercial Name Role Phone Adeline Faustin Primary Care Provider [phone] Reason for Visit * Reason Onset Date Comments PT-1 09/06/2024 Encounter Details Date Type Department Care Team ([facility] st Contact Info) Description 09/06/2024 Telephone [facility] [address] [place] [address] Adeline Faustin ANP [address] [place], [place] [phone] PT-1 Social History Tobacco Use Types Packs/Day Years [...] encounter Miscellaneous Notes * Telephone Encounter - Yvan Marquez - 09/06/2024 9:00 AM EST Patient calling requesting PT1 Home Address verified: Y/N: Yes Provider name or facility name: [address] [place] [id number] Escort needed: Y/N: Yes Do you have a wheelchair: Y/N: No If yes- Manual or electric: N/A Visits: (amount of visits) ( x monthly, weekly, daily) 5 times a week documented in this encounter Plan of Treatment Upcoming Encounters Date Type Department Care Team (Late st Contact Info) Description 11/25/2024 11:15 AM EDT Office Visit [facility] [address] [place] [address] Adeline Faustin ANP [address] [place] [address] documented as of this encounter Visit Diagnoses Not on filedocumented in this encounter Additional Health Concerns Assessment Noted Time PHQ-9 Depression Total Score: 0 11/12/19 24 10:07 AM EDT documented as of this encounter Care Teams Senior Counsel Commercial Relationship Specialty Start Date End Date Adeline Faustin ANP [address] [place] [address] PCP - General Family Medicine 04/16/20 documented as of this encounter
== END 2024-10-11 16:37 | disposition home or self-care (01) ==
LOC: HO.CT 16:36
PROVIDERS: PCP Nurse Practitioner Primary Care; Visit Provider Nurse Practitioner Primary Care
DX: M54.2 Cervicalgia (principal); M79.602 Pain in left arm; G89.29 Other chronic pain
CPT/HCPCS: 72125

== ENCOUNTER → 2024-10-11 16:38 | Outpatient (BNV) | payer MEDICAID, SELFPAY | PROVIDERS: PCP Nurse Practitioner Primary Care; Visit Provider Radiology Diagnostic Radiology | DX: M47.812 Spondylosis without myelopathy or radiculopathy, cervical region (principal) | CPT/HCPCS: 72125 ==

== ENCOUNTER 2024-10-13 12:00 | Outpatient (RCR) | payer MEDICAID, SELFPAY | END 2024-11-10 10:20 | disposition home or self-care (01) | LOC: HO.PT 12:00 | PROVIDERS: PCP Nurse Practitioner Primary Care; Visit Provider Nurse Practitioner Primary Care | DX: M54.2 Cervicalgia (principal); M79.602 Pain in left arm; G89.29 Other chronic pain | CPT/HCPCS: 97012; 97110; 97140; 97162 ==

== ENCOUNTER 2025-01-20 10:19 | Outpatient (AMB) | payer MEDICAID, SELFPAY ==
--- NOTE | 2025-01-20 08:05 | MHC.OFFVIS ---
Intake Visit Reasons: LDCT Allergies No Known Allergies Allergy (Verified 08/01/24 14:49) HPI HPI LDCT: Details: Initial visit for this 54yo former smoker with a 35PYH. Patient started smoking at age 14 for 37 years at 1ppd. She quit in 2021. . Denies marijuana use. Denies second hand smoke exposure. Denies exposure to chemicals or substances like asbestos. . Denies known family history of lung cancer. Denies personal history of cancers. Denies chest CT in last year. . Denies recent travel outside the [place]. Denies recent respiratory illness or recent hospitalization for respiratory issues. History of testing positive for COVID. Admits receiving COVID Vaccine. . Denies fever, chills, new/worsening cough, hemoptysis, hoarseness or dysphagia. Denies significant chest pain, significant dyspnea or unintentional weight loss. Patient Lung Cancer Screening Questionnaire reviewed with patient by provider. . Shared Decision Making Completed. Patient meets criteria. Discussed in detail with patient, the risk vs benefit of LDCT screening. Patient consents to proceed with scan. Discussed and encouraged continued smoking cessation. [facility] Medical History (Updated 12/15/24 @ 14:42 by Sunshine Garza PA-C) Tubular adenoma of colon Personal history of nicotine dependence Hyperplastic colon polyp Hypothyroidism Midline back pain Diffuse cystic mastopathy of both breasts Poor vision Depression Anxiety Vitamin B 12 deficiency Vitamin D deficiency Surgical History (Updated 12/15/24 @ 14:42 by Sunshine Garza PA-C) History of tubal ligation History of carpal tunnel release of both wrists (~2021) History of colonoscopy Family History Mother Diabetes Leukemia Social History (Updated 01/20/25 @ 10:24 by Sunshine Garza PA-C) Alcohol intake: current Alcohol intake frequency: holidays/special occasions only Patient Tobacco Use Status: Former Tobacco user Tobacco use type: Cigarette Years Smoked: (onset 14yo, 1ppd x 37yrs, 35pyh, quit 2021) Current occupational status: employed 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 - Patient meets criteria for LDCT for lung cancer screening purposes and is asymptomatic. - Smoking cessation counseling offered. Patients can always call [phone]. - Will arrange for a LDCT scan of the chest for screening purposes at [facility]. - Risks, benefits, and alternatives were discussed in detail and the patient agrees to proceed. - Risks discussed include but are not limited to: radiation exposure, anxiety during testing and while awaiting results, false negatives, false positives and possibility of additional intervention such as further imaging or surgical procedures for benign disease. - Benefits are obviously detection of lung cancer at an early stage which can lead to improved outcomes. - Discussed the importance of screening program compliance with adherence to yearly LDCT scan as scheduled - or sooner interval scans for personalized screening regimen. - Discussed follow up plan. Our office will send a letter discussing results and if needed set up phone call and office visit based on CT findings. - Patient educated on results categorization and the management decisions for suspicious findings potentially found on the screening LDCT scan. Any patient with a Lung RADS score of 3 or 4 will be reviewed by a multidisciplinary team at [facility] to form a plan of action in regards to scan findings. - If further work up is warranted for a suspicious lung finding this will be followed by the Lung Cancer Screening program in conjunction with the Thoracic Surgery Department at [facility]. - A copy of the office note and LDCT will be sent to the patient's PCP - as well as documentation on any associated further plans of care. - Incidental findings on LDCT are the PCP's responsibility. These findings are indicated with an S finding on the LDCT Assessment. A note discussing the findings will be sent to the PCP who is then responsible for further management. - All questions answered.? Coding Level of Care Code Lung Cancer Screening G0296 Diagnoses Personal history of nicotine dependence Z87.897
== END 2025-01-20 10:42 | disposition home or self-care (01) ==
LOC: HO.HPS 10:19
PROVIDERS: PCP Nurse Practitioner Primary Care; Referring Provider Nurse Practitioner Primary Care; Visit Provider Physician Assistant Medical
DX: Z87.891 Personal history of nicotine dependence (principal)
CPT/HCPCS: G0296

== ENCOUNTER 2025-01-20 10:26 | Outpatient (REF) | payer MEDICAID, SELFPAY ==
--- NOTE | ~2025-01-20 | CT_ITS ---
CLINICAL HISTORY: Z87.891 - Personal history of nicotine dependence CT lung cancer screening (LDCT) Comparison: None Technique: Axial CT images of the chest using low-dose technique. Referring provider counseled the patient on shared decision-making for LDCT screening. Additional counseling was provided on smoking cessation. Effective radiation dose total: DLP 40.4 mGycm, CTDIvol 1.5 mGy. Findings: There is a calcified granuloma in the right lower lobe. There is a 2.5 mm nodule in the left lower lobe best seen on image number 54 of series number 5. No other nodules are identified. There are no coronary artery calcifications. Limited upper abdomen: Unremarkable Other: None Impression: LungRADS 2 - Benign Appearance: Continue annual screening with low dose Chest CT in 12 months. ##L2# Category 1: Normal; continue annual screening Category 2: Benign appearance or behavior, continue annual screening Category 3: Probably benign, [address] recommended Category 4A: Suspicious, [address] recommended; may consider PET/CT Category 4B: Suspicious, Additional diagnostics and/or tissue sampling recommended Category 4X: Suspicious, Additional diagnostics and/or tissue sampling recommended Category 0: Recalls (incomplete screen due to Incomplete coverage, Noise, Respiratory motion, Expiration, Obscured by acute abnormality) This document has been electronically signed by: Ugo Whitaker MD on 01/20/2025 11:43:31
--- OUTSIDE RECORDS SUMMARY | 2025-01-20 11:12 | XMS_ITS | Encounter Summary ---
Author Organization [employer] Address [address] [facility] [address] [place] [address] Care Team Providers Care Medical Stenographer Name Role Phone Adeline Faustin Primary Care Provider [phone] Reason for Visit * Reason Onset Date Comments PT-1 09/06/2024 Encounter Details Date Type Department Care Team ([facility] st Contact Info) Description 09/06/2024 Telephone [facility] [address] [place], [place] [phone] Adeline Faustin ANP [address] [place], [place] [phone] PT-1 Social History Tobacco Use Types Packs/Day [...] Y/N: Yes Provider name or facility name: [address] [place] [address] Escort needed: Y/N: Yes Do you have a wheelchair: Y/N: No If yes- Manual or electric: N/A Visits: (amount of visits) ( x monthly, weekly, daily) 5 times a week documented in this encounter Plan of Treatment Not on file documented as of this encounter Visit Diagnoses Not on filedocumented in this encounter Additional Health Concerns Assessment Noted Time PHQ-9 Depression Total Score: 0 11/12/19 24 10:07 AM EDT documented as of this encounter Care Teams Medical Stenographer Relationship Specialty Start Date End Date Adeline Faustin ANP [address] [place] [address] PCP - General Family Medicine 04/16/20 documented as of this encounter
== END 2025-01-20 10:27 | disposition home or self-care (01) ==
LOC: HO.CT 10:26
PROVIDERS: PCP Nurse Practitioner Primary Care; Visit Provider Physician Assistant Medical
DX: Z12.2 Encounter for screening for malignant neoplasm of respiratory organs (principal); Z87.891 Personal history of nicotine dependence
CPT/HCPCS: 71271; G0296

== ENCOUNTER → 2025-01-20 10:27 | Outpatient (BNV) | payer MEDICAID, SELFPAY | PROVIDERS: PCP Nurse Practitioner Primary Care; Visit Provider Radiology Diagnostic Radiology | DX: Z12.2 Encounter for screening for malignant neoplasm of respiratory organs (principal); Z87.891 Personal history of nicotine dependence | CPT/HCPCS: 71271 ==

== ENCOUNTER 2025-03-10 14:59 | Outpatient (REF) | payer MEDICAID, SELFPAY | END 2025-03-10 15:00 | disposition home or self-care (01) | LOC: HO.MAMMO 14:59 | PROVIDERS: PCP Nurse Practitioner Primary Care; Visit Provider Nurse Practitioner Primary Care | DX: Z12.31 Encounter for screening mammogram for malignant neoplasm of breast (principal) | CPT/HCPCS: 77063; 77067 ==

== ENCOUNTER → 2025-03-10 15:30 | Outpatient (BNV) | payer MEDICAID, SELFPAY | PROVIDERS: PCP Nurse Practitioner Primary Care; Visit Provider Internal Medicine | DX: Z12.31 Encounter for screening mammogram for malignant neoplasm of breast (principal) | CPT/HCPCS: 77063; 77067 ==

== ENCOUNTER 2025-05-05 15:00 | Outpatient (REF) | payer MEDICAID, SELFPAY ==
--- OUTSIDE RECORDS SUMMARY | 2025-05-04 14:30 | XMS_ITS | Encounter Summary ---
Author Organization [employer] [facility] Address [address] [place] [address] 7t [place] [address] Care Team Providers Care Executive Community Planning Name Role Phone Adeline Faustin Primary Care Provider [phone] Reason for Referral * Hospital - Outpatient (Routine) - Authorized Specialty Diagnoses / Procedures Referred By Dimple holley Referred To Contact Diagnoses Excessive daytime sleepiness Procedures Polysomnography Adeline Faustin ANP [address] [place] [address] Phone: tel: fax: [address] Phone: tel: fax: Referral ID Status Reason Start Date Expiration Date V isits Requested Visits Authorized [id number] Authorized 05/04/2025 05/04/2026 1 1 Reason for Visit * Reason Comments Follow-up Chronic condition Encounter Details Date Type Department Care Team (Latest Contact Info) Description 05/04/2025 2:30 PM EDT Office Visit [facility] MEDICINE [address] [place], [place] [phone] Adeline Faustin ANP [address] [place] [address] Acquired hypothyroidism (Primary Dx); Vasomotor symptoms due [...] TSH 9.97 (H) 07/15/2024 Ora MORATAYA provided Kyrgyz interpretation. Review of Systems Constitutional: Positive for [...] Type Priority Associated Diagnoses Orde r Schedule CBC auto differential Lab Routine Fatigue, unspecified type Expected: 05/04/2025 (Approximate), Expires: 05/04/2026 TSH W/Reflex to FT4 Lab Routine Fatigue, unspecified type Expected: 05/04/2025 (Approximate), Expires: 05/04/2026 Vitamin B12 Lab Routine Fatigue, unspecified type Expected: 05/04/2025 (Approximate), Expires: 05/04/2026 XR Knee 3 Views Left Imaging Routine Bilateral anterior knee pain Expected: 05/04/2025, Expires: 05/04/2026 XR Knee 3 Views Right Imaging Routine Bilateral anterior knee pain Expected: 05/04/2025, Expires: 05/04/2026 Basic Metabolic Panel Lab Routine Fatigue, unspecified type Expected: 05/04/2025 (Approximate), Expires: 05/04/2026 Hemoglobin A1c Lab Routine Fatigue, unspecified type Expected: 05/04/2025 (Approximate), Expires: 05/04/2026 Polysomnography Sleep Center Routine Excessive daytime sleepiness Expected: 05/04/2025 (Approximate), Expires: 05/04/2026 documented as of this encounter Visit Diagnoses Diagnosis Acquired hypothyroidism- Primary Unspecified hypothyroidism Vasomotor symptoms due to menopause Bilateral anterior knee pain Fatigue, unspecified type Mixed anxiety and depressive disorder Dysthymic disorder Excessive daytime sleepiness documented in this encounter Additional Health Concerns Assessment Noted Time PHQ-9 Depression Total Score: 0 11/26/19 25 10:56 AM EDT documented as of this encounter Care Teams Executive Community Planning Relationship Specialty Start Date End Date Adeline Faustin ANP [address] [place] [address] PCP - General Family Medicine 04/16/20 documented as of this encounter
--- OUTSIDE RECORDS SUMMARY | 2025-05-05 15:03 | XMS_ITS | Encounter Summary ---
Author Organization [employer] [facility] Address [address] [facility] 7t [place] [address] Care Team Providers Care Mechanism Assembler Name Role Phone Adeline Faustin Primary Care Provider [phone] Encounter Details Date Type Department Care Team (Latest Contact Info) Description 07/01/2019 Abstract [facility] CONVERSIONS Dental, Provider, DDS Social History [...] as of this encounter Plan of Treatment Not on file documented as of this encounter Visit Diagnoses Not on filedocumented in this encounter Care Teams Mechanism Assembler Relationship Specialty Start Date End Date Adeline Faustin ANP [address] [place] [phone] PCP - General Family Medicine 04/16/20 documented as of this encounter
--- OUTSIDE RECORDS SUMMARY | 2025-05-05 15:03 | XMS_ITS | Encounter Summary ---
Author Organization [employer] Address [address] [facility] [address] [place] [address] Care Team Providers Care Regroover Name Role Phone Adeline Faustin Primary Care Provider [phone] Encounter Details Date Type Department Care Team (Latest Contact Info) Description 05/04/2025 Travel Social History Tobacco Use Types Packs/Day Years [...] AM EDT documented as of this encounter Functional Status * Over the [...] Trouble relaxing 3 05/04/2025 3:16 PM EDT R Ora paredes [place] Being so restless that it is [...] Quintana MA documented as of this encounter Plan of Treatment Not on file documented as of this encounter Visit Diagnoses Not on filedocumented in this encounter Additional Health Concerns Assessment Noted Time PHQ-9 Depression Total Score: 0 11/26/19 25 10:56 AM EDT documented as of this encounter Care Teams Regroover Relationship Specialty Start Date End Date Adeline Faustin, ANP [address] [place] [id number] PCP - General Family Medicine 04/16/20 documented as of this encounter
--- OUTSIDE RECORDS SUMMARY | 2025-05-05 15:03 | XMS_ITS | Encounter Summary ---
Author Organization [employer] [facility] Address [address] [facility] 7t [place] [address] Care Team Providers Care Registrar Museum Name Role Phone Adeline Faustin Primary Care Provider [phone] Encounter Details Date Type Department Care Team (Latest Contact Info) Description 08/13/2020 Abstract [facility] CONVERSIONS Dental, Provider, DDS Social History Tobacco [...] on filedocumented in this encounter Care Teams Registrar Museum Relationship Specialty Start Date End Date Adeline Faustin ANP [address] [place] [phone] PCP - General Family Medicine 04/16/20 documented as of this encounter
--- OUTSIDE RECORDS SUMMARY | 2025-05-05 15:03 | XMS_ITS | Encounter Summary ---
Author Organization [employer] Address [address] [facility] 7t [place] [address] Care Team Providers Care Content Director Name Role Phone Adeline Faustin Primary Care Provider [phone] Reason for Visit * Reason Onset Date Comments Pt1 02/02/2024 Encounter Details Date Type Department Care Team ([facility] st Contact Info) Description 02/02/2024 Telephone [facility] MEDICINE [address] [place] [address] Adeline Faustin ANP [address] [place], [place] [phone] Pt1 Social History Tobacco Use Types Packs/Day [...] Y/N: Yes Provider name or facility name: [facility] : [facility] Facility Address: [address] [place] [address] [place] [address] Escort needed: Y/N: No Do you have [...] documented as of this encounter Care Teams Content Director Relationship Specialty Start Date End Date Adeline Faustin ANP [address] [place] [address] [place] [address] PCP - General Family Medicine 04/16/20 documented as of this encounter
--- OUTSIDE RECORDS SUMMARY | 2025-05-05 15:03 | XMS_ITS | Encounter Summary ---
Author Organization [employer] Address [address] [facility] 7t [place] [address] Care Team Providers Care Animal Nutritionist Name Role Phone Adeline Faustin Primary Care Provider [phone] Reason for Visit * Reason Onset Date Comments chat prep 05/03/2025 Encounter Details Date Type Department Care Team ([facility] st Contact Info) Description 05/03/2025 Telephone [facility] MEDICINE [address] [place] [address] Adeline Faustin ANP [address] [place], [place] [phone] chat prep Social History Tobacco Use Types Packs/Day Years [...] encounter Miscellaneous Notes * Telephone Encounter - Ora Quintana [place] - 05/03/2025 12:13 PM EDT Chart Prep Labs: done Images: done Referrals: complete Vaccines due: Covid, Flu, and Hep B Screenings: not applicable Overdue care gaps: GILBERT-7 and Disability screen documented in this encounter Plan of Treatment Not on file documented as of this encounter Visit Diagnoses Not on filedocumented in this encounter Additional Health Concerns Assessment Noted Time PHQ-9 Depression Total Score: 0 11/26/19 25 10:56 AM EDT documented as of this encounter Care Teams Animal Nutritionist Relationship Specialty Start Date End Date Adeline Faustin ANP [address] [place] [phone] PCP - General Family Medicine 04/16/20 documented as of this encounter
--- OUTSIDE RECORDS SUMMARY | 2025-05-05 15:03 | XMS_ITS | Encounter Summary ---
Author Organization [facility] Address [address] [place] [address] 7t [place] [address] Care Team Providers Care Process Safety Specialist Name Role Phone Adeline Faustin PAULETTE Primary Care Provider [phone] Encounter Details Date Type Department Care Team (Late st Contact Info) Description 09/11/2022 Orders Only [facility] MEDICINE [address] [place] [address] Debbie De La Paz FNP [address] [place] [address] Pain of right lower extremity (Primary Dx) [...] as of this encounter Plan of Treatment Scheduled Orders Name Type Priority Associated Diagnoses Orde r Schedule XR Foot 3+ Views Right Imaging Routine Pain of right lower extremity Expected: 09/11/2022, Expires: 09/11/2023 documented as of this encounter Visit Diagnoses Diagnosis Pain of right lower extremity- Primary documented in this encounter Care Teams Process Safety Specialist Relationship Specialty Start Date End Date Adeline Faustin ANP [address] [place] [address] PCP - General Family Medicine 04/16/20 documented as of this encounter
--- OUTSIDE RECORDS SUMMARY | 2025-05-05 15:03 | XMS_ITS | Encounter Summary ---
Author Organization [employer] Address [address] [facility] 7t [place] [address] Care Team Providers Care Trim Operator Name Role Phone Adeline Faustin Primary Care Provider [phone] Reason for Visit * Reason Onset Date Comments Prior Authorization 04/28/2025 Encounter Details Date Type Department Care Team ([facility] st Contact Info) Description 04/28/[address] [facility] MEDICINE [address] [place] [address] Adeline Faustin ANP [address] [place], [place] [phone] Prior Authorization Social History Tobacco Use Types Packs/Day Years [...] encounter Miscellaneous Notes * Telephone Encounter - Kelley Heart - 05/02/2025 1:23 PM EDT Medication is prescribed by outside provider * Telephone Encounter - Jean Pierre rCuz - 04/28/2025 12:17 PM EDT Tc from pt requesting a PA for the medication levothyroxine (Synthroid, Levoxyl) 125 MCG tablet To be sent to insurance. Any questions contact pt at [phone] documented in this encounter Plan of Treatment Not on file documented as of this encounter Visit Diagnoses Not on filedocumented in this encounter Additional Health Concerns Assessment Noted Time PHQ-9 Depression Total Score: 0 11/26/19 25 10:56 AM EDT documented as of this encounter Care Teams Trim Operator Relationship Specialty Start Date End Date Adeline Faustin ANP [address] [place] [address] PCP - General Family Medicine 04/16/20 documented as of this encounter
--- OUTSIDE RECORDS SUMMARY | 2025-05-05 15:03 | XMS_ITS | Encounter Summary ---
Author Organization [facility] Address [address] [facility] 7t [place] [address] Care Team Providers Care Studio Sales Associate Name Role Phone Adeline Faustin Primary Care Provider [phone] Reason for Visit * Reason Onset Date Comments Change providers 12/17/2022 Encounter Details Date Type Department Care Team (Late st Contact Info) Description 12/17/2022 Telephone [facility] MEDICINE [address] [place] [address] Adeline Faustin ANP [address] [place], [place] [phone] Change providers Social History Tobacco Use Types [...] and that message will be sent to brake repair supervisor to call patient and tell who is accepting new patients. Patient advised in the mean time until she sees the new provider her current PCP will refill medications. RN ensured patienthad understanding of her medication and dosage changes that occurred recently with her TSH levels. Patient verbalized she understood instructions with medications and agrees with plan regarding transfer. Message forwarded to process improvement manager to call patient about transfer request. * Telephone Encounter - Barbara Larios - 12/17/2022 4:31 PM EDT Tc from pt requesting to switch providers due to a medication concern she is having regarding levothyroxine (Synthroid, Levoxyl) 150 MCG tablet .. ( pt was wrongly taking medication ) Please contact pt at [phone] Wolof Speaker documented in this encounter Plan of Treatment Not on file documented as of this encounter Visit Diagnoses Not on filedocumented in this encounter Care Teams Studio Sales Associate Relationship Specialty Start Date End Date Adeline Faustin ANP [address] [place] [address] PCP - General Family Medicine 04/16/20 documented as of this encounter
--- OUTSIDE RECORDS SUMMARY | 2025-05-05 15:03 | XMS_ITS | Encounter Summary ---
Author Organization [employer] Address [address] [facility] 7t [place] [address] Care Team Providers Care Personal Loan Specialist Name Role Phone Adeline Faustin Primary Care Provider [phone] Reason for Visit * Reason Onset Date Comments Med Refill 05/02/2025 Encounter Details Date Type Department Care Team (Late st Contact Info) Description 05/02/2025 Telephone [facility] MEDICINE 230 [place] [address] Adeline Faustin ANP [address] [place], [place] [phone] Med Refill Social History Tobacco Use Types Packs/Day Years [...] encounter Miscellaneous Notes * Telephone Encounter - Sahra Saleh LPN - 05/02/2025 10:21 AM EDT Medication is prescribed by outside provider * Telephone Encounter - Jean Pierre Cruz - 05/02/2025 10:16 AM EDT TC from pt requesting medication refill. Medications needing refill : levothyroxine (Synthroid, Levoxyl) 125 MCG tablet To be sent to: [id number] - [place], [place] - [address] [facility] documented in this encounter Plan of Treatment Not on file documented as of this encounter Visit Diagnoses Not on filedocumented in this encounter Additional Health Concerns Assessment Noted Time PHQ-9 Depression Total Score: 0 11/26/19 25 10:56 AM EDT documented as of this encounter Care Teams Personal Loan Specialist Relationship Specialty Start Date End Date Adeline Faustin ANP [address] [place] [address] PCP - General Family Medicine 04/16/20 documented as of this encounter
--- OUTSIDE RECORDS SUMMARY | 2025-05-05 15:03 | XMS_ITS | Encounter Summary ---
Author Organization [employer] Address [address] [facility] 7t [place] [address] Care Team Providers Care Flight Physician Name Role Phone Adeline Faustin Primary Care Provider [phone] Reason for Visit * Reason Onset Date Comments PT-1 09/06/2024 Encounter Details Date Type Department Care Team ([facility] st Contact Info) Description 09/06/2024 Telephone [facility] MEDICINE [address] [place], [place] [phone] Adeline Faustin ANP [address] [place], [place] [phone] PT-1 Social History Tobacco Use Types Packs/Day [...] Y/N: Yes Provider name or facility name: [address] [place] [address] Escort needed: Y/N: Yes Do you have [...] documented as of this encounter Care Teams Flight Physician Relationship Specialty Start Date End Date Adeline Faustin ANP [address] [place] [address] PCP - General Family Medicine 04/16/20 documented as of this encounter
--- OUTSIDE RECORDS SUMMARY | 2025-05-05 15:03 | XMS_ITS | Encounter Summary ---
Author Organization [email or web address] [facility] Address [address] [facility] 7t [place] [address] Care Team Providers Care Legal Billing Coordinator Name Role Phone Adeline Faustin Primary Care Provider [phone] Encounter Details Date Type Department Care Team (Latest Contact Info) Description 10/01/[address] [facility] CONVERSIONS Dental, Provider, DDS Social History [...] on filedocumented in this encounter Care Teams Legal Billing Coordinator Relationship Specialty Start Date End Date Adeline Faustin ANP [address] [place] [address] PCP - General Family Medicine 04/16/20 documented as of this encounter
--- OUTSIDE RECORDS SUMMARY | 2025-05-05 15:04 | XMS_ITS | Clinical Summary ---
Author Organization [employer] Address [address] [facility] 7t [place] [address] Care Team Providers Care Hat Block Bench Hand Name Role Phone Yesica Flores Primary Care Provider [phone] Allergies No known active allergies Medications * This document contains information received from the source organization and may not represent a complete record from that organization. ascorbic acid (Vitamin C) 250 MG tablet TAKE 1 TABLET BY MOUTH WITH IRON TABLET ONCE DAILY 08/24/19 21 Active ferrous sulfate 325 (65 Fe) MG tablet TAKE 1 TABLET BY MOUTH ONCE DAILY WITH VITAMIN C 08/24/19 21 Active metoclopramide (Reglan) 5 MG tablet Take 5 mg by mouth in the morning. 08/30/19 23 Active PARoxetine (Paxil) 10 MG tablet Take 1 tablet (10 mg) by mouth in the morning. 30 tablet 11 11/25/19 23 Active meclizine (Antivert) 25 MG tablet 1 tab po BID 60 tablet 3 12/17/19 23 Active levothyroxine (Synthroid, Levoxyl) 125 MCG tablet Take 125 mcg by mouth in the morning. Active naproxen (Naprosyn) 500 MG tabletIndications :Chronic pain of left upper extremity 1 tab up to twice daily with food as needed for pain 60 tablet 12/25/19 24 Active gabapentin (Neurontin) 100 MG capsuleIndication s:Left cervical radiculopathy 1 capsule at bedtime daily, may increase to 2 capsules at bedtime if ineffective 90 capsule 1 09/01/19 25 Active amoxicillin-clavu lanate (Augmentin) 875-125 MG tabletIndications :Left otitis media with spontaneous rupture of eardrum Take 1 tablet by mouth 2 times daily for 10 days. 20 tablet 03/28/20 25 025 Active Problems Problem Noted Date Diagnosed Date Vasomotor symptoms due to menopause 05/04/2025 Foraminal stenosis of cervical region 10/26/2024 Overview (10/26/2024): on CT 09/2024 Left cervical radiculopathy 10/26/2024 Elevated blood pressure reading 10/04/2023 Assessment & [...] impairment 06/06/2015 Vitamin D deficiency 06/06/2015 Encounters * This document contains information received from the source organization and may not represent a complete record from that organization. Date Type Department Care Team Description 05/04/2025 2:30 PM EDT Office Visit [address] [address] Yesica Flores ANP Acquired hypothyroidism (Primary Dx); Vasomotor symptoms due to menopause; Bilateral anterior knee pain; Fatigue, unspecified type; Mixed anxiety and depressive disorder; Excessive daytime sleepiness 05/04/2025 Travel 05/03/[address] [address] Yesica Flores ANP chat prep 05/02/[address] [address] Yesica Flores ANP Med Refill 04/28/[address] [address] Yesica Flores ANP Prior Authorization 03/28/2025 4:00 PM EDT Office Visit [facility] [address] [place] [address] Mary Ellen Parekh MD Left otitis media with spontaneous rupture of eardrum (Primary Dx); Bilateral anterior knee pain; Excessive daytime sleepiness 03/28/2025 Travel 03/10/2025 Orders Only [address] [address] Yesica Flores ANP 02/28/[address] [address] Yesica Flores ANP Housing Form (I called the patient, regarding a reasonable accommodation request, from [facility]. She stated that she is currently living in a 3 bedroom apartment, and housing wants to move her to a 1 bedroom. She stated that she needs a 2 bedroom apartment, because she has chronic pain, anxiety, and is currently going through menopause. These conditions cause her to constantly move around in bed, and it disturbs her partner while he is trying to sleep. Therefore, they need to have their own bedrooms.) from Last 3 Months Immunizations Immunization Administration Dates Next Due Influenza injectable quadriv alent IIV4 with preservative 06/23/2018,06/18/2016,06/06/2015 Influenza injectable quadriv alent preservative free 08/27/2020,08/01/2019 Influenza, IIV3, injectable 06/09/2008 Influenza, Split (incl. [place] antigen) 06/28/2013,06/10/2012 Influenza, seasonal, injecta ble, preservative free 07/26/2024 Pfizer Covid-19 Vaccine 12+ rob-sucrose (Jensen Cap) 12/11/2021,11/20/2021 Pneumococcal Conjugate PCV 20 11/25/2024 TD (adult), 2 Lf tetanus tox oid, [...] 20 05/04/2025 2:38 PM EDT Oxygen Saturation 99% 03/28/2025 3:15 PM EDT Inhaled Oxygen Concentration - - Weight 69.4 kg (153 lb) 05/04/2025 2:38 PM EDT Height 157.5 cm (5' 2 ) 05/04/2025 2:38 PM EDT Body Mass Index 27.98 05/04/2025 2:38 PM EDT Plan of Treatment Health Maintenance Due Date Last Done Comments CT Colonography 1968 FIT DNA/Cologuard 1968 FIT 1968 FOBT 1970 Sigmoidoscopy 1968 Hepatitis C Screening 1986 Hepatitis B Vaccines (1 of 3 - 19+ 3-dose series) 1987 COVID-19 Vaccine (2024- season) 2025 12/11/2021, 11/20/2021 Influenza Vaccine (#1) 2025 , 08/27/2020, 08/01/2019, Additional history exists Alcohol/Substance Use Screening 09/01/2025 09/01/2024 SDOH Screening 11/14/2025 11/14/2024 Depression Screening 11/25/2025 11/25/2024, 11/26/19 25 Mammogram 03/10/2026 03/10/2025, 07/2 12/2024, 02/08/2024, Additional history exists Disability Screening 05/04/2026 05/04/2025 Tobacco Screening 05/04/2026 05/04/2025 Cervical Cancer Screening 11/20/2026 HPV/Cotest 11/20/2026 11/20/2021 Pap Smear 11/20/2026 11/20/2021 Colonoscopy 06/26/2033 09/22/2022, 1011/2018, 05/20/2018 Colorectal Cancer Screening 06/26/2033 DTaP/Tdap/Td Vaccines (3 - Td or Tdap) 07/26/2034 07/26/2024, 12/14/2012, 09/06/1998, Additional history exists RSV Patients and Patients Aged 60 years or older (1 - 1-dose 75+ series) 2043 Zoster Vaccines Completed 12/05/2020, 10/04/2020 HIV Screening Completed 10/03/2022 Pneumococcal Vaccine: 50+ Years Completed 11/25/2024 HIB Vaccines Aged Out No longer eligi ble based on patient's age to complete this topic HPV Vaccines Aged Out No longer eligi ble based on patient's age to complete this topic Hepatitis A Vaccines Aged Out No long er eligible based on patient's age to complete this topic IPV Vaccines Aged Out No longer eligi ble based on patient's age to complete this topic Meningococcal B Vaccine Aged Out No l onger eligible based on patient's age to complete [...] Procedure Name Priority Date/Time Associated Diagnosis Comments BI MAMMOGRAM SCREENING TOMOSYNTHESIS BILATERAL Routine 03/10/2025 3:02 PM EDT HIV 1/2 ANTIGEN/ANTIBODY, FOURTH GENERATION W/RFL Routine 10/03/2022 9:03 AM EST Routine screening for STI (sexually transmitted infection) HM COLONOSCOPY Routine 09/22/2022 2:02 PM EST THINPREP IMAGING PAP AND HPV MRNA E6/E7 WITH REFLEX TO HPV 16,18/45 Routine 11/20/2021 9:08 AM EDT from Last 3 Months or Most Recently Relevant to Health Maintenance Results * BI Mammogram Screening Tomosynthesis Bilateral (03/10/2025 3:02 PM EDT) Anatomical Region Laterality Modality Breast Bilateral Mammography 03/10/2025 3:02 PM EDT Narrative 03/21/2025 11:17 AM EDT [facility] [address] [place] [address] Mammography Report Signed Patient: Arianna Nicole MR#: [id number] : 1970 Acct:[id number] Age/Sex: 54 / F ADM Date: 03/10/25 Loc: HO.MAMMO Attending Dr: Yesica Flores NP Ordering Physician: YESICA FLORES NP Results: 1Negative Date of Service: 03/10/25 Follow Up: 1 Year From Orig inal Mammogram Procedure(s): MM tomosynthesis screening BI Accession Number(s): [id number] cc: YESICA FLORES NP EXAMINATION: MM SCREENING DIGITAL BREAST TOMOSYNTHESIS, BILATERAL CLINICAL INFORMATION: Screening. Asymptomatic. COMPARISON: Mammography: Comparison is made with available priors TECHNIQUE: Digital breast mammography with tomosynthesis is performed in both the craniocaudal and mediolateral oblique views along with computer-aided detection (CAD). FINDINGS: The breasts are heterogeneously dense, which [...] target due date for their next mammogram. Electronically signed by: Stacey Salgado DO 03/21/2025 11:13 AM EDT Dictated By: Stacey Salgado DO Signed By: <Electronically signed by Stacey Salgado DO in OV> 03/21/25 1113 DD/ 1502 TD/TT: 03/10/25 1520 Inshore Undersea Warfare Officer: Procedure Note Donotuseinterpreter, Image - 08/05/2025 [facility] [address] [place] [address] Mammography Report Signed Patient: CoreyEdnaMR#: [id number] : 1970Acct:[id number] Age/Sex: 54 / FADM Date: 03/10/25 Loc: HO.MAMMO Attending Dr: Yesica Flores POURED CONCRETE WALL TECHNICIAN Ordering Physician: YESICA FLORES NPResults: 1Negative Date of Service: 03/10/25Follow Up: 1 Year From Orig inal Mammogram Procedure(s): MM tomosynthesis screening BI Accession Number(s): [id number] cc: YESICA FLORES NP EXAMINATION: MM SCREENING DIGITAL BREAST TOMOSYNTHESIS, BILATERAL CLINICAL INFORMATION: Screening. Asymptomatic. COMPARISON: Mammography: Comparison is made with available priors TECHNIQUE: Digital breast mammography with tomosynthesis is performed in both the craniocaudal and mediolateral oblique views along with computer-aided detection (CAD). FINDINGS: The breasts are heterogeneously dense, which [...] target due date for their next mammogram. Electronically signed by: Stacey Salgado DO 03/21/2025 11:13 AM EDT Dictated By: Stacey Salgado DO Signed By: <Electronically signed by Stacey Salgado DO in OV> 03/21/25 1113 DD/ 1502 TD/TT: 03/10/25 1520 Inshore Undersea Warfare Officer: Yesica Flores ANP IMG BI PROCEDURES Edited Result - Final * HIV-1/2 Antigen and Antibodies, Fourth Generation, with Reflexes (10/03/2022 9:03 AM EST) HIV Antigen/Antibody, 4th Generation NON-REAC TIVE NON-REAC TIVE [facility] [place] [facility] Comment: HIV-1 antigen and HIV-1/HIV-2 antibodies were not detected. There is no laboratory evidence of HIV infection. PLEASE NOTE: This information has been disclosed to you from records whose confidentiality may be protected by state law. If your state requires such protection, then the state law prohibits you from making any further disclosure of the information without the specific written consent of the person to whom it pertains, or as otherwise permitted by law. A general authorization for the release of medical or other information is NOT sufficient for this purpose. For additional information please refer to http://education.What They Like/faq/TLX332 (This link is being provided for informational/ educational purposes only.) The performance of this assay has not been clinically validated in patients less than 2 years old. Blood Venous blood specimen / Unknown 10/03/2022 9:03 AM EST 10/03/2022 9:04 AM EST Narrative [facility] - 10/07/2022 3:43 PM EST FASTING:YES FASTING: YES formerly [facility] LAB BLOOD ORDERABLES Final Resul t [facility] [address], [place] [address] [facility] [place] [facility] [address], ([address]) [place] [address] * THINPREP TIS PAP AND HPV mRNA E6/E7 WITH REFLEX TO HPV 16,18/45 (11/20/2021 9:08 AM EDT) Pathologist [facility] Clinical Information: None given [facility] LAB SYSTEM COMMENT SEE COMMENT [facility] Comment: EXPLANATORY NOTE: The Pap is a screening test for cervical cancer. It is not a diagnostic test and is subject to false negative and false positive results. It is most reliable when a satisfactory sample, regularly obtained, is submitted with relevant clinical findings and history, and when the Pap result is evaluated along with historic and current clinical information. COMMENT: This Pap test has been evaluated with computer assisted technology. [facility] Patrol Captain: SEE COMMENT [facility] Comment: CMG, CT(ASCP) CT screening location: [address] [address] HPV nRNA E6/E7 Not Detected Not Detected [facility] Comment: Methodology: Quality Control Checker-Mediated Amplification This assay detects E6/E7 viral messenger RNA (mRNA) from 14 high-risk HPV types (16,18,31,33,35,39,45,51,52,56,58,59,66,68). The analytical performance characteristics of this assay have been determined by [facility]. The modifications have not been cleared or approved by the FDA. This assay has been validated pursuant to the CLIA regulations and is used for clinical purposes. For additional information, please refer to http://education.What They Like/faq/ZIB896x5 (This link if provided for information/ educational purposes only.) Interpretation/Re sult: Negative for intraepithelial lesion or malignancy. [facility] LMP: 2,020 [facility] Prev. BX: NONE [facility] SYSTEM Prev. PAP: 12/2015 [facility] SOURCE: Cervix [facility] Statement Of Adequacy: SEE COMMENT [facility] Comment: Satisfactory for evaluation. Endocervical/transformation zone component present. Partially obscuring inflammation 11/20/2021 9:08 AM EDT [facility] LAB PATHOLOGY ORDERABLES Final Result [facility] [address] * (ABNORMAL) Colonoscopy (05/20/2019) Colonoscopy Abnormal(A ) Normal 05/20/2019 Jesu Pa MD HEALTH MAINTENANCE Final Res ult from Last 3 Months or Most Recently Relevant to Health Maintenance Insurance [employer] H[employer] FULL Care Teams Hat Block Bench Hand Relationship Specialty Start Date End Date Yesica Flores ANP [address] [place] [id number] PCP - General Family Medicine 04/16/20
[2025-05-05 15:16] LABS: MANUAL DIFF FLAG NO
[2025-05-05 15:35] LABS: Hematocrit 36.9 % (37.0-47.0); Hemoglobin 12.6 g/dl (12.0-16.0); Imm Gran Abs Auto 0.02 X10*3/uL (0.00-0.03); Imm Gran Pct Auto 0.3 % (0.0-0.4); Lymphocytes Absolute Auto 2.4 X10*3/uL (1.2-4.9); Mean Corpuscular HGB Conc 34.1 g/dl (31.0-35.0); Mean Corpuscular Hemoglobin 28.4 pg (27.0-33.0); Mean Corpuscular Volume 83.1 fL (80.0-98.0); NRBC Abs Auto 0.000 X10*3/uL (0.0-0.012); NRBC Pct Auto 0.0 /100WBC (0.0-0.2); Platelet Count 233 X10*3/uL (160-400); Red Blood Count 4.44 X10*6/uL (4.20-5.50); White Blood Count 5.7 X10*3/uL (4.8-10.8)
[2025-05-05 15:54] LABS: Hemoglobin A1C 132.0971 umol/L; Total Hemoglobin (HGBA1C) 3274.6014 umol/L
[2025-05-05 16:50] LABS: Anion Gap 11 (12-20); Blood Urea Nitrogen 17 mg/dL (9-16); Calcium 9.3 mg/dL (8.4-10.2); Carbon Dioxide 28 mmol/L (22-29); Chloride 108 mmol/L (96-108); Estimated Glomerular Filt Rate 57; Potassium 4.1 mmol/L (3.3-5.1); Sodium 143 mmol/L (135-145)
[2025-05-05 17:04] LABS: Vitamin B12 368 pg/mL (200-900)
[2025-05-05 17:35] LABS: Free T4 (Free Thyroxine) 1.28 ng/dL (0.71-1.85)
== END 2025-05-05 15:01 | disposition home or self-care (01) ==
LOC: HO.LAB 15:00
PROVIDERS: PCP Nurse Practitioner Primary Care; Referring Provider Internal Medicine Endocrinology, Diabetes & Metabolism; Visit Provider Nurse Practitioner Primary Care
DX: R53.83 Other fatigue (principal); R74.8 Abnormal levels of other serum enzymes
CPT/HCPCS: 36415; 80048; 82550; 82607; 83036; 84439; 84443; 85025

== ENCOUNTER 2025-05-09 15:52 | Outpatient (AMB) | payer MEDICAID, SELFPAY ==
--- OUTSIDE RECORDS SUMMARY | 2025-05-04 14:30 | XMS_ITS | Encounter Summary ---
Author Organization [employer] [facility] Address [address] [place] [address] 7t [place] [address] Care Team Providers Care Dial Polisher Name Role Phone Adeline Faustin Primary Care Provider [phone] Reason for Referral * Hospital - Outpatient (Routine) - Authorized Specialty Diagnoses / Procedures Referred By Dimple holley Referred To Contact Diagnoses Excessive daytime sleepiness Procedures Polysomnography Adeline Faustin ANP [address] [place] [address] Phone: tel: fax: [address] Phone: tel: fax: Referral ID Status Reason Start Date Expiration Date V isits Requested Visits Authorized [id number] Authorized 05/04/2025 05/04/2026 1 1 Reason for Visit * Reason Comments Follow-up Chronic condition Encounter Details Date Type Department Care Team (Latest Contact Info) Description 05/04/2025 2:30 PM EDT Office Visit [facility] MEDICINE [address] [place], [place] [phone] Adeline Faustin ANP [address] [place] [address] Acquired hypothyroidism (Primary Dx); Vasomotor symptoms due to menopause; Bilateral anterior knee pain; Fatigue, unspecified type; Mixed anxiety and depressive disorder; Excessive daytime sleepiness Social History Tobacco Use Types Packs/Day Years Used Date Smoking Tobacco: Former Cigarettes Q uit: 2019 Passive Smoke Exposure: Past Smokeless Tobacco: Never Tobacco Cessation:Counseling Given: Not Answered Alcohol Use Standard Drinks/Week Comments Not Currently 0 (1 standard drink = 0.6 oz pur e alcohol) Depression Answer Date Recorded Patient Health Questionnaire-9 Score 0 11/25/2024 Patient Health Questionnaire-9 Score 0 11/25/2024 Last PHQ-9: Questionnaire Data Not on file 0 11/25/2024 Housing Stability Answer Date Recorded What is your housing situation today? I have sanjay huggins 11/14/[address] you li ve. Do you have problems with any of the following? None of the above 11/14/2024 Food Insecurity Answer Date Recorded Within the past 12 months, y ou worried that your food would run out before you got money to buy more: Never True 11/14/2024 Within the past 12 months,th e food you bought just didn't last and you didn't have enough money to get more: Never True Transportation Answer Date Recorded In the past 12 months, has l ack of transportation kept you from medical appts, meetings, work or from getting things needed for daily living? No 11/14/2024 Utilities Answer Date Recorded In the past 12 months, has t he electric, gas, oil or water company threatened to shut off services in your home? No 11/14/2024 Depression Answer Date Recorded Patient Health Questionnaire-2 Score 0 11/25/2024 Internet Access Answer Date Recorded Internet Access Q1 Yes 07/18/2024 Internet Access Q2 Not on file 07/18/2024 Comments No Sex and Gender Information Value Date Recorded Sex Assigned at Female 06/16/2022 10:14 AM EDT Legal Sex Female 10:14 AM EDT Gender Identity Female 06/16/2022 10:14 AM EDT Sexual Orientation Straight 06/16/2022 10 :14 AM EDT documented as of this encounter Last Filed Vital Signs Vital Sign Reading Time Taken Comments Blood Pressure 130/80 05/04/2025 2:38 PM EDT Pulse 72 05/04/2025 2:38 PM EDT Temperature 36.2 C (97.1 F) 05/04/2025 2:38 PM EDT Respiratory Rate 20 05/04/2025 2:38 PM EDT Oxygen Saturation - - Inhaled Oxygen Concentration - - Weight 69.4 kg (153 lb) 05/04/2025 2:38 PM EDT Height 157.5 cm (5' 2 ) 05/04/2025 2:38 PM EDT Body Mass Index 27.98 05/04/2025 2:38 PM EDT documented in this encounter Functional Status * Over the last 2 weeks, how often have you been bothered by any of the following problems? Question Answer Date of Assessment Author Feeling nervous, anxious, or on edge 1 05/04/2025 3:16 PM EDT Ora Quintana MA Not being able to stop or co ntrol worrying 3 05/04/2025 3:16 PM EDT Ora Quintana MA Worrying too much about diff erent things 1 05/04/2025 3:16 PM EDT Ora Quintana MA Trouble relaxing 3 05/04/2025 3:16 PM EDT Ora Terry MA Being so restless that it is hard to sit still 3 05/04/2025 3:16 PM EDT Ora Quintana MA Becoming easily annoyed or irritable 1 05/04/2025 3:16 PM EDT Ora Quintana MA Feeling afraid as if somethi ng awful might happen 2 05/04/2025 3:16 PM EDT Ora Quintana MA GILBERT-7 Total Score 14 05/04/2025 3:16 PM EDT Ora Quintana MA documented as of this encounter Progress Notes * PAULETTE Faith - 05/04/2025 2:30 PM EDT Images from the original note were not included. Subjective Patient ID: Arianna Nicole is a 54 y.o. female who presents for Follow-up (Chronic condition). HPI PMH hypothyroidism,tobacco use hx,depression,anxiety Chronic neck pain, cervical radiculopathy, started on gabapentin and referred to [facility] Met with Pulm for LDCT 01/20/25 LungRADS 2 Smoking: started at 14, quit smoking at 51. Smoked 1 PPD LMP 08/2019 Fatigue for 5 mos, no SOB, GALE. Yes hot flashes. Taking thyroid medication daily in AM. Is out but only last 3d. Denies snoring but has very significant daytime sleepiness. 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 Cates upcoming Lab Results Component Value Date TSH 9.97 (H) 07/15/2024 Ora MORATAYA provided Portuguese interpretation. Review of Systems Constitutional: Positive for fatigue. Negative for chills and fever. HENT: Negative for sore throat. Respiratory: Negative for cough and shortness of breath. Cardiovascular: Negative for chest pain. Gastrointestinal: Negative for constipation and diarrhea. Endocrine: Negative for polydipsia, polyphagia and polyuria. Genitourinary: Negative for dysuria. Musculoskeletal: Positive for arthralgias and joint swelling. Psychiatric/Behavioral: Positive for dysphoric mood and sleep disturbance. The patient is nervous/anxious. Objective BP 130/80 (BP Location: Right arm, Patient Position: Sitting, BP Cuff Size: Adult) Pulse 72 Temp 97.1 ??F (36.2 ??C) (Oral) Resp 20 Ht 5' 2 (1.575 m) Wt 153 lb (69.4 kg) BMI 27.98 kg/m?? Physical Exam Vitals reviewed. Constitutional: General: She is not in acute distress. Appearance: Normal appearance. She is not ill-appearing. HENT: Head: Normocephalic and atraumatic. Eyes: General: No scleral icterus. Extraocular Movements: Extraocular movements intact. Pupils: Pupils are equal, round, and reactive to light. Cardiovascular: Rate and Rhythm: Normal rate and regular rhythm. Pulmonary: Effort: Pulmonary effort is normal. No accessory muscle usage or respiratory distress. Musculoskeletal: Comments: Prominent and painful bilateral tibial tubercles Neurological: Mental Status: She is alert and oriented to person, place, and time. Psychiatric: Mood and Affect: Mood normal. Behavior: Behavior normal. Assessment/Plan Diagnoses and all orders for this visit: Excessive daytime somnolence ESS Score 20 Concern for pathological sleepiness BH to call pt for anxiety Reinforced sleep hygiene Check sleep study Acquired hypothyroidism Check TSH, follow-up w/ endo Vasomotor symptoms due to menopause Dress in layers, LMP 08/2019 approx. Could consider HRT in this healthy woman < 60 in 1st 10 years after menopause, will cont to consider. Focus today on sleepiness and knee pain Bilateral anterior knee pain ?jamie schlatter, check XR, wear knee pads or use cushion if kneeling - XR Knee 3 Views Left; Future - XR Knee 3 Views Right; Future Fatigue, unspecified type Wide ddx. R/o reversible causes, check sleep study, pt to follow-up w/ endo for thyroid - CBC auto differential; Future - TSH W/Reflex to FT4; Future - Vitamin B12; Future - Basic Metabolic Panel; Future - Hemoglobin A1c; Future Mixed anxiety and depressive disorder will call pt after appt documented in this encounter Plan of Treatment Scheduled Orders Name Type Priority Associated Diagnoses Orde r Schedule XR Knee 3 Views Left Imaging Routine Bilateral anterior knee pain Expected: 05/04/2025, Expires: 05/04/2026 XR Knee 3 Views Right Imaging Routine Bilateral anterior knee pain Expected: 05/04/2025, Expires: 05/04/2026 Polysomnography Sleep Center Routine Excessive daytime sleepiness Expected: 05/04/2025 (Approximate), Expires: 05/04/2026 documented as of this encounter Procedures Procedure Name Priority Date/Time Associated Diagnosis Comments TSH W/REFLEX TO FT4 Routine 05/05/2025 3 :14 PM EDT Fatigue, unspecified type CBC WITH AUTO DIFFERENTIAL Routine 05/05/2025 3:14 PM EDT Fatigue, unspecified type HEMOGLOBIN A1C Routine 05/05/2025 3:14 PM EDT Fatigue, unspecified type VITAMIN B12 Routine 05/05/2025 3:14 PM EDT Fatigue, unspecified type BASIC METABOLIC PANEL Routine 05/05/2025 3:14 PM EDT Fatigue, unspecified type documented in this encounter Results * Hemoglobin A1c (05/05/2025 3:14 PM EDT) Hemoglobin A1c 5.8 <6.0 % [facility] Comment:Hemoglobin A1C Refer ence Range Adults: 4.8 - 6.0 % Non diabetic: < 6.0 % Goal: < 7.0 %Additional Action Suggested: > 8.0 %Note: Hemoglobin A1c results are invalid for patients with abnormal amounts of HbF. Blood transfusions may impact the HbA1c concentration in the patient sample. Estimated Average Glucose 120 mg/dL [facility] Comment:eAG = Estimated ave rage glucose which is %A1C expressed asaverage glucose, using the formula of the G1J-VqncpotTnsvcqs Glucose study (ADAG), Diabetes Care, Vol.31,#8,Mar. 2007 Blood Venous blood specimen / Unknown 05/05/2025 3:14 PM EDT 05/05/2025 3:14 PM EDT Adeline Faustin [facility] BLOOD ORDERABLES Final Resul t [facility] [address] [place] [phone] * (ABNORMAL) Basic Metabolic Panel (05/05/2025 3:14 PM EDT) Sodium 143 135 - 145 mmol/L [facility] Potassium 4.1 3.3 - 5.1 mmol/L [facility] Chloride 108 96 - 108 mmol/L [facility] Carbon Dioxide 28 22 - 29 mmol/L [facility] Anion Gap 11(L) 12 - 20 [facility] Urea Nitrogen (BUN) 17(H) 9 - 16 mg/dL [facility] Creatinine, Serum 1.01 0.5 - 1.4 mg/dL [facility] Estimated Glomerular Filt Rate 57 [facility] Comment:Chronic Kidney Disea se: Estimated GFR < 60 mL/min/1.77s0Usnsep Kidney Disease: Estimated GFR < 15 mL/min/1.73m2 Glucose 102 60 - 115 mg/dL [facility] Calcium 9.3 8.4 - 10.2 mg/dL [facility] Blood Venous blood specimen / Unknown 05/05/2025 3:14 PM EDT 05/05/2025 3:14 PM EDT Adeline Faustin ANP LAB BLOOD ORDERABLES Final Resul t Performing Organization Address [facility] Co de Phone Number [facility] [address] [place] [phone] * Vitamin B12 (05/05/2025 3:14 PM EDT) Vitamin B12 368 200 - 900 pg/mL [facility] Comment:NORMAL 200-900 PG/ML INDETERMINATE 160-199 PG/ML DEFICIENT < 160 PG/ML Blood Venous blood specimen / Unknown 05/05/2025 3:14 PM EDT 05/05/2025 3:14 PM EDT Adeline Faustin ANP LAB BLOOD ORDERABLES Final Resul t Performing Organization Address [facility] de Phone Number [facility] [address] [place] [phone] * (ABNORMAL) TSH W/Reflex to FT4 (05/05/2025 3:14 PM EDT) Pathologist [facility] TSH reflex Free T4 0.25(L) 0.32 - 4.0 uIU/mL [facility] Blood Venous blood specimen / Unknown 05/05/2025 3:14 PM EDT 05/05/2025 3:14 PM EDT Adeline Faustin ANP LAB BLOOD ORDERABLES Final Resul t Performing Organization Address [facility] Co de Phone Number [facility] [address] [place] [phone] [phone] * (ABNORMAL) CBC auto differential (05/05/2025 3:14 PM EDT) Pathologist [facility] White Blood Count 5.7 4.8 - 10.8 X10*3/uL [facility] Red Blood Count 4.44 4.20 - 5.50 X10*6/uL [facility] Hemoglobin 12.6 12.0 - 16.0 g/dl [facility] Hematocrit 36.9(L) 37.0 - 47.0 % [facility] Mean Corpuscular Volume 83.1 80.0 - 98.0 fL [facility] Mean Corpuscular Hemoglobin 28.4 27.0 - 33.0 pg [facility] Mean Corpuscular HGB Conc 34.1 31.0 - 35.0 g/dl [facility] Red Cell Distribution Width 13.4 11.0 - 16.0 % [facility] Platelet Count 233 160 - 400 X10*3/uL [facility] Mean Platelet Volume 10.5 9.4 - 12.3 fL [facility] Neutrophils Percent Auto 46.2 45 - 73 % [facility] Imm Gran Pct Auto 0.3 0.0 - 0.4 % [facility] Lymphocytes Percent Auto 41.3(H) 20 - 40 % [facility] Monocytes Percent Auto 9.6 2 - 11 % [facility] Eosinophils Percent Auto 1.7 0 - 4 % [facility] Basophils Percent Auto 0.9 0 - 2 % [facility] NRBC Pct Auto 0.0 0.0 - 0.2 /100WBC [facility] Neutrophils Absolute Auto 2.7 2.0 - 8.3 x10*3/uL [facility] Imm Gran Abs Auto 0.02 0.00 - 0.03 X10*3/uL [facility] Lymphocytes Absolute Auto 2.4 1.2 - 4.9 X10*3/uL [facility] Monocytes Absolute Auto 0.6 0.1 - 1.2 X10*3/uL [facility] Eosinophils Absolute Auto 0.1 0.0 - 0.4 X10*3/uL [facility] Basophils Absolute Auto 0.1 0.0 - 0.2 X10*3/uL [facility] NRBC Abs Auto 0.000 0.0 - 0.012 X10*3/uL [facility] Blood Venous blood specimen / Unknown 05/05/2025 3:14 PM EDT 05/05/2025 3:14 PM EDT us Adeline CALDWELL LAB BLOOD ORDERABLES Final Resul t [facility] [address] [place] [phone] documented in this encounter Visit Diagnoses Diagnosis Acquired hypothyroidism- Primary Unspecified hypothyroidism Vasomotor symptoms due to menopause Bilateral anterior knee pain Fatigue, unspecified type Mixed anxiety and depressive disorder Dysthymic disorder Excessive daytime sleepiness documented in this encounter Additional Health Concerns Assessment Noted Time PHQ-9 Depression Total Score: 0 11/26/19 25 10:56 AM EDT documented as of this encounter Care Teams Dial Polisher Relationship Specialty Start Date End Date Adeline Faustin, PAULETTE [address] [place] [address] PCP - General Family Medicine 04/16/20 documented as of this encounter
--- NOTE | 2025-05-09 15:53 | MHC.OFFVIS ---
Vital Signs 05/09/25 15:56 Height 5 ft 2 in Weight 154 lb 12.232 oz BMI 28.3 BP 114/74 Blood Pressure Location Rt brachial Position Sitting Pulse 90 Pulse Source Pulse Oximeter Pulse Oximetry (%) 98 Oxygen Delivery Method Room Air Intake Visit Reasons: Hypothyroidism Intake Note: Patient present today for Hypothyroidism follow up. Door To Door Selling Agent Required: Yes Door To Door Selling Agent Language: Tap Dancer Services: Door To Door Selling Agent Present Door To Door Selling Agent [place] [facility] [place] [facility] [employer] Information Interpreted: non-clinical & clinical Accompanied by: Self / Same As Patient Allergies No Known Allergies Allergy (Verified 05/09/25 15:56) Medication List - Last Reconciled 05/09/25 by Shay Cates MD bisacodyl (Dulcolax (bisacodyl)) 10 mg (2 x 5 mg) PO ONCE 1 day cholecalciferol (vitamin D3) 50 mcg PO DAILY cyanocobalamin (vitamin B-12) 1,000 mcg PO DAILY diphenhydramine HCl (Benadryl) 25 mg PO ONCE ibuprofen 600 mg PO Q8H PRN levothyroxine 125 mcg PO DAILY metoclopramide HCl (Reglan) 5 mg PO DAILY naproxen 500 mg PO BID PRN 7 days polyethylene glycol 3350 (Miralax) 238 grams PO ONCE 1 day prednisone 40 mg (2 x 20 mg) PO DAILY 5 days HPI Comments Details: 54 YO F with who is seen in consultation at the request of his PCP for Hyothyroidism. First diagnosed with Hypothyroidism since 16 yrs old with labs revealing []. Currently using levothyroxine 125 ug . On this dose for a mo . Claims compliance Denies - fatigue, +weight gain , -cold intolerance, +dry skin, +hair loss, +constipation. There is no hx of hyperlipidemia . Denies obstructive sx of goiter . Denies consuming any kelp or seaweed. Denies taking amiodarone. perimenopaual : Biotin: No Family history of thyroid disease: Mother and brother hypothyroidism Labs: TSH slightly suppressed on 125 mcg levothyroxine [facility] Medical History (Updated 12/15/24 @ 14:42 by Sunshine Garza PA-C) Tubular adenoma of colon Personal history of nicotine dependence Hyperplastic colon polyp Hypothyroidism Midline back pain Diffuse cystic mastopathy of both breasts Poor vision Depression Anxiety Vitamin B 12 deficiency Vitamin D deficiency Surgical History History of tubal ligation History of carpal tunnel release of both wrists (~2021) History of colonoscopy Family History Mother Diabetes Leukemia Social History Alcohol intake: current Alcohol intake frequency: holidays/special occasions only Patient Tobacco Use Status: Former Tobacco user Tobacco use type: Cigarette Years Smoked: (onset 14yo, 1ppd x 37yrs, 35pyh, quit 2021) Current occupational status: employed 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 Thyroid gland measure 15 gms . No nodules or tenderness palpated. There is no cervical adenopathy palpated. Lungs CTA. Heart S1, S2 Reg R/R -M/R/G. Abdominal exam benign. Skin exam reveals absence of dryness or thyroid dermopathy or vitiligo. Nail exam reveals absence of thyroid acropachy or oncholysis. Neurologic exam reveals 2+ reflexes . Muscle Strength is 5/5 proximally. There are no tremors in upper extremities. Const Other: Thyroid gland is normal size weighs about 15 g Assessment & Plan Assessment & Plan (1) Hypothyroidism: Code(s): E03.9 - Hypothyroidism, unspecified Category: Medical Plan: This is a 54-year-old female with history of hypothyroidism currently being treated with 125 mcg levothyroxine. She appears to be clinically euthyroid but has aelevated TSH Plan is to decrease levothyroxine to 112 mcg and recheck TSH and free T4 in 6 weeks . Orders: Orders Thyroid Stimulating Hormone 6 Weeks E03.9 - Hypothyroidism, unspecified Free T4 (Free Thyroxine) 6 Weeks E03.9 - Hypothyroidism, unspecified Medications: New levothyroxine (Synthroid) 112 mcg PO DAILY 30 tabs 4RF Discontinued levothyroxine Discontinued Reason: Doctor's Order 125 mcg PO DAILY 30 tabs 3RF Coding Level of Care Code Est Pt Level 3 (80308) Diagnoses Hypothyroidism E03.9
[2025-05-09 15:56] VITALS: BP 114/74; PULSE 90; O2SAT 98; BMI 28.3
--- OUTSIDE RECORDS SUMMARY | 2025-05-09 18:29 | XMS_ITS | Encounter Summary ---
Author Organization [employer] Address [address] [facility] 7t [place] [address] Care Team Providers Care Bank Secrecy Act Officer Name Role Phone Adeline Faustin Primary Care Provider [phone] Encounter Details Date Type Department Care Team ([facility] st Contact Info) Description 05/05/2025 Orders Only [facility] [address] [place] [address] Adeline Faustin ANP [address] [place] [address] Social History Tobacco Use Types Packs/Day Years [...] on file documented as of this encounter Procedures Procedure Name Priority Date/Time Associated Diagnosis Comments T4, FREE Routine 05/05/2025 3:14 PM EDT documented in this encounter Results * T4, Free (05/05/2025 3:14 PM EDT) Free T4 (Free Thyroxine) 1.28 0.71 - 1.85 ng/dL [facility] 05/05/2025 3:14 PM EDT 05/05/2025 3:14 PM EDT Adeline CALDWE[facility] LAB BLOOD ORDERABLES Final Resul t [facility] [address] [place] [address] [phone] documented in this encounter Visit Diagnoses Not on filedocumented in this encounter Additional Health Concerns Assessment Noted Time PHQ-9 Depression Total Score: 0 11/26/19 25 10:56 AM EDT documented as of this encounter Care Teams Bank Secrecy Act Officer Relationship Specialty Start Date End Date Adeline Faustin ANP [address] [place] [id number] PCP - General Family Medicine 04/16/20 documented as of this encounter
--- OUTSIDE RECORDS SUMMARY | 2025-05-09 18:29 | XMS_ITS | Encounter Summary ---
Author Organization [employer] [facility] Address [address] [place] [address] 7t [place] [address] Care Team Providers Care Brand Strategist Name Role Phone Adeline Faustin PAULETTE Primary Care Provider [phone] Encounter Details Date Type Department Care Team (Late st Contact Info) Description 09/11/2022 Orders Only [facility] MEDICINE [address] [place] [address] Debbie De La Paz FNP [address] [place] [address] Pain of right lower extremity (Primary Dx) [...] Primary documented in this encounter Care Teams Brand Strategist Relationship Specialty Start Date End Date Adeline Faustin ANP [address] [place] [address] PCP - General Family Medicine 04/16/20 documented as of this encounter
--- OUTSIDE RECORDS SUMMARY | 2025-05-09 18:29 | XMS_ITS | Encounter Summary ---
Author Organization [employer] [facility] Address [address] [facility] 7t [place] [address] Care Team Providers Care Roof Bolting Coal Miner Name Role Phone Adeline Faustin Primary Care Provider [phone] Reason for Visit * Reason Onset Date Comments Change providers 12/17/2022 Encounter Details Date Type Department Care Team (Late st Contact Info) Description 12/17/2022 Telephone [facility] MEDICINE [address] [place] [address] Adeline Faustin ANP [address] [place], [place] [phone] Change providers Social History Tobacco Use Types [...] and that message will be sent to front office secretary to call patient and tell who is accepting new patients. Patient advised in the mean time until she sees the new provider her current PCP will refill medications. RN ensured patienthad understanding of her medication and dosage changes that occurred recently with her TSH levels. Patient verbalized she understood instructions with medications and agrees with plan regarding transfer. Message forwarded to aircraft manager to call patient about transfer request. * Telephone Encounter - Barbara Larios - 12/17/2022 4:31 PM EDT Tc from pt requesting to switch providers due to a medication concern she is having regarding levothyroxine (Synthroid, Levoxyl) 150 MCG tablet .. ( pt was wrongly taking medication ) Please contact pt at [phone] Upper Sorbian Speaker documented in this encounter Plan of Treatment Not on file documented as of this encounter Visit Diagnoses Not on filedocumented in this encounter Care Teams Roof Bolting Coal Miner Relationship Specialty Start Date End Date Adeline Faustin ANP [address] [place] [id number] PCP - General Family Medicine 04/16/20 documented as of this encounter
--- OUTSIDE RECORDS SUMMARY | 2025-05-09 18:29 | XMS_ITS | Encounter Summary ---
Author Organization [employer] Address [address] [facility] 7t [place] [address] Care Team Providers Care Phone Engineer Name Role Phone Adeline Faustin Primary Care Provider [phone] Reason for Visit * Reason Onset Date Comments Results 05/08/2025 Encounter Details Date Type Department Care Team ([facility] st Contact Info) Description 05/08/2025 Results Follow-Up [facility]ICINE [address] [place] [address] Adeline Faustin ANP [address] [place], [place] [phone] CBC auto differential, TSH W/Reflex to FT4, Vitamin B12, Additional followed-up results: 2 Social History Tobacco Use Types Packs/Day Years [...] encounter Miscellaneous Notes * Telephone Encounter - Larisa Michelle RN - 05/08/2025 11:15 AM EDT Telephone call to pt via [facility] . Reviewed below note with pt: - thyroid levels low. Pt confirms taking levothyroxine daily. Advised her to skip 1 day per week (e.g. Thursday) and follow up with endocrinology. Pt reports she has an appointment with Dr Cates tomorrow, advised her to follow up with him regarding this tomorrow. - kidney function labs little elevated. Reviewed importance of good hydration, at least 1.5L of water daily and to minimize NSAIDs - blood sugar stable, no anemia, CK (muscle enzymes) mildly elevated, advised her to call [facility] if developing any muscle cramps Pt verbalized understanding, no further questions. * Telephone Encounter - Larisa Michelle RN - 05/08/2025 11:01 AM EDT ----- Message from Adeline Faustin sent at 05/08/2025 10:56 AM EDT ----- Please let pt know, thyroid was a little low this time - curious if it's possible she has been taking too much of thyroid medication? I think she reported having difficulty remembering to take meds so I believe I gave her a pillbox, but if not, please encourage her to get one. If she reports taking too much, no change to prescription, just take as rx'd. If she reports taking as rx'd, recommend skip once day per week (I.e. Thursday) and call endo for follow-up appointment. Renal function a little high, would recommend good hydration, at least 1.5L daily and not to take too much aleve/naproxen, advil, motrin, etc. Blood sugar stable. No anemia. CK (muscle enzyme) was just above normal level. Will just recheck next labs and let us know if any new muscle pains develop. ----- Message ----- From: Interface, Lab Results In Sent: 05/05/2025 3:36 PM EDT To: PAULETTE Faith * Result Encounter Note - PAULETTE Faith - 05/08/2025 10:56 AM EDT Please let pt know, thyroid was a little low this time - curious if it's possible she has been taking too much of thyroid medication? I think she reported having difficulty remembering to take meds so I believe I gave her a pillbox, but if not, please encourage her to get one. If she reports takingtoo much, no change to prescription, just take as rx'd. If she reports taking as rx'd, recommend skip once day per week (I.e. Thursday) and call endo for follow-up appointment. Renal function a little high, would recommend good hydration, at least 1.5L daily and not to take too much aleve/naproxen, advil, motrin, etc. Blood sugar stable. No anemia. CK (muscle enzyme) was just above normal level. Will just recheck next labs and let us know if any new muscle pains develop. documented in this encounter Plan of Treatment Not on file documented as of this encounter Visit Diagnoses Not on filedocumented in this encounter Additional Health Concerns Assessment Noted Time PHQ-9 Depression Total Score: 0 11/26/19 25 10:56 AM EDT documented as of this encounter Care Teams Phone Engineer Relationship Specialty Start Date End Date Adeline Faustin ANP [address] [place] [id number] PCP - General Family Medicine 04/16/20 documented as of this encounter
--- OUTSIDE RECORDS SUMMARY | 2025-05-09 18:29 | XMS_ITS | Encounter Summary ---
Author Organization [employer] Address [address] [facility] 7t [place] [address] Care Team Providers Care Grocery Stock Clerk Name Role Phone Adeline Faustin Primary Care Provider [phone] Reason for Visit * Reason Onset Date Comments PT-1 09/06/2024 Encounter Details Date Type Department Care Team ([facility] st Contact Info) Description 09/06/2024 Telephone [facility] MEDICINE [address] [place], [place] [phone] Adeline Faustin ANP [address] [place], [place] [phone] PT-1 Social History Tobacco Use Types Packs/Day [...] Y/N: Yes Provider name or facility name: [address] [place] [id number] Escort needed: Y/N: Yes Do you have [...] documented as of this encounter Care Teams Grocery Stock Clerk Relationship Specialty Start Date End Date Adeline Faustin ANP [address] [place] [phone] PCP - General Family Medicine 04/16/20 documented as of this encounter
--- OUTSIDE RECORDS SUMMARY | 2025-05-09 18:29 | XMS_ITS | Encounter Summary ---
Author Organization [employer] Address [address] [facility] [address] 7[address] [place] [address] Care Team Providers Care Field Naturalist Name Role Phone Adeline Faustin Primary Care Provider [phone] Encounter Details Date Type Department Care Team [...] documented as of this encounter Care Teams Field Naturalist Relationship Specialty Start Date End Date Adeline Faustin, ANP [address] [place] [phone] PCP - General Family Medicine 04/16/20 documented as of this encounter
--- OUTSIDE RECORDS SUMMARY | 2025-05-09 18:29 | XMS_ITS | Encounter Summary ---
Author Organization [employer] [facility] Address [address] [facility] 7t [place] [address] Care Team Providers Care Day Guard Name Role Phone Adeline Faustin Primary Care Provider [phone] Encounter Details Date Type Department Care Team (Latest Contact Info) Description 10/01/2018 Abstract [facility] CONVERSIONS Dental, Provider, DDS Social [...] on filedocumented in this encounter Care Teams Day Guard Relationship Specialty Start Date End Date Adeline Faustin ANP [address] [place] [id number] PCP - General Family Medicine 04/16/20 documented as of this encounter
--- OUTSIDE RECORDS SUMMARY | 2025-05-09 18:29 | XMS_ITS | Encounter Summary ---
Author Organization [employer] Address [address] [facility] 7t [place] [address] Care Team Providers Care Candy Feeder Name Role Phone Adeline Faustin Primary Care Provider [phone] Reason for Visit * Reason Onset Date Comments Pt1 02/02/2024 Encounter Details Date Type Department Care Team ([facility] st Contact Info) Description 02/02/[address] [facility] MEDICINE [address] [place] [address] Adeline Faustin ANP [address] [place], [place] [phone] Pt1 Social History Tobacco Use Types Packs/Day [...] Y/N: Yes Provider name or facility name: [facility] Facility Address: [address] [place] [address] [place] [address] Escort needed: Y/N: No Do you have [...] documented as of this encounter Care Teams Candy Feeder Relationship Specialty Start Date End Date Adleine Faustin ANP [address] [place] [address] [place] [address] PCP - General Family Medicine 04/16/20 documented as of this encounter
--- OUTSIDE RECORDS SUMMARY | 2025-05-09 18:29 | XMS_ITS | Encounter Summary ---
Author Organization [employer] [facility] Address [address] [facility] 7t [place] [address] Care Team Providers Care Van Helper Name Role Phone Adeline Faustin Primary Care Provider [phone] Encounter Details Date Type Department Care Team (Latest Contact Info) Description 08/13/2020 Abstract [facility] CONVERSIONS Dental, Provider, DDS Social History Tobacco [...] on filedocumented in this encounter Care Teams Van Helper Relationship Specialty Start Date End Date Adeline Faustin ANP [address] [place] [phone] PCP - General Family Medicine 04/16/20 documented as of this encounter
--- OUTSIDE RECORDS SUMMARY | 2025-05-09 18:29 | XMS_ITS | Clinical Summary ---
Author Organization [employer] Address [address] [facility] 7t [place] [address] Care Team Providers Care Registered Nurse Fetal Name Role Phone Yesica Flores Primary Care Provider [phone] Allergies No known active allergies Medications * [...] DAILY WITH VITAMIN C 08/24/19 21 Active PARoxetine (Paxil) 10 MG tablet Take 1 tablet (10 mg) by mouth in the morning. 30 tablet 11 11/25/19 23 Active meclizine (Antivert) 25 MG tablet 1 tab po BID 60 tablet 3 12/17/19 23 Active levothyroxine (Synthroid, Levoxyl) 125 MCG tablet Take 125 mcg by mouth in the morning. Active gabapentin (Neurontin) 100 MG capsuleIndication s:Left cervical radiculopathy 1 capsule at bedtime daily, may increase to 2 capsules at bedtime if ineffective 90 capsule 1 09/01/19 25 Active metoclopramide (Reglan) 5 MG tablet Take 5 mg by mouth in the morning. 08/30/19 23 025 Discontin ued(Thera py completed ) naproxen (Naprosyn) 500 MG tabletIndications :Chronic pain of left upper extremity 1 tab up to twice daily with food as needed for pain 60 tablet 12/25/19 24 025 Discontin ued(Thera py completed ) Active Problems Problem Noted Date Diagnosed Date [...] organization. Date Type Department Care Team Description 05/08/2025 Results Follow-Up [facility] [address] [place] [address] Yesica Flores, ANP CBC auto differential, TSH W/Reflex to FT4, Vitamin B12, Additional followed-up results: 2 05/05/2025 Orders Only [address] [address] Yesica Flores ANP 05/04/2025 2:30 PM EDT Office Visit [address] [address] Yesica Flores ANP Acquired hypothyroidism (Primary Dx); Vasomotor symptoms due to menopause; Bilateral anterior knee pain; Fatigue, unspecified type; Mixed anxiety and depressive disorder; Excessive daytime sleepiness 05/04/2025 Travel 05/03/[address] [address] Yesica Flores ANP chat prep 05/02/[address] [address] Yesica Flores ANP Med Refill 04/28/[address] [address] Yesica Flores ANP Prior Authorization 03/28/2025 4:00 PM EDT Office Visit [facility] [address] [place] [phone] Mary Ellen Parekh MD Left otitis media with spontaneous rupture of eardrum (Primary Dx); Bilateral anterior knee pain; Excessive daytime sleepiness 03/28/2025 Travel 03/10/2025 Orders Only [address] [address] Yesica Flores ANP 02/28/[address] [address] Yesica Flores ANP Housing Form (I called the patient, regarding a reasonable accommodation request, from [facility]. She stated that she is currently living [...] 11/25/2025 11/25/2024, 11/26/19 25 Mammogram 03/10/2026 03/10/2025, 02/15, 02/08/2024, Additional history exists Disability Screening 05/04/2026 05/04/2025 Diabetes: Hemoglobin A1C 05/05/2026 025, 08/16/2021, 10/04/2020 Tobacco Screening 05/08/2026 05/08/2025 Cervical Cancer Screening 11/20/2026 HPV/Cotest 11/20/2026 11/20/2021 Pap Smear 11/20/2026 11/20/2021 Colonoscopy 06/26/2033 09/22/2022, 10/0 11/2018, 05/20/2018 Colorectal Cancer Screening 06/26/2033 DTaP/Tdap/Td Vaccines [...] T4, FREE Routine 05/05/2025 3:14 PM EDT HEMOGLOBIN A1C Routine 05/05/2025 3:14 PM EDT Fatigue, unspecified type BASIC METABOLIC PANEL Routine 05/05/2025 3:14 PM EDT Fatigue, unspecified type VITAMIN B12 Routine 05/05/2025 3:14 PM EDT Fatigue, unspecified type TSH W/REFLEX TO FT4 Routine 05/05/2025 3 :14 PM EDT Fatigue, unspecified type CBC WITH AUTO DIFFERENTIAL Routine 05/05/2025 3:14 PM EDT Fatigue, unspecified type CREATINE KINASE, TOTAL Routine 3:14 PM EDT Elevated CK BI MAMMOGRAM SCREENING TOMOSYNTHESIS BILATERAL Routine 03/10/2025 [...] Recently Relevant to Health Maintenance Results * (ABNORMAL) TSH W/Reflex to FT4 (05/05/2025 3:14 PM EDT) TSH reflex Free T4 0.25(L) 0.32 - 4.0 uIU/mL [facility] Blood Venous blood specimen / Unknown 05/05/2025 3:14 PM EDT 05/05/2025 3:14 PM EDT Yesica Flores [facility] LAB BLOOD ORDERABLES Final Resul t [facility] [address] [place] [phone] * (ABNORMAL) CBC auto differential (05/05/2025 3:14 PM EDT) White Blood Count 5.7 4.8 - 10.8 X10*3/uL [facility] Red Blood Count 4.44 4.20 - 5.50 X10*6/uL [facility] Hemoglobin 12.6 12.0 - 16.0 g/dl [facility] Hematocrit 36.9(L) 37.0 - 47.0 % [facility] Mean Corpuscular Volume 83.1 80.0 - 98.0 fL [facility] Mean Corpuscular Hemoglobin 28.4 27.0 - 33.0 pg [facility] Mean Corpuscular HGB Conc 34.1 31.0 - 35.0 g/dl [facility] Red Cell Distribution Width 13.4 11.0 - 16.0 % [facility] Platelet Count 233 160 - 400 X10*3/uL [facility] Mean Platelet Volume 10.5 9.4 - 12.3 fL [facility] Neutrophils Percent Auto 46.2 45 - 73 % [facility] Imm Gran Pct Auto 0.3 0.0 - 0.4 % [facility] Lymphocytes Percent Auto 41.3(H) 20 - 40 % [facility] Monocytes Percent Auto 9.6 2 - 11 % [facility] Eosinophils Percent Auto 1.7 0 - 4 % [facility] Basophils Percent Auto 0.9 0 - 2 % [facility] NRBC Pct Auto 0.0 0.0 - 0.2 /100WBC [facility] Neutrophils Absolute Auto 2.7 2.0 - 8.3 x10*3/uL [facility] Imm Gran Abs Auto 0.02 0.00 - 0.03 X10*3/uL [facility] Lymphocytes Absolute Auto 2.4 1.2 - 4.9 X10*3/uL [facility] Monocytes Absolute Auto 0.6 0.1 - 1.2 X10*3/uL [facility] Eosinophils Absolute Auto 0.1 0.0 - 0.4 X10*3/uL [facility] Basophils Absolute Auto 0.1 0.0 - 0.2 X10*3/uL [facility] NRBC Abs Auto 0.000 0.0 - 0.012 X10*3/uL [facility] Blood Venous blood specimen / Unknown 05/05/2025 3:14 PM EDT 05/05/2025 3:14 PM EDT Yesica Flores ANP LAB BLOOD ORDERABLES Final Resul t Performing Organization Address [facility] Co de Phone Number [facility] [address] [place] [phone] * T4, Free (05/05/2025 3:14 PM EDT) Free T4 (Free Thyroxine) 1.28 0.71 - 1.85 ng/dL [facility] 05/05/2025 3:14 PM EDT 05/05/2025 3:14 PM EDT Yesica Flores [facility] LAB BLOOD ORDERABLES Final Resul t Performing Organization Address [facility] de Phone Number [facility] [address] [place] [phone] * Hemoglobin A1c (05/05/2025 3:14 PM EDT) Hemoglobin A1c 5.8 <6.0 % [facility] Comment:Hemoglobin A1C Refer ence Range Adults: 4.8 - 6.0 % Non diabetic: < 6.0 % Goal: < 7.0 %Additional Action Suggested: > 8.0 %Note: Hemoglobin A1c results are invalid for patients with abnormal amounts of HbF. Blood transfusions may impact the HbA1c concentration in the patient sample. Estimated Average Glucose 120 mg/dL [facility] Comment:eAG = Estimated ave rage glucose which is %A1C expressed asaverage glucose, using the formula of the I4S-MgaesdjUbekpts Glucose study (ADAG), Diabetes Care, Vol.31,#8,Mar. 2007 Blood Venous blood specimen / Unknown 05/05/2025 3:14 PM EDT 05/05/2025 3:14 PM EDT Yesica Flores ANP LAB BLOOD ORDERABLES Final Resul t Performing Organization Address [facility] Co de Phone Number [facility] [address] [place] [phone] * Vitamin B12 (05/05/2025 3:14 PM EDT) Vitamin B12 368 200 - 900 pg/mL [facility] Comment:NORMAL 200-900 PG/M L INDETERMINATE 160-199 PG/ML DEFICIENT < 160 PG/ML Blood Venous blood specimen / Unknown 05/05/2025 3:14 PM EDT 05/05/2025 3:14 PM EDT Yesica Flores [facility] LAB BLOOD ORDERABLES Final Resul t Performing Organization Address [facility] de Phone Number [facility] [address] [place] [phone] * (ABNORMAL) Creatine Kinase, Total (05/05/2025 3:14 PM EDT) Pathologist [facility] Creatine Kinase Total 143(H) 26 - 140 U/L [facility] Blood Venous blood specimen / Unknown 05/05/2025 3:14 PM EDT 05/05/2025 3:14 PM EDT Yesica Flores [facility] LAB BLOOD ORDERABLES Final Resul t Performing Organization Address [facility] Co de Phone Number [facility] [address] [place] [phone] * (ABNORMAL) Basic Metabolic Panel (05/05/2025 3:14 PM EDT) Pathologist [facility] Sodium 143 135 - 145 mmol/L [facility] Potassium 4.1 3.3 - 5.1 mmol/L [facility] Chloride 108 96 - 108 mmol/L [facility] Carbon Dioxide 28 22 - 29 mmol/L [facility] Anion Gap 11(L) 12 - 20 [facility] Urea Nitrogen (BUN) 17(H) 9 - 16 mg/dL [facility] Creatinine, Serum 1.01 0.5 - 1.4 mg/dL [facility] Estimated Glomerular Filt Rate 57 [facility] Comment:Chronic Kidney Disea se: Estimated GFR < 60 mL/min/1.18w3Mqtbjo Kidney Disease: Estimated GFR < 15 mL/min/1.73m2 Glucose 102 60 - 115 mg/dL [facility] Calcium 9.3 8.4 - 10.2 mg/dL [facility] Blood Venous blood specimen / Unknown 05/05/2025 3:14 PM EDT 05/05/2025 3:14 PM EDT Yesica Flores [facility] LAB BLOOD ORDERABLES Final Resul t [facility] [address] [place] [phone] * BI Mammogram Screening Tomosynthesis Bilateral (03/10/2025 3:02 PM EDT) Anatomical Region Laterality Modality Breast Bilateral Mammography 03/10/2025 3:02 PM EDT Narrative 03/21/2025 11:17 AM EDT [facility] [address] [place] [address] Mammography Report Signed Patient: Arianna Nicole MR#: [id number] : 1970 Acct:[id number] Age/Sex: 54 / F ADM Date: 03/10/25 Loc: HO.MAMMO Attending Dr: Yesica Flores NP Ordering Physician: YESICA FLORES NP Results: 1Negative Date of Service: 03/10/25 Follow Up: 1 Year From Orig ina Mammogram Procedure(s): MM tomosynthesis screening BI Accession Number(s): [id number] cc: YESICA FLORES NP EXAMINATION: MM SCREENING [...] 03/21/25 1113 DD/ 1502 TD/TT: 03/10/25 1520 Sed Special Education Teacher: Procedure Note Donotuseinterpreter, Image - 03/21/2025 [facility] [address] [place] [address] Mammography Report Signed Patient: CoreyEdnaMR#: [id number] : 1970Acct:[id number] Age/Sex: 54 / FADM Date: 03/10/25 Loc: [facility] Attending Dr: Yesica Flores NP Ordering Physician: YESICA FLORES NPResults: 1Negative Date of Service: 03/10/25Follow Up: 1 Year From Orig inal Mammogram Procedure(s): MM tomosynthesis screening BI Accession Number(s): [id number] cc: YESICA FLORES NP EXAMINATION: MM SCREENING [...] 03/21/25 1113 DD/ 1502 TD/TT: 03/10/25 1520 Sed Special Education Teacher: Yesica CALDWELL IMaPwan BI PROCEDURES Edited Result - Final * HIV-1/2 Antigen and Antibodies, Fourth Generation, with Reflexes (10/03/2022 9:03 AM EST) HIV Antigen/Antibody, 4th Generation NON-REAC TIVE NON-REAC TIVE [facility] Comment: HIV-1 antigen and HIV-1/HIV-2 antibodies were [...] purpose. For additional information please refer to http://education.Zyante.AlienVault/faq/FNO212 (This link is being provided for informational/ educational purposes only.) The performance of this assay has not been clinically validated in patients less than 2 years old. Blood Venous blood specimen / Unknown 10/03/2022 9:03 AM EST 10/03/2022 9:04 AM EST Narrative [facility] - 10/07/2022 3:43 PM EST FASTING:YES FASTING: YES [facility] LAB BLOOD ORDERABLES Final Resul t ESTHER [address] [facility], [facility], [place] [address] [facility] [address] [facility], ([address]) [place] [address] * THINPREP TIS PAP AND HPV mRNA E6/E7 WITH REFLEX TO HPV 16,18/45 (11/20/2021 9:08 AM EDT) Clinical Information: None given [facility] COMMENT SEE COMMENT [facility] [...] has been evaluated with computer assisted technology. [facility] Hospital Coordinator: SEE COMMENT [facility] Comment: CMG, CT(ASCP) CT screening location: [address] [address] HPV nRNA E6/E7 Not Detected Not Detected [employer] Comment: Methodology: Development Geologist-Mediated Amplification This assay detects E6/E7 viral messenger RNA (mRNA) from 14 high-risk HPV types (16,18,31,33,35,39,45,51,52,56,58,59,66,68). The analytical performance characteristics of this assay have been determined by [employer]. The modifications have not been cleared or approved by the FDA. This assay has been validated pursuant to the CLIA regulations and is used for clinical purposes. For additional information, please refer to http://education.Zyante.AlienVault/faq/FRX338k9 (This link if provided for information/ educational purposes only.) Interpretation/Re sult: Negative for intraepithelial lesion or malignancy. [facility] LMP: 2,020 [facility] Prev. BX: NONE GIVEN [facility] Prev. PAP: 12/2015 [facility] SOURCE: [employer] [facility] Statement Of Adequacy: SEE COMMENT [facility] Comment: Satisfactory for evaluation. Endocervical/transformation zone component present. Partially obscuring inflammation 11/20/2021 9:08 AM EDT Eryn Presley CNM LAB PATHOLOGY ORDERABLES Final Result [facility] [address] [place] [address], * (ABNORMAL) Colonoscopy (05/20/2019) Colonoscopy Abnormal(A ) Normal 05/20/2019 Jesu Pa MD HEALTH MAINTENANCE Final Res ult from Last 3 Months or Most Recently Relevant to Health Maintenance Insurance C3 HSN FULL Care Teams Registered Nurse Fetal Relationship Specialty Start Date End Date Yesica Flores ANP [address] [place] [phone] PCP - General Family Medicine 04/16/20
--- OUTSIDE RECORDS SUMMARY | 2025-05-09 18:29 | XMS_ITS | Encounter Summary ---
Author Organization [employer] [facility] Address [address] [facility] 7t [place] [address] Care Team Providers Care Stain Applicator Name Role Phone Adeline Faustin Primary Care Provider [phone] Encounter Details Date Type Department Care Team (Latest Contact Info) Description 07/01/2019 Abstract [facility] CONVERSIONS Dental, Provider, DDS Social History [...] on filedocumented in this encounter Care Teams Stain Applicator Relationship Specialty Start Date End Date Adeline Faustin ANP [address] [place] [phone] PCP - General Family Medicine 04/16/20 documented as of this encounter
== END 2025-05-10 15:30 | disposition home or self-care (01) ==
LOC: HO.ENCR 15:53
PROVIDERS: PCP Nurse Practitioner Primary Care; Visit Provider Internal Medicine Endocrinology, Diabetes & Metabolism
DX: E03.9 Hypothyroidism, unspecified (principal)
CPT/HCPCS: 99213

== ENCOUNTER → 2025-05-09 15:52 | Outpatient (BNVA) | payer MEDICAID, SELFPAY | PROVIDERS: PCP Nurse Practitioner Primary Care; Visit Provider Internal Medicine Endocrinology, Diabetes & Metabolism | DX: E03.9 Hypothyroidism, unspecified (principal); Z79.890 Hormone replacement therapy | CPT/HCPCS: 99212 ==

== ENCOUNTER → 2025-07-17 13:00 | Outpatient (REF) | payer MEDICAID, SELFPAY ==
--- OUTSIDE RECORDS SUMMARY | 2025-07-17 16:40 | XMS_ITS | Encounter Summary ---
Author Organization [employer] [facility] Address [address] [facility] 7t [place] [address] Care Team Providers Care Senior Manager Name Role Phone Adeline Faustin Primary Care Provider [phone] Reason for Visit * Reason Onset Date Comments Change providers 12/17/2022 Encounter Details Date Type Department Care Team (Late st Contact Info) Description 12/17/2022 Telephone [facility] [address] [place] [address] Adeline Faustin ANP [address] [place], [place] [phone] Change providers Social History Tobacco Use Types [...] that message will be sent to front tender to call patient and tell who is accepting new patients. Patient advised in the mean time until she sees the new provider her current PCP will refill medications. RN ensured patienthad understanding of her medication and dosage changes that occurred recently with her TSH levels. Patient verbalized she understood instructions with medications and agrees with plan regarding transfer. Message forwarded to perianesthesia manager to call patient about transfer request. * Telephone Encounter - Barbara Larios - 12/17/2022 4:31 PM EDT Tc from pt requesting to switch providers due to a medication concern she is having regarding levothyroxine (Synthroid, Levoxyl) 150 MCG tablet .. ( pt was wrongly taking medication ) Please contact pt at [phone] Luxembourger Speaker documented in this encounter Plan of Treatment Not on file documented as of this encounter Visit Diagnoses Not on filedocumented in this encounter Care Teams Senior Manager Relationship Specialty Start Date End Date Adeline Faustin ANP [address] [place] [phone] PCP - General Family Medicine 04/16/20 documented as of this encounter
--- OUTSIDE RECORDS SUMMARY | 2025-07-17 16:40 | XMS_ITS | Encounter Summary ---
Author Organization [employer] [facility] Address [address] [facility] 7t [place] [address] Care Team Providers Care Head Miller Name Role Phone Adeline Faustin Primary Care Provider [phone] Encounter Details Date Type Department Care Team (Latest Contact Info) Description 10/01/2018 Abstract [facility] CONVERSIONS Dental, Provider, DDS Social History [...] on filedocumented in this encounter Care Teams Head Miller Relationship Specialty Start Date End Date Adeline Faustin ANP [address] [place] [phone] PCP - General Family Medicine 04/16/20 documented as of this encounter
--- OUTSIDE RECORDS SUMMARY | 2025-07-17 16:40 | XMS_ITS | Encounter Summary ---
Author Organization [employer] [facility] Address [address] [facility] 7t [place] [address] Care Team Providers Care Network Designer Name Role Phone Adeline Faustin Primary Care Provider [phone] Encounter Details Date Type Department Care Team (Latest Contact Info) Description 08/13/2020 Abstract [facility] CONVERSIONS Dental, Provider, DDS Social History [...] on filedocumented in this encounter Care Teams Network Designer Relationship Specialty Start Date End Date Adeline Faustin ANP [address] [place] [phone] PCP - General Family Medicine 04/16/20 documented as of this encounter
--- OUTSIDE RECORDS SUMMARY | 2025-07-17 16:40 | XMS_ITS | Encounter Summary ---
Author Organization [employer] Address [address] [facility] 7t [place] [address] Care Team Providers Care Metallic Yarn Slitting Machine Operator Name Role Phone Adeline Faustin Primary Care Provider Reason for Visit * Reason Onset Date Comments PT-1 09/06/2024 Encounter Details Date Type Department Care Team ([facility] st Contact Info) Description 09/06/2024 Telephone [facility] MEDICINE [address] [place], [place] [phone] Adeline Faustin ANP [address] [place], [place] [phone] PT-1 Social History Tobacco Use Types Packs/Day [...] Y/N: Yes Provider name or facility name: [address] [place] [phone] Escort needed: Y/N: Yes Do you have [...] documented as of this encounter Care Teams Metallic Yarn Slitting Machine Operator Relationship Specialty Start Date End Date Adeline Faustin ANP [address] [place] [phone] PCP - General Family Medicine 04/16/20 documented as of this encounter
--- OUTSIDE RECORDS SUMMARY | 2025-07-17 16:40 | XMS_ITS | Encounter Summary ---
Author Organization [employer] Address [address] [facility] 7t [place] [address] Care Team Providers Care Radio Board Operator Name Role Phone Adeline Faustin Primary Care Provider [phone] Reason for Visit * Reason Onset Date Comments Pt1 02/02/2024 Encounter Details Date Type Department Care Team ([facility] st Contact Info) Description 02/02/2024 Telephone [facility] MEDICINE [address] [place] [address] Adeline Faustin ANP [address] [place], [place] [phone] Pt1 Social History Tobacco Use Types Packs/Day [...] Y/N: Yes Provider name or facility name: [facility] : [facility] Facility Address: [address] [place] [address] [place] [address] Escort needed: Y/N: No Do you have [...] documented as of this encounter Care Teams Radio Board Operator Relationship Specialty Start Date End Date Adeline Faustin ANP [address] [place] [address] [place] [address] PCP - General Family Medicine 04/16/20 documented as of this encounter
--- OUTSIDE RECORDS SUMMARY | 2025-07-17 16:40 | XMS_ITS | Clinical Summary ---
Author Organization [employer] Address [address] [facility] 7t [place] [address] Care Team Providers Care Load Test Mechanic Name Role Phone Yesica Flores PAULETTE Primary Care Provider [phone] Allergies No known active allergies Medications * [...] ONCE DAILY WITH VITAMIN C 1 Active PARoxetine (Paxil) 10 MG tablet Take [...] Department Care Team Description 05/08/2025 Results Follow-Up [facility] [address] [place] [phone] Yesica Flores ANP CBC auto differential, TSH W/Reflex to FT4, Vitamin B12, Additional followed-up results: 2 05/05/2025 Orders Only [address] [address] Yesica Flores ANP 05/04/2025 2:30 PM EDT Office Visit [address] [address] Yesica Flores ANP Acquired hypothyroidism (Primary Dx); Vasomotor symptoms due to menopause; Bilateral anterior knee pain; Fatigue, unspecified type; Mixed anxiety and depressive disorder; Excessive daytime sleepiness 05/04/2025 Travel 05/03/[address] [address] Yesica Flores ANP chat prep 05/02/[address] [address] Yesica Flores ANP Med Refill 04/28/[address] [address] Yesica Flores ANP Prior Authorization from Last 3 Months Immunizations Immunization Administration [...] - 19+ 3-dose series) 1987 COVID-19 Vaccine (3 - 2024- season) 2025 12/11/2021, 11/20/2021 Influenza Vaccine (#1) [...] 11/20/2021 Pap Smear 11/20/2026 11/20/2021 Colonoscopy 06/26/2033 06/26/2023, 02/01/2023, 05/20/2019, Additional history exists Colorectal Cancer Screening 06/26/2033 DTaP/Tdap/Td Vaccines (3 [...] Free T4 0.25(L) 0.32 - 4.0 uIU/mL [facility] Blood Venous blood specimen / Unknown 05/05/2025 3:14 PM EDT 05/05/2025 3:14 PM EDT Yesica Flores [facility] BLOOD ORDERABLES Final Resul t [facility] [address] [place], [place] [phone] * (ABNORMAL) CBC auto differential (05/05/2025 3:14 PM EDT) White Blood Count 5.7 4.8 - 10.8 X10*3/uL [facility] Red Blood Count 4.44 4.20 - 5.50 X10*6/uL [facility] Hemoglobin 12.6 12.0 - 16.0 g/dl [facility] Hematocrit 36.9(L) 37.0 - 47.0 % [facility] Mean Corpuscular Volume 83.1 80.0 - 98.0 fL [facility] Mean Corpuscular Hemoglobin 28.4 27.0 - 33.0 pg [facility] Mean Corpuscular HGB Conc 34.1 31.0 - 35.0 g/dl [facility] Red Cell Distribution Width 13.4 11.0 - 16.0 % [facility] Platelet Count 233 160 - 400 X10*3/uL [facility] Mean Platelet Volume 10.5 9.4 - 12.3 fL [facility] Neutrophils Percent Auto 46.2 45 - 73 % [facility] Imm Gran Pct Auto 0.3 0.0 - 0.4 % [facility] Lymphocytes Percent Auto 41.3(H) 20 - 40 % [facility] Monocytes Percent Auto 9.6 2 - 11 % [facility] Eosinophils Percent Auto 1.7 0 - 4 % [facility] Basophils Percent Auto 0.9 0 - 2 % [facility] NRBC Pct Auto 0.0 0.0 - 0.2 /100WBC [facility] Neutrophils Absolute Auto 2.7 2.0 - 8.3 x10*3/uL [facility] Imm Gran Abs Auto 0.02 0.00 - 0.03 X10*3/uL [facility] Lymphocytes Absolute Auto 2.4 1.2 - 4.9 X10*3/uL [facility] Monocytes Absolute Auto 0.6 0.1 - 1.2 X10*3/uL [facility] Eosinophils Absolute Auto 0.1 0.0 - 0.4 X10*3/uL [facility] Basophils Absolute Auto 0.1 0.0 - 0.2 X10*3/uL [facility] NRBC Abs Auto 0.000 0.0 - 0.012 X10*3/uL [facility] Blood Venous blood specimen / Unknown 05/05/2025 3:14 PM EDT 05/05/2025 3:14 PM EDT Yesica [facility] LAB BLOOD ORDERABLES Final Resul t Performing Organization Address City/[facility]/ZIP Co de Phone Number [facility] [address] [place] [phone] * T4, Free (05/05/2025 3:14 PM EDT) Free T4 (Free Thyroxine) 1.28 0.71 - 1.85 ng/dL [facility] 05/05/2025 3:14 PM EDT 05/05/2025 3:14 PM EDT Yesica [facility] LAB BLOOD ORDERABLES Final Resul t Performing Organization Address City/[facility]/ZIP Co de Phone Number [facility] [address] [place] [phone] * Hemoglobin A1c (05/05/2025 3:14 PM EDT) Hemoglobin A1c 5.8 <6.0 % [facility] Comment:Hemoglobin A1C Refer ence Range Adults: 4.8 - 6.0 % Non diabetic: < 6.0 % Goal: < 7.0 %Additional Action Suggested: > 8.0 %Note: Hemoglobin A1c results are invalid for patients with abnormal amounts of HbF. Blood transfusions may impact the HbA1c concentration in the patient sample. Estimated Average Glucose 120 mg/dL [facility] Comment:eAG = Estimated ave rage glucose which is %A1C expressed asaverage glucose, using the formula of the M2V-MqqqidlFnbcgfh Glucose study (ADAG), Diabetes Care, Vol.31,#8,2007 Blood Venous blood specimen / Unknown 05/05/2025 3:14 PM EDT 05/05/2025 3:14 PM EDT Yesica Flores [facility] LAB BLOOD ORDERABLES Final Resul t Performing Organization Address [facility] Co de Phone Number [facility] [address] [place] [phone] * Vitamin B12 (05/05/2025 3:14 PM EDT) Vitamin B12 368 200 - 900 pg/mL [facility] Comment:NORMAL 200-900 PG/ML INDETERMINATE 160-199 PG/ML DEFICIENT < 160 PG/ML Blood Venous blood specimen / Unknown 05/05/2025 3:14 PM EDT 05/05/2025 3:14 PM EDT Yesica Flores [facility] BLOOD ORDERABLES Final Resul t Performing Organization Address [facility] Co de Phone Number [facility] [address] [place] [phone] * (ABNORMAL) Creatine Kinase, Total (05/05/2025 3:14 PM EDT) Creatine Kinase Total 143(H) 26 - 140 U/L [facility] Blood Venous blood specimen / Unknown 05/05/2025 3:14 PM EDT 05/05/2025 3:14 PM EDT Yesica Flores ANP LAB BLOOD ORDERABLES Final Resul t Performing Organization Address [facility] de Phone Number [facility] [address] [place] [phone] * (ABNORMAL) Basic Metabolic Panel (05/05/2025 3:14 PM EDT) Sodium 143 135 - 145 mmol/L [facility] Potassium 4.1 3.3 - 5.1 mmol/L [facility] Chloride 108 96 - 108 mmol/L [facility] Carbon Dioxide 28 22 - 29 mmol/L [facility] Anion Gap 11(L) 12 - 20 [facility] Urea Nitrogen (BUN) 17(H) 9 - 16 mg/dL [facility] Creatinine, Serum 1.01 0.5 - 1.4 mg/dL [facility] Estimated Glomerular Filt Rate 57 [facility] Comment:Chronic Kidney Disea se: Estimated GFR < 60 mL/min/[id number] Kidney Disease: Estimated GFR < 15 mL/min/1.73m2 Glucose 102 60 - 115 mg/dL [facility] Calcium 9.3 8.4 - 10.2 mg/dL [facility] Blood Venous blood specimen / Unknown 05/05/2025 3:14 PM EDT 05/05/2025 3:14 PM EDT Yesica Flores ANP LAB BLOOD ORDERABLES Final Resul t Performing Organization Address [facility] Co de Phone Number [facility] [address] [place] [phone] * BI Mammogram Screening Tomosynthesis Bilateral (03/10/2025 3:02 PM EDT) Anatomical Region Laterality Modality Breast Bilateral Mammography 03/10/2025 3:02 PM EDT Narrative 03/21/2025 11:17 AM EDT [facility] [address] [place] [address] Mammography Report Signed Patient: Arianna Nicole MR#: [id number] : 1970 Acct:[id number] Age/Sex: 54 / F ADM Date: 03/10/25 Loc: [facility] Attending Dr: Yesica Flores NP Ordering Physician: YESICA FLORES NP Results: 1Negative Date of Service: 03/10/25 Follow Up: 1 Year From Orig ina Mammogram Procedure(s): MM tomosynthesis screening BI Accession Number(s): [id number] cc: YESICA FLORES NP EXAMINATION: MM SCREENING [...] 03/21/25 1113 DD/ 1502 TD/TT: 03/10/25 1520 Csr Technician: Procedure Note Donotuseinterpreter, Image - 03/21/2025 [facility] [address] [place], [place] [address] Mammography Report Signed Patient: CoreyEdnaMR#: [id number] : 1970Acct:[id number] Age/Sex: 54 / FADM Date: 03/10/25 Loc: HO.MAMMO Attending Dr: Yesica Flores SHERIFF'S DETECTIVE Ordering Physician: YESICA FLORES NPResults: 1Negative Date of Service: 03/10/25Follow Up: 1 Year From Orig ina Mammogram Procedure(s): MM tomosynthesis screening BI Accession Number(s): [id number] cc: YESICA FLORES NP EXAMINATION: MM SCREENING [...] 03/21/25 1113 DD/ 1502 TD/TT: 03/10/25 1520 Csr Technician: Yesica Flores ANP IMG BI PROCEDURES Edited Result - Final * HIV-1/2 Antigen and Antibodies, Fourth Generation, with Reflexes (10/03/2022 9:03 AM EST) HIV Antigen/Antibody, 4th Generation NON-REAC TIVE NON-REAC TIVE [facility] [employer] [facility] Comment: HIV-1 antigen and HIV-1/HIV-2 antibodies were [...] purpose. For additional information please refer to http://education.[employer]/faq/DDG395 (This link is being provided for informational/ educational purposes only.) The performance of this assay has not been clinically validated in patients less than 2 years old. Blood Venous blood specimen / Unknown 10/03/2022 9:03 AM EST 10/03/2022 9:04 AM EST Narrative [facility] - 10/07/2022 3:43 PM EST FASTING:YES FASTING: YES [facility] LAB BLOOD ORDERABLES Final Resul t [employer] [address] [place] [address], [facility], [place] [address] [employer] [facility] [address] [place] [address], ([address]) [place] [phone] * THINPREP TIS PAP AND HPV mRNA E6/E7 WITH REFLEX TO HPV 16,18/45 (11/20/2021 9:08 AM EDT) Clinical Information: None given [facility] COMMENT SEE COMMENT FOUNDATI ON [...] along with historic and current clinical information. Comment: This Pap test has been evaluated with computer assisted technology. [employer] [facility] Jv Baseball Coach: SEE COMMENT [facility] Comment: CMG, CT(ASCP) CT screening location: [address] [address] HPV nRNA E6/E7 Not Detected Not Detected [facility] Comment: Methodology: Finisher Denture-Mediated Amplification This assay detects E6/E7 viral messenger RNA (mRNA) from 14 high-risk HPV types (16,18,31,33,35,39,45,51,52,56,58,59,66,68). The analytical performance characteristics of this assay have been determined by [employer]. The modifications have not been cleared or approved by the FDA. This assay has been validated pursuant to the CLIA regulations and is used for clinical purposes. For additional information, please refer to http://education.[employer]/faq/BEJ179c1 (This link if provided for information/ educational purposes only.) Interpretation/Re sult: Negative for intraepithelial lesion or malignancy. [facility] LMP: 2,020 [facility] Prev. BX: NONE GIVEN FOUNDATIO N LAB SYSTEM Prev. PAP: 12/2015 [facility] ON LAB SYSTEM SOURCE: [employer] [facility] Statement Of Adequacy: SEE COMMENT [facility] Comment: Satisfactory for evaluation. Endocervical/transformation zone component present. Partially obscuring inflammation 11/20/2021 9:08 AM EDT Eryn [facility] LAB PATHOLOGY ORDERABLES Final Result [facility] [address] * (ABNORMAL) Colonoscopy (05/20/2019) Colonoscopy Abnormal(A ) Normal 05/20/2019 Jesu Pa MD HEALTH MAINTENANCE Final Res ult from Last 3 Months or Most Recently Relevant to Health Maintenance Insurance [facility] C3 HSN FULL Care Teams Load Test Mechanic Relationship Specialty Start Date End Date Yesica Flores ANP [address] [place] [phone] PCP - General Family Medicine 04/16/20
--- OUTSIDE RECORDS SUMMARY | 2025-07-17 16:40 | XMS_ITS | Encounter Summary ---
Author Organization [facility] Address [address] [place] [address] [address]t [place] [address] Care Team Providers Care Dean For Student Affairs Name Role Phone Adeline Faustin PAULETTE Primary Care Provider [phone] Encounter Details Date Type Department Care Team (Late st Contact Info) Description 09/11/2022 Orders Only [facility] [address] [place] [address] Debbie De La Paz FNP [address] [place] [address] Pain of right lower extremity (Primary Dx) [...] Primary documented in this encounter Care Teams Dean For Student Affairs Relationship Specialty Start Date End Date Adeline Faustin ANP [address] [place] [address] PCP - General Family Medicine 04/16/20 documented as of this encounter
--- OUTSIDE RECORDS SUMMARY | 2025-07-17 16:40 | XMS_ITS | Encounter Summary ---
Author Organization [facility] Address [address] [facility] 7t [place] [address] Care Team Providers Care Dinkey Locomotive Engineer Name Role Phone Adeline Faustin Primary Care Provider [phone] Encounter Details Date Type Department Care Team (Latest Contact Info) Description 07/01/2019 Abstract [facility] CON[facility]S Dental, Provider, DDS Social History [...] on filedocumented in this encounter Care Teams Dinkey Locomotive Engineer Relationship Specialty Start Date End Date Adeline Faustin ANP [address] [place] [phone] PCP - General Family Medicine 04/16/20 documented as of this encounter
== END ==
LOC: HO.SL 13:00
PROVIDERS: PCP Nurse Practitioner Primary Care; Visit Provider Nurse Practitioner Primary Care
DX: G47.19 Other hypersomnia (principal)
CPT/HCPCS: 95806

== ENCOUNTER → 2025-07-17 21:00 | Outpatient (BNV) | payer MEDICAID, SELFPAY | PROVIDERS: PCP Nurse Practitioner Primary Care; Visit Provider Psychiatry & Neurology Neurology | DX: G47.33 Obstructive sleep apnea (adult) (pediatric) (principal) | CPT/HCPCS: 95806 ==

== ENCOUNTER 2025-07-31 10:55 | Outpatient (REF) | payer MEDICAID, SELFPAY ==
[2025-07-31 12:20] LABS: Free T4 (Free Thyroxine) 1.02 ng/dL (0.71-1.85); Thyroid Stimulating Hormone 4.08 uIU/mL (0.32-4.0)
== END 2025-07-31 10:56 | disposition home or self-care (01) ==
LOC: HO.LAB 10:55
PROVIDERS: PCP Nurse Practitioner Primary Care; Visit Provider Internal Medicine Endocrinology, Diabetes & Metabolism
DX: E03.9 Hypothyroidism, unspecified (principal)
CPT/HCPCS: 36415; 84439; 84443

== ENCOUNTER 2025-08-01 09:23 | Outpatient (AMB) | payer MEDICAID, SELFPAY ==
--- NOTE | 2025-08-01 09:48 | A.OFFVIS_ITS ---
Vital Signs 08/01/25 09:51 Height 5 ft 2 in Weight 157 lb 6.561 oz BMI 28.8 BP 116/74 Blood Pressure Location Rt brachial Position Sitting Pulse 81 Pulse Source Pulse Oximeter Pulse Oximetry (%) 97 Oxygen Delivery Method Room Air Intake Visit Reasons: Hypothyroidism Intake Note: Patient present today for Hypothyroidism follow up. Functional Analyst Required: Yes Functional Analyst Language: Life Skills Consultant Services: Functional Analyst Present Functional Analyst Name: [facility] Rissa Siddiqui Information Interpreted: non-clinical & clinical Accompanied by: Self / Same As Patient Allergies No Known Allergies Allergy (Verified 08/01/25 09:56) Medication List - Last Reconciled 08/01/25 by Shay Cates MD bisacodyl (Dulcolax (bisacodyl)) 10 mg (2 x 5 mg) PO ONCE 1 day cholecalciferol (vitamin D3) 50 mcg PO DAILY cyanocobalamin (vitamin B-12) 1,000 mcg PO DAILY diphenhydramine HCl (Benadryl) 25 mg PO ONCE ibuprofen 600 mg PO Q8H PRN levothyroxine (Synthroid) 112 mcg PO DAILY metoclopramide HCl (Reglan) 5 mg PO DAILY naproxen 500 mg PO BID PRN 7 days polyethylene glycol 3350 (Miralax) 238 grams PO ONCE 1 day prednisone 40 mg (2 x 20 mg) PO DAILY 5 days HPI Comments Details: 55 YO F with who is seen in consultation at the request of his PCP for Hyothyroidism. First diagnosed with Hypothyroidism since 16 yrs old with labs revealing []. Currently using levothyroxine 112 ug . On this dose for a mo . Claims compliance perimenopaual : Biotin: No Family history of thyroid disease: Mother and brother hypothyroidism Labs: TSH slightly elevated on 112 mcg levothyroxine [facility] Medical History (Updated 12/15/24 @ 14:42 by Sunshine Garza PA-C) Tubular adenoma of colon Personal history of nicotine dependence Hyperplastic colon polyp Hypothyroidism Midline back pain Diffuse cystic mastopathy of both breasts Poor vision Depression Anxiety Vitamin B 12 deficiency Vitamin D deficiency Surgical History History of tubal ligation History of carpal tunnel release of both wrists (~2021) History of colonoscopy Family History Mother Diabetes Leukemia Social History Alcohol intake: current Alcohol intake frequency: holidays/special occasions only Patient Tobacco Use Status: Former Tobacco user Tobacco use type: Cigarette Years Smoked: (onset 14yo, 1ppd x 37yrs, 35pyh, quit 2021) Current occupational status: employed 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 There are no thyroid nodules palpated Assessment & Plan Assessment & Plan (1) Hypothyroidism: Code(s): E03.9 - Hypothyroidism, unspecified Category: Medical Plan: This is a 54-year-old female with history of hypothyroidism currently being treated with 112 mcg levothyroxine. She appears to be clinically euthyroid but has an elevated TSH Plan is to recheck TSH and free T4 in 6 weeks . Orders: Orders Free T4 (Free Thyroxine) 6 Weeks E03.9 - Hypothyroidism, unspecified Thyroid Stimulating Hormone 6 Weeks E03.9 - Hypothyroidism, unspecified Medications: New levothyroxine (Unithroid) alt 112 ug with 125 ug 125 mcg PO DAILY 15 tabs 4RF Changed From levothyroxine (Synthroid) 112 mcg PO DAILY 30 tabs 4RF To levothyroxine (Synthroid) alternate 112 ug with 125 ug 112 mcg PO DAILY 15 tabs 4RF Coding Level of Care Code Est Pt Level 3 (25561) Diagnoses Hypothyroidism E03.9
[2025-08-01 09:51] VITALS: BP 116/74; PULSE 81; O2SAT 97; BMI 28.8
--- OUTSIDE RECORDS SUMMARY | 2025-08-01 10:52 | XMS_ITS | Encounter Summary ---
Author Organization [employer] Address [address] [facility] 7t [place] [address] Care Team Providers Care Animal Hospital Clerk Name Role Phone Adeline Faustin PAULETTE Primary Care Provider [phone] Encounter Details Date Type Department Care Team (Late st Contact Info) Description 07/31/2025 Orders Only GENERIC EXTERNAL DATA DEPARTMENT Provider, Generic External Data Social History Tobacco Use Types Packs/Day Years [...] Name Priority Date/Time Associated Diagnosis Comments TSH Routine 07/31/2025 11:05 AM EST T4, FREE Routine 07/31/2025 11:05 AM EST documented in this encounter Results * (ABNORMAL) TSH (07/31/2025 11:05 AM EST) Thyroid Stimulating Hormone 4.08(H) 0.32 - 4.0 uIU/mL [facility] Comment:Note: A sustained TS H level above 2.5 uIU/mL may warrant further investigation. TSH 3rd Generation ([facility]) 07/31/2025 11:0 5 AM EST 07/31/2025 11:05 AM EST us Generic External Data Provider LAB BLOOD ORDERAB LES Final Result [facility] [address] [place] [phone] * T4, Free (07/31/2025 11:05 AM EST) Free T4 (Free Thyroxine) 1.02 0.71 - 1.85 ng/dL [facility] 07/31/2025 11:0 5 AM EST 07/31/2025 11:05 AM EST us Generic External Data Provider LAB BLOOD ORDERAB LES Final Result [facility] [address] [place] [phone] documented in this encounter Visit Diagnoses Not on filedocumented in this encounter Additional Health Concerns Assessment Noted Time PHQ-9 Depression Total Score: 0 11/26/19 25 10:56 AM EDT documented as of this encounter Care Teams Animal Hospital Clerk Relationship Specialty Start Date End Date Adeline Faustin ANP [address] [place] [address] PCP - General Family Medicine 04/16/20 documented as of this encounter
--- OUTSIDE RECORDS SUMMARY | 2025-08-01 10:52 | XMS_ITS | Encounter Summary ---
Author Organization [facility] Address [address] [facility] 7t [place] [address] Care Team Providers Care Jewel Corner Brushing Machine Operator Name Role Phone Adeline Faustin Primary Care Provider [phone] Encounter Details Date Type Department Care Team (Latest Contact Info) Description 08/13/2020 Abstract [facility] CONVERSIONS Dental, Provider, DDS Social History Tobacco [...] on filedocumented in this encounter Care Teams Jewel Corner Brushing Machine Operator Relationship Specialty Start Date End Date Adeline Faustin ANP [address] [place] [phone] PCP - General Family Medicine 04/16/20 documented as of this encounter
--- OUTSIDE RECORDS SUMMARY | 2025-08-01 10:52 | XMS_ITS | Encounter Summary ---
Author Organization [facility] Address [address] [facility] 7t [place] [address] Care Team Providers Care Testing Machine Operator Name Role Phone Adeline Faustin Primary Care Provider [phone] Encounter Details Date Type Department Care Team (Latest Contact Info) Description 10/01/2018 Abstract [facility] CONVERSIONS Dental, Provider, DDS Social [...] on filedocumented in this encounter Care Teams Testing Machine Operator Relationship Specialty Start Date End Date Adeline Faustin ANP [address] [place] [phone] PCP - General Family Medicine 04/16/20 documented as of this encounter
--- OUTSIDE RECORDS SUMMARY | 2025-08-01 10:52 | XMS_ITS | Encounter Summary ---
Author Organization [facility] Address [address] [facility] 7t [place] [address] Care Team Providers Care Gear Hobber Set Up Operator Name Role Phone Adeline Faustin Primary Care Provider [phone] Reason for Visit * Reason Onset Date Comments Change providers 12/17/2022 Encounter Details Date Type Department Care Team (Late st Contact Info) Description 12/17/2022 Telephone [facility] [address] [place] [address] Adeline Faustin ANP [address] [place], [place] [phone] Change providers Social History Tobacco Use Types [...] that message will be sent to front end developer to call patient and tell who is accepting new patients. Patient advised in the mean time until she sees the new provider her current PCP will refill medications. RN ensured patienthad understanding of her medication and dosage changes that occurred recently with her TSH levels. Patient verbalized she understood instructions with medications and agrees with plan regarding transfer. Message forwarded to business office manager to call patient about transfer request. * Telephone Encounter - Barbara Larios - 12/17/2022 4:31 PM EDT Tc from pt requesting to switch providers due to a medication concern she is having regarding levothyroxine (Synthroid, Levoxyl) 150 MCG tablet .. ( pt was wrongly taking medication ) Please contact pt at [phone] Dominican Speaker documented in this encounter Plan of Treatment Not on file documented as of this encounter Visit Diagnoses Not on filedocumented in this encounter Care Teams Gear Hobber Set Up Operator Relationship Specialty Start Date End Date Adeline Faustin ANP [address] [place] [phone] PCP - General Family Medicine 04/16/20 documented as of this encounter
--- OUTSIDE RECORDS SUMMARY | 2025-08-01 10:52 | XMS_ITS | Encounter Summary ---
Author Organization [employer] Address [address] [facility] 7t [place] [address] Care Team Providers Care Print Press Operator Name Role Phone Adeline Faustin Primary Care Provider [phone] Reason for Visit * Reason Onset Date Comments PT-1 09/06/2024 Encounter Details Date Type Department Care Team ([facility] st Contact Info) Description 09/06/2024 Telephone [facility] MEDICINE [address] [place], [place] [phone] Adeline Faustin ANP [address] [place], [place] [phone] PT-1 Social History Tobacco Use Types Packs/Day [...] Y/N: Yes Provider name or facility name: [address] [place] [address] Escort needed: Y/N: Yes Do you have [...] documented as of this encounter Care Teams Print Press Operator Relationship Specialty Start Date End Date Adeline Faustin ANP [address] [place] [phone] PCP - General Family Medicine 04/16/20 documented as of this encounter
--- OUTSIDE RECORDS SUMMARY | 2025-08-01 10:52 | XMS_ITS | Encounter Summary ---
Author Organization [facility] Address [address] [facility] 7t [place] [address] Care Team Providers Care Hog Confinement System Manager Name Role Phone Adeline Faustin Primary Care Provider [phone] Encounter Details Date Type Department Care Team (Latest Contact Info) Description 07/01/2019 Abstract [facility] CONVERSIONS Dental, Provider, DDS Social History [...] on filedocumented in this encounter Care Teams Hog Confinement System Manager Relationship Specialty Start Date End Date Adeline Faustin ANP [address] [place] [phone] PCP - General Family Medicine 04/16/20 documented as of this encounter
--- OUTSIDE RECORDS SUMMARY | 2025-08-01 10:52 | XMS_ITS | Encounter Summary ---
Author Organization [facility] Address [address] [place] [address] 7t [place] [address] Care Team Providers Care Associate Attorney Name Role Phone Adeline Faustin PAULETTE Primary Care Provider [phone] Encounter Details Date Type Department Care Team (Late st Contact Info) Description 09/11/2022 Orders Only [facility] MEDICINE [address] [place] [address] Debbie De La Paz FNP [address] [place] [address] Pain of right lower extremity (Primary Dx) [...] Primary documented in this encounter Care Teams Associate Attorney Relationship Specialty Start Date End Date Adeline Faustin ANP [address] [place] [address] PCP - General Family Medicine 04/16/20 documented as of this encounter
--- OUTSIDE RECORDS SUMMARY | 2025-08-01 10:52 | XMS_ITS | Clinical Summary ---
Author Organization [employer] Address [address] [facility] 7t [place] [address] Care Team Providers Care Bait Man Name Role Phone Yesica Flores PAULETTE Primary Care Provider [phone] Allergies No known active allergies Medications * [...] organization. Date Type Department Care Team Description 07/31/2025 Orders Only GENERIC EXTERNAL DATA DEPARTMENT Provider, Generic External Data 05/08/2025 Results Follow-Up [address] [address] Yesica Flores ANP CBC auto differential, TSH W/Reflex to FT4, Vitamin B12, Additional followed-up results: 2 05/05/2025 Orders Only [address] [address] Yesica Flores ANP 05/04/2025 2:30 PM EDT Office Visit [address] [address] Yesica Flores ANP Acquired hypothyroidism (Primary Dx); Vasomotor symptoms due to menopause; Bilateral anterior knee pain; Fatigue, unspecified type; Mixed anxiety and depressive disorder; Excessive daytime sleepiness 05/04/2025 Travel 05/03/2025 Telephone [facility] [address] [place] [address] Yesica Flores ANP chat prep 05/02/2025 Telephone [facility] [address] [place], [place] [phone] Yesica Flores ANP Med Refill from Last 3 Months Immunizations Immunization Administration [...] the past 12 months, has t he [employer], gas, oil or water company threatened to [...] Pap Smear 11/20/2026 11/20/2021 Colonoscopy 06/26/2033 06/26/2023, 02/0 01/2023, 05/20/2019, Additional history exists Colorectal Cancer Screening [...] T4, FREE Routine 07/31/2025 11:05 AM EST T4, FREE Routine 05/05/2025 3:14 PM EDT [...] to Health Maintenance Results * (ABNORMAL) TSH (07/31/2025 11:05 AM EST) Thyroid Stimulating Hormone 4.08(H) 0.32 - 4.0 uIU/mL [facility] Comment:Note: A sustained TS H level above 2.5 uIU/mL may warrant further investigation. TSH 3rd Generation ([facility]) 07/31/2025 11:0 5 AM EST 07/31/2025 11:05 AM EST Generic External Data Provider LAB BLOOD ORDERAB LES Final Result Performing Organization Address City/[facility]/ZIP Co de Phone Number [facility] [address] [place] [address] [phone] * T4, Free (07/31/2025 11:05 AM EST) Only the most recent of2 resultswithin the time period is included. Free T4 (Free Thyroxine) 1.02 0.71 - 1.85 ng/dL [facility] 07/31/2025 11:0 5 AM EST 07/31/2025 11:05 AM EST [facility] External Data Provider LAB BLOOD ORDERAB LES Final Result Performing Organization Address [facility] Co de Phone Number [facility] [address] [place] [phone] * (ABNORMAL) TSH W/Reflex to FT4 (05/05/2025 3:14 PM EDT) TSH reflex Free T4 0.25(L) 0.32 - 4.0 uIU/mL [facility] Blood Venous blood specimen / Unknown 05/05/2025 3:14 PM EDT 05/05/2025 3:14 PM EDT [facility] LAB BLOOD ORDERABLES Final Resul t Performing Organization Address City/[facility] Co de Phone Number [facility] [address] [place] [phone] * (ABNORMAL) CBC auto differential (05/05/2025 3:14 PM EDT) White Blood Count 5.7 4.8 - 10.8 X10*3/uL [facility] Red Blood Count 4.44 4.20 - 5.50 X10*6/uL [facility] Hemoglobin 12.6 12.0 - 16.0 g/dl [facility] Hematocrit 36.9(L) 37.0 - 47.0 % [facility] Mean Corpuscular Volume 83.1 80.0 - 98.0 fL [facility] Mean Corpuscular Hemoglobin 28.4 27.0 - 33.0 pg [facility] Mean Corpuscular HGB Conc 34.1 31.0 - 35.0 g/dl [facility] Red Cell Distribution Width 13.4 11.0 - 16.0 % [facility] Platelet Count 233 160 - 400 X10*3/uL [facility] Mean Platelet Volume 10.5 9.4 - 12.3 fL [facility] Neutrophils Percent Auto 46.2 45 - 73 % [facility] Imm Gran Pct Auto 0.3 0.0 - 0.4 % [facility] Lymphocytes Percent Auto 41.3(H) 20 - 40 % [facility] Monocytes Percent Auto 9.6 2 - 11 % [facility] Eosinophils Percent Auto 1.7 0 - 4 % [facility] Basophils Percent Auto 0.9 0 - 2 % [facility] NRBC Pct Auto 0.0 0.0 - 0.2 /100WBC [facility] Neutrophils Absolute Auto 2.7 2.0 - 8.3 x10*3/uL [facility] Imm Gran Abs Auto 0.02 0.00 - 0.03 X10*3/uL [facility] Lymphocytes Absolute Auto 2.4 1.2 - 4.9 X10*3/uL [facility] Monocytes Absolute Auto 0.6 0.1 - 1.2 X10*3/uL [facility] Eosinophils Absolute Auto 0.1 0.0 - 0.4 X10*3/uL [facility] Basophils Absolute Auto 0.1 0.0 - 0.2 X10*3/uL [facility] NRBC Abs Auto 0.000 0.0 - 0.012 X10*3/uL [facility] Blood Venous blood specimen / Unknown 05/05/2025 3:14 PM EDT 05/05/2025 3:14 PM EDT Yesica Lawler ANP LAB BLOOD ORDERABLES Final Resul t Performing Organization Address [facility] de Phone Number [facility] [address] [place] [phone] * Hemoglobin A1c (05/05/2025 3:14 PM EDT) Hemoglobin A1c 5.8 <6.0 % [facility] Comment:Hemoglobin A1C Refer ence Range Adults: 4.8 - 6.0 % Non diabetic: < 6.0 % Goal: < 7.0 %Additional Action Suggested: > 8.0 %Note: Hemoglobin A1c results are invalid for patients with abnormal amounts of HbF. Blood transfusions may impact the HbA1c concentration in the patient sample. Estimated Average Glucose 120 mg/dL [facility] Comment:eAG = Estimated ave rage glucose which is %A1C expressed asaverage glucose, using the formula of the Y6F-XxtzvnzUntgvmo Glucose study (ADAG), Diabetes Care, Vol.31,#8,Mar. 2007 Blood Venous blood specimen / Unknown 05/05/2025 3:14 PM EDT 05/05/2025 3:14 PM EDT Yesica Flores ANP LAB BLOOD ORDERABLES Final Resul t Performing Organization Address [facility] Co de Phone Number [facility] [address] [place] [phone] [phone] * Vitamin B12 (05/05/2025 3:14 PM EDT) Vitamin B12 368 200 - 900 pg/mL [facility] Comment:NORMAL 200-900 PG/ML INDETERMINATE 160-199 PG/ML DEFICIENT < 160 PG/ML Blood Venous blood specimen / Unknown 05/05/2025 3:14 PM EDT 05/05/2025 3:14 PM EDT Yesica Flores ANP LAB BLOOD ORDERABLES Final Resul t Performing Organization Address [facility]/ZIP Co de Phone Number [facility] [address] [place] [phone] * (ABNORMAL) Creatine Kinase, Total (05/05/2025 3:14 PM EDT) Creatine Kinase Total 143(H) 26 - 140 U/L [facility] Blood Venous blood specimen / Unknown 05/05/2025 3:14 PM EDT 05/05/2025 3:14 PM EDT Yesica Flores [facility] LAB BLOOD ORDERABLES Final Resul t Performing Organization Address [facility]/ZIP Co de Phone Number [facility] [address] [place] [phone] * (ABNORMAL) Basic Metabolic Panel (05/05/2025 3:14 PM EDT) Sodium 143 135 - 145 mmol/L [facility] Potassium 4.1 3.3 - 5.1 mmol/L [facility] Chloride 108 96 - 108 mmol/L [facility] Carbon Dioxide 28 22 - 29 mmol/L [facility] Anion Gap 11(L) 12 - 20 [facility] Urea Nitrogen (BUN) 17(H) 9 - 16 mg/dL [facility] Creatinine, Serum 1.01 0.5 - 1.4 mg/dL [facility] Estimated Glomerular Filt Rate 57 [facility] Comment:Chronic Kidney Disea se: Estimated GFR < 60 mL/min/1.66w2Kqtofm Kidney Disease: Estimated GFR < 15 mL/min/1.73m2 Glucose 102 60 - 115 mg/dL [facility] Calcium 9.3 8.4 - 10.2 mg/dL [facility] Blood Venous blood specimen / Unknown 05/05/2025 3:14 PM EDT 05/05/2025 3:14 PM EDT Yesica Flores ANP LAB BLOOD ORDERABLES Final Resul t [facility] [address] [place] [phone] * BI Mammogram Screening Tomosynthesis Bilateral (03/10/2025 3:02 PM EDT) Anatomical Region Laterality Modality Breast Bilateral Mammography 03/10/2025 3:02 PM EDT Narrative 03/21/2025 11:17 AM EDT [address] [place] [address] Mammography Report Signed Patient: Arianna Nicole MR#: [id number] : 1970 Acct:[id number] Age/Sex: 54 / F ADM Date: 03/10/25 Loc: HO.MAMMO Attending Dr: Yesica Flores NP Ordering Physician: YESICA FLORES NP Results: 1Negative Date of Service: 03/10/25 Follow Up: 1 Year From [facility] Mammogram Procedure(s): MM tomosynthesis screening BI Accession Number(s): [id number] cc: YESIAC FLORES NP EXAMINATION: MM SCREENING DIGITAL BREAST [...] 03/21/25 1113 DD/ 1502 TD/TT: 03/10/25 1520 Surveyor Oil Well Directional: Procedure Note Donotuseinterpreter, Image - 03/21/2025 [facility] [address] [place] [address] Mammography Report Signed Patient: CoreyEdnaMR#: [id number] : 1970Acct:[id number] Age/Sex: 54 / FADM Date: 03/10/25 Loc: HO.MAMMO Attending Dr: Yesica Flores NP Ordering Physician: YESICA FLORES NPResults: 1Negative Date of Service: 03/10/25Follow Up: 1 Year From Orig inal Mammogram Procedure(s): MM tomosynthesis screening BI Accession Number(s): [id number] cc: YESICA FLORES NP EXAMINATION: MM SCREENING [...] 03/21/25 1113 DD/ 1502 TD/TT: 03/10/25 1520 Surveyor Oil Well Directional: Yesica Flores ANP IMG BI PROCEDURES Edited Result - Final * HIV-1/2 Antigen and Antibodies, Fourth Generation, with Reflexes (10/03/2022 9:03 AM EST) HIV Antigen/Antibody, 4th Generation NON-REAC TIVE NON-REAC TIVE [email or web address] Comment: HIV-1 antigen and HIV-1/HIV-2 antibodies were [...] purpose. For additional information please refer to http://education.[employer]/faq/FVZ611 (This link is being provided for informational/ educational purposes only.) The performance of this assay has not been clinically validated in patients less than 2 years old. Blood Venous blood specimen / Unknown 10/03/2022 9:03 AM EST 10/03/2022 9:04 AM EST Narrative [facility] - 10/07/2022 3:43 PM EST FASTING:YES FASTING: YES us Yesica Flores ANP LAB BLOOD ORDERABLES Final Resul t [facility] [address] [facility] [place] [address] [employer] [email or web address] [address] [facility], ([address]) [place] [phone] * THINPREP TIS PAP AND HPV mRNA [...] has been evaluated with computer assisted technology. [facility] Land Survey Technician: SEE COMMENT [facility] Comment: CMG, CT(ASCP) CT screening location: [place] [address] HPV nRNA E6/E7 Not Detected Not Detected [facility] Comment: Methodology: Health Care Legal Assistant-Mediated Amplification This assay detects E6/E7 viral messenger RNA (mRNA) from 14 high-risk HPV types (16,18,31,33,35,39,45,51,52,56,58,59,66,68). The analytical performance characteristics of this assay have been determined by [employer]. The modifications have not been cleared or approved by the FDA. This assay has been validated pursuant to the CLIA regulations and is used for clinical purposes. For additional information, please refer to http://education.[employer]/faq/JWB844s2 (This link if provided for information/ educational [...] Partially obscuring inflammation 11/20/2021 9:08 AM EDT us Eryn Presley CNM LAB PATHOLOGY ORDERABLES Final Result [facility] [address] [place] [address], * (ABNORMAL) Hm Colonoscopy (05/20/2019) Colonoscopy Abnormal(A ) Normal 05/20/2019 Jesu Pa MD HEALTH MAINTENANCE Final Res ult from Last 3 Months or Most Recently Relevant to Health Maintenance [place] [address] [place] [address] C3 HSN FULL Care Teams Bait Man Relationship Specialty Start Date End Date Yesica Flores ANP [address] [place] [address] PCP - General Family Medicine 04/16/20
--- OUTSIDE RECORDS SUMMARY | 2025-08-01 10:52 | XMS_ITS | Encounter Summary ---
Author Organization [email or web address] Address [address] [facility] 7t [place] [address] Care Team Providers Care Chain Sales Representative Name Role Phone Adeline Faustin Primary Care Provider [phone] Reason for Visit * Reason Onset Date Comments Pt1 02/02/2024 Encounter Details Date Type Department Care Team ([facility] st Contact Info) Description 02/02/2024 Telephone [facility] MEDICINE [address] [place] [address] Adeline Faustin ANP [address] [place], [place] [phone] Pt1 Social History Tobacco Use Types Packs/Day [...] Y/N: Yes Provider name or facility name: [facility] : [facility] Facility Address: [address] [place] [address] [place] [id number] Escort needed: Y/N: No Do you have [...] documented as of this encounter Care Teams Chain Sales Representative Relationship Specialty Start Date End Date Adeline Faustin ANP [address] [place] [address] [place] [address] PCP - General Family Medicine 04/16/20 documented as of this encounter
== END 2025-08-01 11:03 | disposition home or self-care (01) ==
LOC: HO.ENCR 09:24
PROVIDERS: PCP Nurse Practitioner Primary Care; Visit Provider Internal Medicine Endocrinology, Diabetes & Metabolism
DX: E03.9 Hypothyroidism, unspecified (principal)
CPT/HCPCS: 99213

== ENCOUNTER → 2025-08-01 09:23 | Outpatient (BNVA) | payer MEDICAID, SELFPAY | PROVIDERS: PCP Nurse Practitioner Primary Care; Visit Provider Internal Medicine Endocrinology, Diabetes & Metabolism | DX: E03.9 Hypothyroidism, unspecified (principal); Z79.899 Other long term (current) drug therapy | CPT/HCPCS: 99212 ==